=== PATIENT | male | born 1950 | race Caucasian/White ===

== ENCOUNTER 2017-06-07 06:00 | Inpatient (IN) ==
[2017-06-07] MEDS ORDERED: *HR* Phenylephrine 10 MG/ML VIAL ONE (07:28)
[2017-06-07] MEDS ORDERED: Vancomycin 1,000 MG in D5% in Water 250 ML IVPB ONE ×2 (07:30→18:30)
[2017-06-07] MEDS ORDERED: Albuterol 2.5 MG/3 ML NEBULIZER IH ONE (07:30)
[2017-06-07] MEDS ORDERED: Lidocaine -MPF 1% 2 ML VIAL ID ONE (07:30)
[2017-06-07] MEDS ORDERED: CeFAZolin Syr 2,000MG/20 ML 2,000 MG/20 ML SYRINGE IVPB ONE (07:30)
[2017-06-07] MEDS ORDERED: Ringers Solution, Lactated 1,000 ML IVC SCH (07:30)
--- NOTE | 2017-06-07 07:33 | History & Physical Report ---
Date of Encounter: 06/07/17 Time of Encounter: 07:30 24 Hour HP Update - Instructions Instructions: If the History and Physical is less than 30 days old and was completed prior to A.M. admission and or procedure and has NOT been updated on calendar day of procedure please complete this update prior to performing procedure. - Update Patient reports changes in Medical Condition: No Changes in examination, assessment, or condition: No Changes in Medication: No Preop tests/diagnostics Reviewed: Yes Surgery Remains Indicated: Yes Consent for Planned Operative Procedure(s) Verified: Yes - Pre-Operative Checklist Preoperative Checklist Indicated: Yes Prophylactic Antibiotic Ordered: Yes (vancomycin due to MRSA risk) Home Medications Include Beta Pernell: Yes Beta Pernell Taken Today (Day of Surgery): Yes Beta Pernell Taken Yesterday (Day Prior to Surgery): Yes Is VTE Prophylaxis Indicated?: Yes
[2017-06-07] MEDS ORDERED: Heparin 1,000 UNITS/500 mL 500 ML ONE (07:56)
--- NOTE | 2017-06-07 07:58 | Anesthesia Evaluation PreOp ---
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 Hernia, Gastric bypass), Past Anesthesia (Triple Bypass, Ing. Hernia, Gastri Bypass, R. Knee scope, Cardiac Ablation) Alcohol Use: occasionally Drug use: none Medications and Allergies OxyCODONE Immed Rel [Roxicodone 5 MG] 5 - 10 mg PO Q6HR PRN #40 tablet 04/24/15 [Rx] Aspirin Enteric Coated [Aspirin EC] 81 mg PO DAILY 11/24/15 [History] Cholecalciferol (D-3) [Vitamin D] 2,000 unit PO BID 11/24/15 [History] Cyanocobalamin (Vitamin B-12) [Vitamin B-12] 1,000 mcg SL HS 11/24/15 [History] Fluticasone Propionate Nasal [Flonase] 1 spr NS DAILY 11/24/15 [History] Furosemide [Lasix] 20 mg PO DAILY PRN 11/24/15 [History] Isosorbide MONOnitrate (24 HR) [Imdur] 30 mg PO DAILY 11/24/15 [History] Levothyroxine [Synthroid] 50 mcg PO DAILY 11/24/15 [History] Loratadine [Claritin] 10 mg PO DAILY 11/24/15 [History] Losartan [Cozaar] 25 mg PO DAILY 11/24/15 [History] Montelukast [Singulair] 10 mg PO HS 11/24/15 [History] Morphine Immed Rel [Morphine Sulfate] 15 mg PO Q8HR 11/24/15 [History] Omeprazole [PriLOSEC] 20 mg PO BID 11/24/15 [History] OxyCODONE Immed Rel [Roxicodone 5 MG] 5 - 10 mg PO BID PRN 11/24/15 [History] Ranolazine [Ranexa] 500 mg PO BID 07/13/16 [History] Rivaroxaban [Xarelto] 20 mg PO DAILY 11/24/15 [History] Sotalol HCl [Betapace] 120 mg PO BID 11/24/15 [History] Venlafaxine [Effexor] 37.5 mg PO BID 11/24/15 [History] Zolpidem [Ambien] 10 mg PO HS 11/24/15 [History] buPROPion HCl [Zyban] 150 mg PO Q12H 11/24/15 [History] clonazePAM [Klonopin] 1 mg PO HS 11/24/15 [History] 3 Allergy/AdvReac Type Severity Reaction Status Date / Time fentanyl AdvReac See Verified 06/07/17 07:41 Comments NSAIDS (Non-Steroidal AdvReac Nausea Verified 06/07/17 07:41 Anti-Inflamma - Meds/Allergy Pre-op Review Medications Reviewed: Yes Allergies Reviewed: Yes Beta Blockers on Current Med List: No If Beta Blockers taken, Date/Time (Last Dose taken): 05:30 06/07/2017 Anesthesia Results - Labs 04/16/17 stress test EF-67% No Ischemia Laboratory Tests 04/06/15 04/06/15 05/03/17 15:00 15:00 00:07 WBC 7.6 Hgb 16.1 Hct 49.7 Plt Count 214 INR 1.08 Sodium Potassium Chloride Carbon Dioxide BUN Creatinine Hemoglobin A1c 5.3 05/03/17 00:07 WBC Hgb Hct Plt Count INR Sodium 144 Potassium 4.6 Chloride 109 H Carbon Dioxide 27 BUN 14 Creatinine 0.98 Hemoglobin A1c - Imaging EKG: report reviewed (SR, RBBB) Anesthesia Exam O2 Sat Height 1.73 m Height 1.73 m Height 1.73 m Weight 70.307 kg Weight 70.307 kg Weight 70.307 kg O2 Sat by Pulse Oximetry 97 O2 Sat by Pulse Oximetry 97 O2 Sat by Pulse Oximetry 97 Vital Signs Temp Pulse Resp BP Pulse Ox 97.9 F 85 18 101/69 97 06/07/17 06:29 06/07/17 06:29 06/07/17 06:29 06/07/17 06:29 06/07/17 06:29 NPO (# of Hours): > 8 hrs Pain Scale: 0 Pain Scale Used: Numeric (1 - 10) - HEENT Pupil (Motor): Pupils equal, EOMI Mallampati: III Teeth: Edentulous Oral Opening: Greater than 3 - 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
[2017-06-07] MEDS ORDERED: Lidocaine -MPF 2% 2 ML VIAL ONE ×2 (08:20→08:42)
[2017-06-07] MEDS ORDERED: *HR* Rocuronium Bromide 50 MG/5 ML VIAL ONE ×2 (08:20→10:42)
[2017-06-07] MEDS ORDERED: *HR* Propofol 200 MG/20 ML VIAL IVP ONE (08:20)
[2017-06-07] MEDS ORDERED: Ketamine *HR* 500 MG/10 ML MDV ONE (08:21)
[2017-06-07] MEDS ORDERED: *HR* FentaNYL (PF) 100 MCG/2 ML VIAL ONE (08:47)
[2017-06-07] MEDS ORDERED: *HR* Midazolam HCl 2 MG/2 ML VIAL ONE (08:48)
[2017-06-07] MEDS ORDERED: Heparin 1,000 UNITS/500 mL 1,500 ML ONE (08:49)
[2017-06-07] MEDS ORDERED: Vancomycin 1,000 MG, Sodium Chloride IRRigation 1,000 ML IR ONE (09:00)
--- NOTE | 2017-06-07 09:07 | Electrocardiograph Report ---
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
[2017-06-07] MEDS ORDERED: *HR* Labetalol 20 MG/4 ML SYRINGE IVP PRN ×2 (10:03→15:33)
[2017-06-07] MEDS ORDERED: Ondansetron 4 MG/2 ML VIAL IVP PRN (10:03)
[2017-06-07] MEDS ORDERED: *HR* Heparin 5,000 UNIT/ML VIAL ONE ×2 (11:11→11:34)
[2017-06-07] MEDS ORDERED: *HR* Magnesium Sulfate 1 GM/2 ML VIAL ONE ×2 (11:31→11:40)
[2017-06-07] MEDS ORDERED: *HR* HYDROmorphone 2 MG/ML SYRINGE ONE (11:35)
[2017-06-07] MEDS ORDERED: Vancomycin 1,000 MG VIAL ONE (11:47)
[2017-06-07 12:14] LABS: ABG Base Excess -2 mEq/L (-2 to 3); ABG Chloride 107 mEq/L (98-107); ABG Glucose 178 mg/dL (60-95); ABG HCO3 23 mEq/L (21-27); ABG Ionized Calcium 1.17 mmol/L (1.15-1.35); ABG Oxygen Saturation 100 % (95-98); ABG PCO2 42 mmHg (35-45); ABG PH 7.35 pH Units (7.32-7.45); ABG PO2 197 mmHg (85-104); ABG TCO2 24 mEq/L (20-26)
[2017-06-07] MEDS ORDERED: Ondansetron 4 MG/2 ML VIAL ONE (12:28)
[2017-06-07] MEDS ORDERED: Dexamethasone 4 MG/ML VIAL ONE (12:28)
[2017-06-07] MEDS ORDERED: SUGAMMADEX SODIUM 500 MG/5 ML VIAL IV ONE (12:49)
--- NOTE | 2017-06-07 13:59 | Operative Note ---
Date of procedure: 06/07/17 Pre-op diagnosis: Peripheral vascular disease with ulceration Post-op diagnosis: same Procedure: 1. Aortobifemoral artery bypass with 14 x 7mm Hemashield graft. 2. Bilateral common and deep femoral artery endarterectomy. Complications: None Anesthesia: GETA Surgeon: Joni Lora Was there an assistant baseball coach present: Yes Computer Operations Supervisor: Stevie Condon Estimated blood loss (cc): 300 Specimen: thrombus and plaque Condition: stable Disposition: PACU Procedure in Detail: Indications: The patient is a 66 year old male with a history of coronary artery disease, hypertension, hyperlipidemia, COPD, coronary artery disease and tobacco abuse. He has also undergone an open gastric bypass. He presented to clinic with peripheral vascular disease with bilateral heel ulcerations. 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 Aortobifemoral artery bypass was recommended for wound healing, symptomatic relief and to reduce his risk of limb loss. Procedure: The patient was identified in the preoperative area. The risks, benefits, and alternatives of the procedure were discussed. All questions were answered. The patient was taken to the operating room and placed in supine position on the operating room table. After the induction of general endotracheal anesthesia, he was cleaned and draped in normal sterile fashion. A two surgeon approach was utilized for this procedure in order to minimize anesthetic time and the risks for complications due to the patients comorbid conditions. In addition, a two surgeon approach was used for intraoperative decision making. An oblique incision was made over the right groin scar sharply. Hemostasis was obtained with electrocautery. Through a process of blunt, sharp, and electrocautery dissection, the right femoral vessels were dissected circumferentially and surrounded with vessel loops. The right limb of his femoral to femoral artery bypass graft was also dissected. An oblique incision was then made over the left groin scar sharply. Hemostasis was obtained with electrocautery. Through a process of blunt, sharp, and electrocautery dissection, the left femoral vessels were dissected circumferentially and surrounded with vessel loops. A midline incision was made sharply. This included his dense midline incision. Hemaostasis was obtained via electrocautery. Through a process of blunt, sharp and electrocautery dissection, the subcutaneous tissue, fascia and peritoneum were traversed. He was noted to have a ventral hernia as a result of his prior surgery. Multiple omental adhesions were taken down from the abdominal wall sharply ad with electrocautery. A brief exploration of the peritoneum revealed no acute pathology. Additional lysis of adhesions was performed sharply. The aorta was palpated in the retroperitoneum. The retroperitoneum was opened with blunt, sharp and electrocautery dissection. The aorta was dissected along it's anterior, medial and lateral surfaces to below the renal arteries. The dissection was extended down to the aortic bifurcation. A clamp was used to tunnel through the retroperitoneum to each femoral vessel. The patient received 5000 units of intravenous heparin. Additional heparin was given during the case to maintain adequate anticoagulation. A 14 x 7mm dacron bifurcated graft was cut to appropriate length. The infrarenal aorta was clamped proximally and distally. A longitudinal incision was made into the aorta between the clamps. Significant plaque and thrombus was removed. The aorta was flushed by releasing the clamp and a large organized thrombus emerged. The aorta was clamped again and infused with heparinized saline. The graft was cut to fit the defect and sutured in place with a running 3-0 prolene. After completing the anastamosis, the graft limbs were clamped and the aorta was reopened. Thrombin and gelfoam were used to aid in hemostasis. The graft limbs were tunneled to the femoral vessels. The bilateral femoral vessels were occluded and longitudinal arteriotomies were made in the common femoral arteries. Severe atherosclerotic plaque and chronic thrombus was present in the bilateral common and deep femoral arteries. Using a dental freer, an endarterectomy was then performed along the bilateral common and deep femoral arteries. Retrograde deep femoral artery flow was then noted bilaterally. The bilateral graft limbs were then cut to fit the arteriotomies and sutured in place with a running 6-0 Prolene. Prior to completing the anastamoses, the femoral vessels were flushed through the graft anastamoses and heparin was infused into the lumen. The anastamoses were completed and flow was restored in the right lower extremity. After assuring appropriate hemodynamics flow was restored to the left lower extremity. Thrombin and gelfoam were used to aid in hemostasis. Polyphasic signals were noted distal to the anastamoses. The wounds were irrigated with antibiotic-containing saline. Platelet rich and platelet poor plasma were infused into the wounds. Meticulous hemostasis was obtained throughout the wounds with electrocautery. The femoral wounds were reapproximated with layers of 2-0 and 3-0 Vicryl. Skin was reapproximated with 3-0 Monocryl. The abomen and pelvis were irrigated with antibiotic containing saline. Meticulous hemostasis was obtained throughout the retroperitoneum with electrocautery. The retroperitoneum was reapproximated with 2-0 Vicryl. The abdominal contents were returned to their normal anatomic position The nasogastric tube was checked for position. The midline fascia was reapproximated with looped PDS suture. The subcutaneous tissue was reapproximated with 2-0 Vicryl. Platelet rich and platelet poor plasma were infused into the wound. Skin was reapproximated with 3-0 Monocryl. Sterile dressings were applied. The patient was extubated and taken to recovery room in stable condition.
[2017-06-07] MEDS: *HR* HYDROmorphone (PF) 1 MG/ML SYRINGE IVP PRN ×4 (14:03→14:26)
--- NOTE | 2017-06-07 14:08 | Operative Note ---
Date of procedure: 06/07/17 Pre-op diagnosis: PAD and heel ulcers Post-op diagnosis: same Procedure: Aortobifemoral bypass graft with 14 x 7 mm Dacron prosthesis Bilateral femoral and profunda femoris endarterectomy Complications: None none Anesthesia: THAO Surgeon: Joni Lora Co-Surgeon: Stevie Condon Was there an periodontal assistant present: No Estimated blood loss (cc): 300 Specimen: Aortic and femoral thrombus and plaque Disposition: PACU Procedure in Detail: History Mr. Ramirez is a 66-year-old white male with known lower cavity vascular occlusive disease. He's had progressive changes in his developed ulcerations of his heels. Workup has revealed significant aortoiliac occlusive disease. He now comes for elective revascularization of both lower extremities. Procedure After informed consent was obtained the patient was taken the operating room. General endotracheal anesthesia was established under arterial line pressure monitoring. The abdomen and groins and upper thighs were sterilely prepped and draped. A timeout protocol was observed. 2 team surgical approach was used for this procedure due to the patient's comorbid conditions. Also it was utilized in order to expedite complex intraoperative decision-making as well as to minimize, patient's associated with prolonged anesthesia blood loss. The femoral areas were then explored through transverse incisions simultaneously. Dissection was carried down to the common femoral artery and femoral artery bifurcation. Marked atherosclerotic and calcific disease was noted. The groins were then packed with an back containing gauzes. The abdomen was then opened through a vertical midline incision. The patient had had previous abdominal surgery with gastric bypass surgery. Dissection was made and the peritoneal cavity was opened. Adhesions were then taken down and the peroneal cavity was then free. Exploration of the abdominal cavity revealed no abnormalities except those associated with the patient's previous gastric bypass surgery. This row was then reflected into the right upper quadrant. The retroperitoneum was opened and identification was made of the aorta which was then dissected in its infrarenal location. An appropriate place for a cross- clamp was selected both proximally and distally. The tunneling was then completed from the groin into the aortic area. The patient that had a 14 x 7 graft selected. 5000 units heparin were administered intravenously. After 3 minute delay the aorta was clamped. The aorta was opened in a longitudinal fashion anteriorly. The large amount of chronic thrombus and atherosclerotic material was encountered. This was then greeted in the area was flushed with heparinized saline. The aorta itself was flushed as well. The proximal anastomosis was then fashioned in an end to side configuration with a 14 x 7 mm dacryon prosthesis. 3-0 Prolene was used for this anastomosis. After hemostasis was achieved at the proximal anastomosis the grafts were then tunneled through the previously made tunnels into the groin area. The common femoral arteries were then opened. Endarterectomies were performed bilaterally. There is significant calcific disease as well as chronic thrombus. The grafts were then anastomosed in an end-to-side fashion using 6-0 Prolene suture. After appropriate backbleeding and flushing the graft was opened. Patient had no hemodynamic distress. The wounds were then irrigated with antibiotic containing solution. Hemostasis was achieved. The groin wounds were closed first using absorbable suture. Attention was then directed to the abdomen. The retroperitoneal area was then closed over the graft. The viscera was placed back into its normal position. The fascia over the closed with a looped PDS suture and the skin edges closed with absorbable suture. Dry sterile dressings were applied. The patient was hemodynamically stable and x-rayed in the operating room. He was taken to the recovery room in stable condition.
[2017-06-07] MEDS ORDERED: *HR* Promethazine 25 MG/ML VIAL ONE (14:13)
[2017-06-07] MEDS: *HR* Promethazine 25 MG/ML VIAL IVP PRN ×2 (14:15→14:27)
[2017-06-07] MEDS ORDERED: Metoclopramide 10 MG/2 ML VIAL IVP PRN (14:47)
[2017-06-07] MEDS ORDERED: Acetaminophen IV 1,000 MG/100 ML INFUS..BTL IVPB ONE (14:48)
[2017-06-07] MEDS ORDERED: Scopolamine Patch 1.5 MG PATCH.TD72 TD ONE (14:48)
[2017-06-07] MEDS ORDERED: Acetaminophen IV 1,000 MG/100 ML INFUS..BTL ONE (14:57)
[2017-06-07] MEDS ORDERED: Metoclopramide 10 MG/2 ML VIAL ONE (14:57)
--- NOTE | 2017-06-07 15:10 | Anesthesia Evaluation Post Op ---
Date of Encounter: 06/07/17 Time of Encounter: 15:09 - Vital Signs Vital Signs: Vital Signs/O2 Sat, Most Current Temp Pulse Resp BP Pulse Ox 97.2 F L 74 14 158/90 100 06/07/17 14:43 06/07/17 15:03 06/07/17 15:03 06/07/17 15:03 06/07/17 15:03 - Lungs Lungs: Clear Ascult./Percussion - Airway Airway: Non-obstructed - Cardiovascular Regular Rate - Mental Status Mental Status: Alert & Oriented, Answers Appropriately - Pain Pain Scale: 0 Pain Scale used: Numeric (1 - 10) - Hydration Hydration: NPO, Hyman catheter - Discharge PostOp Status: Transfer Patient to floor
[2017-06-07] MEDS ORDERED: Naloxone 0.4 MG/ML INJ IVP PRN ×2 (15:33)
[2017-06-07] MEDS ORDERED: *HR* LORazepam 2 MG/ML VIAL ONE (16:07)
[2017-06-07] MEDS: *HR* LORazepam 2 MG/ML VIAL IVP PRN ×2 (16:32→23:05)
[2017-06-07] MEDS: 0.9 % Sodium Chloride 1,000 ML IVC SCH (16:35)
[2017-06-07] MEDS: CeFAZolin Premix DUPLEX 2,000 MG/50 ML BAG IVPB SCH ×2 (16:41→23:06)
[2017-06-07 16:58] LABS: Basophils # 0.1 K/mcL (0.0-0.2); Basophils % 0.5 %; Eosinophils # 0.1 K/mcL (0.0-0.6); Eosinophils % 0.3 %; Hemoglobin 14.8 g/dL (12.9-16.9); Immature Granulocytes % 0.5 % (0-4); Lymphocytes # 1.7 K/mcL (0.6-4.6); Lymphocytes % 11.5 %; Mean Corpuscular HGB Conc 32.2 g/dL (31.6-35.5); Mean Corpuscular Hemoglobin 31.5 pg (28.0-33.3); Mean Corpuscular Volume 97.9 fL (83.0-100.0); Mean Platelet Volume 11.2 fL (9.4-12.4); Monocytes # 0.7 K/mcL (0.0-1.3); Monocytes % 4.9 %; Neutrophils # 12.4 K/mcL (1.6-8.9); Platelet Count 155 K/mcL (140-400); Red Cell Distribution Width 13.8 % (11.5-14.5); Segmented Neutrophils % 82.3 %
[2017-06-07] MEDS: *HR* Morphine 30 MG/ 30 ML PCA IVC PRN ×2 (17:26→23:46)
[2017-06-07] MEDS: *HR* Metoprolol 5 MG/5 ML VIAL IVP SCH (18:14)
[2017-06-07] MEDS: Nicotine 21 MG PATCH.TD24 TD SCH (18:57)
[2017-06-08] MEDS: *HR* Metoprolol 5 MG/5 ML VIAL IVP SCH ×4 (00:33→20:10)
[2017-06-08 03:57] LABS: Basophils % 0.2 %; Hemoglobin 14.2 g/dL (12.9-16.9); Immature Granulocytes % 0.5 % (0-4); Red Cell Distribution Width 13.7 % (11.5-14.5); Segmented Neutrophils % 79.5 %
[2017-06-08 03:58] LABS: Basophils # 0.1 K/mcL (0.0-0.2); Hematocrit 43.9 % (37.5-50.1); Lymphocytes # 2.4 K/mcL (0.6-4.6); Lymphocytes % 8.6 %; Mean Corpuscular HGB Conc 32.3 g/dL (31.6-35.5); Mean Corpuscular Hemoglobin 31.3 pg (28.0-33.3); Mean Corpuscular Volume 96.9 fL (83.0-100.0); Mean Platelet Volume 11.4 fL (9.4-12.4); Monocytes # 3.1 K/mcL (0.0-1.3); Monocytes % 11.2 %; Platelet Count 153 K/mcL (140-400); Red Blood Count 4.53 M/mcL (4.19-5.50)
[2017-06-08 04:02] LABS: Neutrophils # 21.8 K/mcL (1.6-8.9)
[2017-06-08 04:17] LABS: BUN/Creatinine Ratio 18 (6-26); Blood Urea Nitrogen 23 mg/dL (8-23); Calcium 8.4 mg/dL (8.6-10.3); Carbon Dioxide 23 mEq/L (23-29); Chloride 106 mEq/L (98-107); Glucose 155 mg/dL (70-105); Osmolality,Calculated 289 (280-300); Potassium 4.8 mEq/L (3.5-5.1); Sodium 136 mEq/L (136-145); eGFR For African Americans > 60 (> 60); eGFR For Non-African Americans 58 (> 60)
[2017-06-08 04:35] LABS: Platelet Estimate Normal (Normal); Reactive Lymphocytes Present (Not Present); Toxic Granulation Present (Not Present)
[2017-06-08] MEDS: *HR* Morphine 30 MG/ 30 ML PCA IVC PRN (06:18)
[2017-06-08] MEDS: Levothyroxine Sodium 100 MCG VIAL IVP SCH (08:02)
[2017-06-08] MEDS: Aspirin Enteric Coated 81 MG Tablet PO SCH (08:02)
[2017-06-08] MEDS ORDERED: *HR* Metoprolol 5 MG/5 ML VIAL IVP ONE (08:05)
[2017-06-08] MEDS ORDERED: *HR* Etomidate 20 MG/10 ML AMPUL IVP ONE (08:14)
[2017-06-08] MEDS ORDERED: *HR* Rocuronium Bromide 50 MG/5 ML VIAL IVC ONE (08:14)
[2017-06-08] MEDS: Fluticasone Propionate Nasal 50 MCG/SPRAY BOTTLE NS SCH (10:22)
[2017-06-08] MEDS: Nicotine 21 MG PATCH.TD24 TD SCH (10:23)
[2017-06-08] MEDS ORDERED: Naloxone 0.4 MG/ML INJ ONE (15:00)
[2017-06-08] MEDS ORDERED: *HR* Morphine 30 MG/ 30 ML PCA IVC PRN (15:11)
[2017-06-08] MEDS ORDERED: 0.9 % Sodium Chloride 500 ML IVC ONE ×2 (15:22→21:35)
[2017-06-08] MEDS ORDERED: *HR* Dextrose 50 % in Water (Syg) 50 ML SYRINGE ONE ×3 (16:09→19:31)
--- NOTE | 2017-06-08 17:00 | Event Note ---
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 He is POD 1 Chart review reveals hx of Afib on xarelto, Hx of DVT with IVC placed, on xarelto at home. The patient complains of epigastric discomfort STAT CXR (pending interpretation by radiologist) shows small RML/RLL infiltrate EKG showed Afib with RVR, RBBB, TWI in lateral leads (unchanged when compared with prior EKGs) ABG shows resp acidosis with hypoxia and hypercapnea Patient was placed on BiPAP Plan is to transfer patient to the intensive care unit for management of acute hypoxic respiratory failure, possibly secondary to PE, Pneumonia Follow STAT labs Patient is very poor IV access, may need central line placement for IV access Dr. Jackson was met in ICU and patient discussed with him
[2017-06-08 17:03] LABS: ABG Base Excess -14 mEq/L (-2 to 3); ABG HCO3 12 mEq/L (21-27); ABG Oxygen Saturation 80 % (95-98); ABG PCO2 30 mmHg (35-45); ABG PH 7.22 pH Units (7.32-7.45); ABG PO2 52 mmHg (85-104); ABG TCO2 13 mEq/L (20-26)
[2017-06-08 17:23] LABS: Hematocrit 35.1 % (37.5-50.1); Mean Corpuscular HGB Conc 31.9 g/dL (31.6-35.5); Mean Corpuscular Hemoglobin 31.8 pg (28.0-33.3); Mean Corpuscular Volume 99.7 fL (83.0-100.0); Mean Platelet Volume 11.1 fL (9.4-12.4); Platelet Count 105 K/mcL (140-400); Red Blood Count 3.52 M/mcL (4.19-5.50); Red Cell Distribution Width 14.1 % (11.5-14.5)
[2017-06-08 17:25] LABS: ABG Base Excess -11 mEq/L (-2 to 3); ABG HCO3 16 mEq/L (21-27); ABG Oxygen Saturation 100 % (95-98); ABG PCO2 39 mmHg (35-45); ABG PH 7.23 pH Units (7.32-7.45); ABG PO2 201 mmHg (85-104); ABG TCO2 17 mEq/L (20-26)
[2017-06-08] MEDS ORDERED: Lacri-Lube 3.5 GM TUBE BOTH EYES PRN (17:30)
[2017-06-08 17:34] LABS: Hemoglobin 11.2 g/dL (12.9-16.9)
[2017-06-08] MEDS ORDERED: Naloxone 0.4 MG/ML INJ IVP PRN (17:34)
--- NOTE | 2017-06-08 17:42 | Vascular/[facility] Progress Note ---
Date of Encounter: 06/08/17 Time of Encounter: 07:40 - Assessment and plan (1) Atherosclerosis of both lower extremities with bilateral ulceration Current Visit: Yes Status: Chronic The patient is postoperative day #1 after an aortobifemoral artery bypass. He is hemodynamically stable at this time. He has nausea. He pulled his NG tube out and will now have a new NG tube placed. He will remain NPO. His WBC is elevated. His hemoglobin is normal. He remains afebrile. Continue with intravenous fluids. Start DVT prophylaxis this evening. Repeat labs in am. Qualifiers: Peripheral atherosclerosis artery type: bypass graft, nonbiological Lower extremity ulceration location: heel Qualified Code(s): I70.634 - Atherosclerosis of nonbiological bypass graft(s) of the right leg with ulceration of heel and midfoot; I70.644 - Atherosclerosis of nonbiological bypass graft(s) of the left leg with ulceration of heel and midfoot; I70.644 - Atherosclerosis of nonbiological bypass graft(s) of the left leg with ulceration of heel and midfoot; I70.644 - Atherosclerosis of nonbiological bypass graft(s) of the left leg with ulceration of heel and midfoot; I70.644 - Atherosclerosis of nonbiological bypass graft(s) of the left leg with ulceration of heel and midfoot; I70.644 - Atherosclerosis of nonbiological bypass graft(s) of the left leg with ulceration of heel and midfoot; I70.644 - Atherosclerosis of nonbiological bypass graft(s) of the left leg with ulceration of heel and midfoot (2) Hypertension Current Visit: Yes Status: Chronic Continue with beta anais. Qualifiers: Hypertension type: essential hypertension Qualified Code(s): I10 - Essential (primary) hypertension (3) Atrial fibrillation Current Visit: Yes Status: Chronic Qualifiers: Atrial fibrillation type: paroxysmal Qualified Code(s): I48.0 - Paroxysmal atrial fibrillation (4) CAD (coronary artery disease) Current Visit: Yes Status: Chronic Qualifiers: Coronary Disease-Associated Artery/Lesion type: [place] artery [place] vs. transplanted heart: [place] heart Associated angina: without angina Qualified Code(s): I25.10 - Atherosclerotic heart disease of [place] coronary artery without angina pectoris (5) Hyperlipidemia Current Visit: Yes Status: Chronic Qualifiers: Hyperlipidemia type: mixed hyperlipidemia Qualified Code(s): E78.2 - Mixed hyperlipidemia (6) Tobacco abuse Current Visit: Yes Status: Acute Nicotine patch - Subjective Interval history: The patient is alert. He reports adequate pain control. He complains of nausea. He has had no vomiting, no chest pain or shortness of breath. - Physical Examination HEENT: Present: Pupils equal Cardiac: Present: Normal S1 and S2, Other (tachyardic) Lungs: Present: Normal Breath Sounds, No Wheeze, Rales, Rhonchi Neuro: Present: Alert and responsive, Motor nerves grossly intact, Sensory nerves grossly intact Vascular: Present: Normal capillary refill, Surgical incisions (bandages dry, no heamtoma), Other (pedal signals present bilaterally, compartments soft) Abdomen: Present: Soft, Other (incisional tenderness, no bowel sounds) Skin: Present: No rashes noted on visualized skin - VTE Documentation of Mechanical Device: Intermittent pneumatic compression device Results 06/08/17 19:40 06/08/17 17:15 Consult Discharge Plan - Plan Referrals: Joni Lora MD [Partnered Physician] - 07/17/17 2:20 pm Arti Thacker MD [Primary Care Provider] - 06/15/17 11:00 am
[2017-06-08 17:58] LABS: Alanine Aminotransferase 38 Units/L (7-52); Albumin 2.6 g/dL (3.5-5.7); Albumin/Globulin Ratio 1.4 (1.1-2.2); Alkaline Phosphatase 53 Units/L (34-104); Aspartate Amino Transferase 119 Units/L (13-39); BUN/Creatinine Ratio 15 (6-26); Bilirubin,Total 0.5 mg/dL (0.3-1.0); Blood Urea Nitrogen 33 mg/dL (8-23); Calcium 7.8 mg/dL (8.6-10.3); Carbon Dioxide 20 mEq/L (23-29); Chloride 112 mEq/L (98-107); Globulin 1.9 g/dL (2.4-3.5); Glucose 31 mg/dL (70-105); Magnesium 2.2 mg/dL (1.6-2.6); Osmolality,Calculated 294 (280-300); Phosphorous 6.1 mg/dL (2.7-4.5); Potassium 4.4 mEq/L (3.5-5.1); Sodium 140 mEq/L (136-145); Total Protein 4.5 g/dL (6.4-8.9); eGFR For African Americans 36 (> 60); eGFR For Non-African Americans 30 (> 60)
--- NOTE | 2017-06-08 17:59 | Event Note ---
Date of Encounter: 06/08/17 Time of Encounter: 17:30 Called to see patient regarding progressive hypoxia. Rapid response called. Patient started on BIPAP and transferred to ICU. Ultimately he has been intubated. Exam reveals a soft abdomen. His incisions are clean, dry and intact. He has pedal signals. Patient discussed with Dr. Salas. Patient family contacted and clinical condition was discussed.
[2017-06-08] MEDS ORDERED: *HR* Heparin 5,000 UNIT/ML VIAL SQ SCH ×2 (18:00)
[2017-06-08] MEDS ORDERED: Vancomycin 1,000 MG in D5% in Water 250 ML IVPB SCH (18:00)
--- NOTE | 2017-06-08 18:40 | Procedure Note ---
<Alex Hinkle - Last Filed: 06/08/17 18:35> Date of procedure: 06/08/17 Pre-op diagnosis: septic shock Post-op diagnosis: same Procedure: Central Venous Catheter (CVC, Central Line) Placement Date: 06/08/2017 Time: 1800 Indication: Hemodynamic monitoring/Intravenous access Resident: Alex Hinkle DO Attending: Otto Salas MD This procedure was placed in an emergency setting. A time-out was completed verifying correct patient, procedure, site, positioning , and special equipment if applicable. The patient was placed in a dependent position appropriate for central line placement based on the vein to be cannulated. The patients right neck was prepped and draped in sterile fashion. 1 % Lidocaine was used to anesthetize the surrounding skin area. A triple lumen 7- [place] catheter was introduced into the the internal jugular using the Seldinger technique and under ultrasound guidance. The catheter was threaded smoothly over the guide wire and appropriate blood return was obtained. Each lumen of the catheter was evacuated of air and flushed with sterile saline. The catheter was then sutured in place to the skin and a sterile dressing applied. Perfusion to the extremity distal to the point of catheter insertion was checked and found to be adequate. Otto Salas MD was present for the entire procedure. Estimated Blood Loss: 0ml The patient tolerated the procedure well and there were no complications. Anesthesia: local Was there an operations assistant present: No Estimated blood loss (cc): 0 Specimen: none Pathology: none sent Condition: critical Disposition: ICU <Otto Salas W - Last Filed: 06/08/17 18:58> - Attending Attestation I examined this patient and my medical decision-making was reviewed with the Resident Physician. I agree with the documented findings except to the extent set forth below. I supervised Dr. Hinkle in this central venous catheter insertion and was available and participated in the trinh and critical portions
[2017-06-08] MEDS: Norepinephrine 4 MG in D5% in Water 250 ML IVC SCH ×2 (19:00→22:27)
--- NOTE | 2017-06-08 19:04 | Procedure Note ---
Date of procedure: 06/08/17 Pre-op diagnosis: Respiratory Failure Post-op diagnosis: same Procedure: Intubation Time out was deffered as the procedure was emergent.. The patient was placed in a flat position. Sedation was obtained using Rocironium and Etomidate (see RN sheet) The patient was easily ventilated using BIPAP then an Ambu bag. A COOK 3 BLADE was used and inserted into the oropharynx at which time there was a Grade 1 view of the vocal cords. A 7.5-fijian endotracheal tube was inserted and visualized going through the vocal cords. The stylette was removed. Colorimetric change was visualized on the CO2 meter. Breath sounds were heard in both lung moseley equally. The endotracheal tube was placed at 24 cm, measured at the lips A chest x-ray was ordered and verified endotrachealtube placement without evidence of Pneumothorax . Surgeon: Otto Salas Was there an admissions assistant present: No Estimated blood loss (cc): 0 Specimen: non e Condition: critical Disposition: no change
--- NOTE | 2017-06-08 19:06 | Pulmonology Consult Note ---
<Otto Salas W - Last Filed: 06/08/17 19:31> Date of Encounter: 06/08/17 Medications and Allergies Aspirin Enteric Coated [Aspirin EC] 81 mg PO DAILY 11/24/15 [History] Cholecalciferol (D-3) [Vitamin D] 2,000 unit PO BID 11/24/15 [History] Fluticasone Propionate Nasal [Flonase] 1 spr NS DAILY 11/24/15 [History] Isosorbide MONOnitrate (24 HR) [Imdur] 30 mg PO DAILY 11/24/15 [History] Loratadine [Claritin] 10 mg PO DAILY 11/24/15 [History] Losartan [Cozaar] 25 mg PO DAILY 11/24/15 [History] Montelukast [Singulair] 10 mg PO HS 11/24/15 [History] Rivaroxaban [Xarelto] 20 mg PO DAILY 11/24/15 [History] Sotalol HCl [Betapace] 120 mg PO BID 11/24/15 [History] Zolpidem [Ambien] 10 mg PO HS PRN 11/24/15 [History] clonazePAM [Klonopin] 1 mg PO BID 11/24/15 [History] Docusate [Colace] 100 mg PO BID 06/07/17 [History] Levothyroxine [Synthroid] 100 mcg PO 0630 06/07/17 [History] Morphine Immed Rel [Morphine Sulfate] 15 mg PO Q8H PRN 06/07/17 [History] Omeprazole [PriLOSEC] 40 mg PO BID 06/07/17 [History] Ondansetron [Zofran] 8 mg PO Q8H PRN 06/07/17 [History] OxyCODONE/APAP 7.5/325 [Percocet 7.5/325 MG] 1 each PO Q6H PRN 06/07/17 [History ] Simvastatin [Zocor] 20 mg PO HS 06/07/17 [History] Venlafaxine HCl [Venlafaxine HCl ER] 225 mg PO DAILY 06/07/17 [History] 3 Allergy/AdvReac Type Severity Reaction Status Date / Time fentanyl AdvReac See Verified 06/07/17 07:41 Comments NSAIDS (Non-Steroidal AdvReac Nausea Verified 06/07/17 07:41 Anti-Inflamma All Systems: A 10-system review of systems was performed and is negative for pertinent findings except as documented above in the HPI. Physical Examination Vital Signs: Vital Signs, Last 4 Hours Temp Pulse Resp BP Pulse Ox 06/08/17 17:31 20 100 06/08/17 16:33 97.1 F L 110 36 158/129 87 06/08/17 16:24 98/42 06/08/17 15:59 97.2 F L 110 22 Ventilator Settings Ventilator Settings: Ventilator Settings, Last 8 Hours Ventilator Mode A/C Ventilator Tidal Volume 500 Setting Ventilator Respiratory Rate 20 Setting Actual Respiratory Rate 20 Positive End Expiratory 8 Pressure Peak Inspiratory Airway 26 Pressure Results - Laboratory Findings CBC and BMP: 06/08/17 17:15 06/08/17 17:15 ABG ABG pH 7.23 pH Units (7.32-7.45) L 06/08/17 17:22 ABG pCO2 39 mmHg (35-45) 06/08/17 17:22 ABG pO2 201 mmHg (85-104) H D 06/08/17 17:22 ABG O2 Saturation 100 % (95-98) H 06/08/17 17:22 Abnormal lab findings: Abnormal lab results WBC 16.9 K/mcL (4.3-11.1) H 06/08/17 17:15 RBC 3.52 M/mcL (4.19-5.50) L 06/08/17 17:15 Hgb 11.2 g/dL (12.9-16.9) L D 06/08/17 17:15 Hct 35.1 % (37.5-50.1) L 06/08/17 17:15 Plt Count 105 K/mcL (140-400) L 06/08/17 17:15 Neutrophils # 21.8 K/mcL (1.6-8.9) H 06/08/17 03:26 Monocytes # 3.1 K/mcL (0.0-1.3) H 06/08/17 03:26 Reactive Lymphocytes Present (Not Present) A 06/08/17 03:26 Toxic Granulation Present (Not Present) A 06/08/17 03:26 ABG pH 7.23 pH Units (7.32-7.45) L 06/08/17 17:22 ABG pO2 201 mmHg (85-104) H D 06/08/17 17:22 ABG HCO3 16 mEq/L (21-27) L 06/08/17 17:22 ABG Total CO2 17 mEq/L (20-26) L 06/08/17 17:22 ABG O2 Saturation 100 % (95-98) H 06/08/17 17:22 ABG Base Excess -11 mEq/L (-2 to 3) L 06/08/17 17:22 ABG Hematocrit 37.0 % (37.5-50.1) L 06/07/17 12:07 Glucose 178 mg/dL (60-95) H 06/07/17 12:07 Chloride 112 mEq/L (98-107) H 06/08/17 17:15 Carbon Dioxide 20 mEq/L (23-29) L 06/08/17 17:15 BUN 33 mg/dL (8-23) H 06/08/17 17:15 Creatinine 2.25 mg/dL (0.70-1.30) H 06/08/17 17:15 Est GFR ( Amer) 36 (> 60) L 06/08/17 17:15 Est GFR (Non-Af Amer) 30 (> 60) L 06/08/17 17:15 Glucose 31 mg/dL (70-105) L* 06/08/17 17:15 POC Glucose 125 (58-89) H 06/08/17 10:16 Calcium 7.8 mg/dL (8.6-10.3) L 06/08/17 17:15 Phosphorus 6.1 mg/dL (2.7-4.5) H 06/08/17 17:15 AST 119 Units/L (13-39) H 06/08/17 17:15 Troponin I 0.04 ng/mL (< 0.04) H* 06/08/17 17:15 B-Natriuretic Peptide 346 pg/mL (Less than 100) H 06/08/17 17:15 Serum Total Protein 4.5 g/dL (6.4-8.9) L 06/08/17 17:15 Albumin 2.6 g/dL (3.5-5.7) L 06/08/17 17:15 Globulin 1.9 g/dL (2.4-3.5) L 06/08/17 17:15 - Clinical Findings Intake & Output: Intake & Output 06/08/17 06/08/17 06/08/17 07:59 15:59 23:59 Intake Total 0 / 0 0 / 0 Output Total 45 / 45 900 / 900 Balance -45 / -45 -900 / -900 Weight 71.6 kg Consult Discharge Plan - Plan Referrals: Joni Lora MD [Partnered Physician] - 07/17/17 2:20 pm Arti Thacker MD [Primary Care Provider] - 06/15/17 11:00 am - Attending Attestation I examined this patient and my medical decision-making was reviewed with the Resident Physician. I agree with the documented findings, disposition and treatment plan as described except to the extent set forth below. We independently had [id number] contact with the patient I spent 40min of Critical Care time with this patient. It involved decision making of high complexity to assess, manipulate, and support vital organ system failure and/or to prevent further life threatening deterioration of the patient' s condition. The time involved in the performance of separately reportable procedures was not counted toward critical care time. Patient seen and examined at bedside Labs, radiology, chart personally reviewed. 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 When I examined the patient prior to intubation he was able to follow commands and arousable and moved all extremities to command without evidence of focal neurological deficit. Pulm: Acute hypoxic respiratory failure secondary to likely pneumonia cannot exclude pulmonary embolus he is now intubated and on ventilator acceptable peak pressures continue low tidal volume ventilatory strategy for possibility of progression to ARDS. Repeat ABG pending and we will adjust Vent accordingly. Ideally could obtain CTA of the chest however he has acute kidney injury which makes the risk of contrast greater than benefit in this case we will start empiric heparin while closely monitoring his H&H because of the high pretest probability of pulmonary embolus including his past medical history Cards: Vasodilatory shock likely secondary to sepsis less likely pulmonary embolus ECG troponin and BMP pending. Consider echocardiogram based upon clinical course. Fluid resuscitation given trend lactate FEN-GI: Nothing by mouth for now GI prophylaxis given. Noted to have free air under diaphragm CT abdomen and pelvis also ordered to evaluate this Renal: Non Anuric RUBY cont urine output monitored as her electrolytes ID: Suspected pneumonia and postoperative period he is on antimicrobials to cover for hospital-acquired organisms blood sputum and urine cultures will be sent de-escalate antimicrobials based upon sensitivities Heme/Onc: Start high-intensity heparin infusion for presumed pulmonary embolus. He has a slight drop in his H&H from yesterday which is thought to be postoperative in nature. No clear evidence of hemorrhage Endo: Glucose Monitored is noted to be hypoglycemic we will follow this closely Integ/MSK: Skin Care per routine ICU Nursing Protocol to prevent ulcers. Lines: All lines examined without evidence of infection : Dispo: Remain in ICU for ongoing critical care needs CODE: Full his son and [id number] were updated at bedside <Alex Duff S - Last Filed: 06/08/17 21:37> Date of Encounter: 06/08/17 Time of Encounter: 19:06 Assessment and Plan (1) Respiratory failure Current Visit: Yes Status: Acute Patient began experiencing dyspnea earlier this afternoon and subsequently continued to grow's. The patient was subsequently intubated and placed on a ventilator. The patient does have a history of PE and is not currently on Zarontin. With his past history of PE we are concerned about possibility as well as combined with the patient's recent vascular aortobifemoral bypass. The patient will be started on heparin. His hemoglobin we continued to be monitored as the patient is in the ICU. In addition the patient was noted to have a left pleural effusion on chest x-ray. Given the patient's recent surgery and toward failure, we will treat this as infectious. The patient was started on vancomycin and Zosyn for hospital associated pneumonia. We will perform a CT of the patient's chest as we are unable to perform a CTA of the patient's chest at this time due to patient's renal function. We will continue to hydrate the patient and likely repeat imaging as renal function improves. Qualifiers: Chronicity: acute Respiratory failure complication: unspecified whether with hypoxia or hypercapnia Qualified Code(s): J96.00 - Acute respiratory failure, unspecified whether with hypoxia or hypercapnia (2) Shock Current Visit: Yes Status: Acute The patient was noted to be hypotensive and subsequently received a right IJ CVC. The patient was started on norepinephrine. Blood pressures have stabilized this time. The patient was administered 2 L IV fluid upon arrival to the ICU. He has received a third here in the ICU. The patient's blood pressure is continued to remain stable. This is likely associated with infectious etiology. We are unable to rule out completely any bleeding around surgical site but given the well appearance of surgical sites and lack of bruising or rigidity of the abdomen, this is likely associated with infectious cause. We will continue to monitor the patient's hemoglobin is we have started the patient on a heparin drip for possible pulmonary embolus. In addition the patient will receive a CT of the chest abdomen and pelvis to determine if there is any obvious leaking. We will have to perform this noncontrast at this time due to patient's acute kidney injury. We will continue hydrating the patient. (3) Pleural effusion, left Current Visit: Yes Status: Acute (4) S/P aorto-bifemoral bypass surgery Current Visit: Yes Status: Acute (5) RUBY (acute kidney injury) Current Visit: Yes Status: Acute We will continue patient on IV hydration with likely resolution of patient's acute kidney injury. (6) Hypoglycemia Current Visit: Yes Status: Acute Patient was administered amp of D50. He was also placed on a D10 drip at 50 mL per hour with reassessment after 2 hours and likely de-escalation. We will continue to monitor the patient's blood glucose every 2 hours once it normalizes. This is likely secondary to patient's acute decline likely associated with sepsis. (7) Atrial fibrillation Current Visit: Yes Status: Chronic Qualifiers: Atrial fibrillation type: paroxysmal Qualified Code(s): I48.0 - Paroxysmal atrial fibrillation (8) CAD (coronary artery disease) Current Visit: Yes Status: Chronic Qualifiers: Coronary Disease-Associated Artery/Lesion type: [place] artery [place] vs. transplanted heart: [place] heart Associated angina: without angina Qualified Code(s): I25.10 - Atherosclerotic heart disease of [place] coronary artery without angina pectoris (9) Hyperlipidemia Current Visit: Yes Status: Chronic Qualifiers: Hyperlipidemia type: mixed hyperlipidemia Qualified Code(s): E78.2 - Mixed hyperlipidemia (10) Hypertension Current Visit: Yes Status: Chronic Qualifiers: Hypertension type: essential hypertension Qualified Code(s): I10 - Essential (primary) hypertension (11) Diabetes mellitus Current Visit: No Status: Chronic Qualifiers: Diabetes mellitus type: type 2 Diabetes mellitus complication status: with unspecified complications Diabetes mellitus bed bug exterminator insulin use: unspecified bed bug exterminator insulin use status Qualified Code(s): E11.8 - Type 2 diabetes mellitus with unspecified complications History of Present Illness Consult date: 06/08/17 Requesting physician: Joni Lora Reason for consult: dyspnea Chief complaint: Dyspnea, respiratory failure, hypotension History of present illness: 66-year-old male with history of diabetes, CAD, atrial fibrillation, peripheral vascular disease who arrives to [facility] for an elective aortobifemoral bypass due to associated worsening of peripheral vascular disease by vascular surgery. The patient is now postop day 1. He has been doing well on the floor with the exception of an acute worsening of his condition today. The patient became very short of breath and became tachypneic. The patient was subsequently placed on BiPAP. The patient continued to deteriorate and become hypotensive. He was given 2 L of normal saline fluid boluses and transported to the ICU for further care and workup. He was subsequently intubated and a central line was placed at bedside due to hypotension. The patient was noted to have a small left pleural effusion. Given the patient's region intubation and now respiratory failure we are concerned about infectious etiology with possible pneumonia. The patient was started on vancomycin and Zosyn. Blood cultures were drawn as well. The patient was placed on a norepinephrine drip. The patient was also noted to be hypoglycemic and upon arrival to the ICU his glucose was most recently 32. The patient was given D50 and started on a D10 drip at this time. The patient is currently sedated with fentanyl. Patient's renal function has continued to worsen so the patient will be started on a heparin drip with concern for possible PE given the patient's past history of DVT and immediate change in respiratory status. The patient's hemoglobin will be continued to be trended. A noncontrast CT of the chest, abdomen, pelvis will be obtained with any possible ideology or bleeding. The patient has no bruising noted in his abdomen that is worsening and no changes in his incision cote. This was noted also by vascular surgeon who evaluated the patient. His abdomen is soft at this time. Past Med Surg Social Fam HX - Past Medical History Source: old records reviewed Medical history: arthritis, atrial fibrillation, cancer, diabetes, hypertension Psychiatric history: anxiety, depression - Past Surgical History Surgical History: coronary bypass (CABG) - Social History Smoking Status: Current every day smoker Packs per day: 2 Smokeless Tobacco Status: No Alcohol use: occasionally Drug use: none ROS unobtainable: due to endotracheal tube All Systems: A 10-system review of systems was performed and is negative for pertinent findings except as documented above in the HPI. Physical Examination Vital Signs: Vital Signs, Last 4 Hours Temp Pulse Resp BP Pulse Ox 06/08/17 17:31 20 100 06/08/17 16:33 97.1 F L 110 36 158/129 87 06/08/17 16:24 98/42 06/08/17 15:59 97.2 F L 110 22 General appearance: other (Patient is currently intubated and sedated) Eyes: nonicteric ENT: oropharynx moist Effort: other (Patient is currently ventilated.) Auscultation: bilateral: other (Course breath sounds bilaterally without any overt wheezing, rales, rhonchi) Cardiovascular: other (Tachycardic and regular) Gastrointestinal: non-distended Integumentary: normal Extremities: no cyanosis, pulses normal unable to assess due to mental status Ventilator Settings Ventilator Settings: Ventilator Settings, Last 8 Hours Ventilator Mode A/C Ventilator Tidal Volume 500 Setting Ventilator Respiratory Rate 20 Setting Actual Respiratory Rate 20 Positive End Expiratory 8 Pressure Peak Inspiratory Airway 26 Pressure Results - Laboratory Findings CBC and BMP: 06/08/17 19:40 06/08/17 17:15 ABG ABG pH 7.23 pH Units (7.32-7.45) L 06/08/17 17:22 ABG pCO2 39 mmHg (35-45) 06/08/17 17:22 ABG pO2 201 mmHg (85-104) H D 06/08/17 17:22 ABG O2 Saturation 100 % (95-98) H 06/08/17 17:22 Abnormal lab findings: Abnormal lab results WBC 16.9 K/mcL (4.3-11.1) H 06/08/17 17:15 RBC 3.52 M/mcL (4.19-5.50) L 06/08/17 17:15 Hgb 11.2 g/dL (12.9-16.9) L D 06/08/17 17:15 Hct 35.1 % (37.5-50.1) L 06/08/17 17:15 Plt Count 105 K/mcL (140-400) L 06/08/17 17:15 Neutrophils # 21.8 K/mcL (1.6-8.9) H 06/08/17 03:26 Monocytes # 3.1 K/mcL (0.0-1.3) H 06/08/17 03:26 Reactive Lymphocytes Present (Not Present) A 06/08/17 03:26 Toxic Granulation Present (Not Present) A 06/08/17 03:26 ABG pH 7.23 pH Units (7.32-7.45) L 06/08/17 17:22 ABG pO2 201 mmHg (85-104) H D 06/08/17 17:22 ABG HCO3 16 mEq/L (21-27) L 06/08/17 17:22 ABG Total CO2 17 mEq/L (20-26) L 06/08/17 17:22 ABG O2 Saturation 100 % (95-98) H 06/08/17 17:22 ABG Base Excess -11 mEq/L (-2 to 3) L 06/08/17 17:22 ABG Hematocrit 37.0 % (37.5-50.1) L 06/07/17 12:07 Glucose 178 mg/dL (60-95) H 06/07/17 12:07 Chloride 112 mEq/L (98-107) H 06/08/17 17:15 Carbon Dioxide 20 mEq/L (23-29) L 06/08/17 17:15 BUN 33 mg/dL (8-23) H 06/08/17 17:15 Creatinine 2.25 mg/dL (0.70-1.30) H 06/08/17 17:15 Est GFR ( Amer) 36 (> 60) L 06/08/17 17:15 Est GFR (Non-Af Amer) 30 (> 60) L 06/08/17 17:15 Glucose 31 mg/dL (70-105) L* 06/08/17 17:15 POC Glucose 125 (58-89) H 06/08/17 10:16 Calcium 7.8 mg/dL (8.6-10.3) L 06/08/17 17:15 Phosphorus 6.1 mg/dL (2.7-4.5) H 06/08/17 17:15 AST 119 Units/L (13-39) H 06/08/17 17:15 Troponin I 0.04 ng/mL (< 0.04) H* 06/08/17 17:15 B-Natriuretic Peptide 346 pg/mL (Less than 100) H 06/08/17 17:15 Serum Total Protein 4.5 g/dL (6.4-8.9) L 06/08/17 17:15 Albumin 2.6 g/dL (3.5-5.7) L 06/08/17 17:15 Globulin 1.9 g/dL (2.4-3.5) L 06/08/17 17:15 - Clinical Findings Intake & Output: Intake & Output 06/08/17 06/08/17 06/08/17 07:59 15:59 23:59 Intake Total 0 / 0 0 / 0 Output Total 45 / 45 900 / 900 Balance -45 / -45 -900 / -900 Weight 71.6 kg - Attending Attestation I examined this patient and my medical decision-making was reviewed with the Resident Physician. I agree with the documented findings, disposition and treatment plan as described except to the extent set forth below. Sepsis Reassessment Note - Evaluation Sepsis Screen: No Definite Risk Current Stage of Sepsis: septic shock Possible Source of Sepsis: pulmonary - Focused Exam Date of Encounter: 06/08/17 Time of Encounter: 21:36 Vital Signs: Vital Signs Temp Pulse Resp BP Pulse Ox 06/08/17 17:31 20 100 06/08/17 16:33 97.1 F L 110 36 158/129 87 06/08/17 16:24 98/42 06/08/17 15:59 97.2 F L 110 22 06/08/17 11:18 97.4 F L 120 24 110/60 90 06/08/17 10:12 90 06/08/17 08:41 90 Respiratory Exam: Present: crackles Cardiovascular Exam: Present: tachycardia Capillary Refill: < 2 seconds Peripheral Pulse Strength: 2+ slightly diminished Peripheral Pulse Location: Radial Skin Exam: pale
[2017-06-08 19:15] LABS: INR 1.1; Prothrombin Time 11.4 Seconds (9.4-12.1)
[2017-06-08 19:18] LABS: Activated Partial Thrombo Time 62.9 Seconds (26.0-36.0)
[2017-06-08] MEDS ORDERED: *HR* Heparin 5,000 UNIT/ML VIAL IVP PRN ×2 (19:18)
[2017-06-08] MEDS ORDERED: 0.9 % Sodium Chloride 1,000 ML IVC ONE (19:18)
[2017-06-08] MEDS ORDERED: *HR* Heparin 5,000 UNIT/ML VIAL IVP ONE (19:18)
[2017-06-08] MEDS ORDERED: Heparin 25,000 UNIT/500 ML D5W 25,000 UNIT/500 ML BAG IVC SCH (19:30)
[2017-06-08 19:44] LABS: Hematocrit 36.7 % (37.5-50.1); Hemoglobin 11.7 g/dL (12.9-16.9); Mean Corpuscular HGB Conc 31.9 g/dL (31.6-35.5); Mean Corpuscular Hemoglobin 31.5 pg (28.0-33.3); Mean Corpuscular Volume 98.7 fL (83.0-100.0); Mean Platelet Volume 11.4 fL (9.4-12.4); Platelet Count 106 K/mcL (140-400); Red Blood Count 3.72 M/mcL (4.19-5.50); Red Cell Distribution Width 14.1 % (11.5-14.5)
[2017-06-08 19:45] LABS: Nucleated Red Blood Cells 0.2 /100 WBC (0)
[2017-06-08] MEDS: FentaNYL (PF) 1,000 MCG in 0.9 % Sodium Chloride 80 ML IVC SCH (19:54)
[2017-06-08 19:55] LABS: Bilirubin,Direct 0.2 mg/dL (0.0-0.2); Bilirubin,Indirect 0.3 mg/dL (0.0-1.2)
[2017-06-08] MEDS: *HR* Dextrose 50 % in Water (Syg) 50 ML SYRINGE IVP PRN (19:55)
[2017-06-08] MEDS: 0.9 % Sodium Chloride 1,000 ML IVC SCH ×2 (19:56→21:34)
[2017-06-08] MEDS: Dexmedetomidine HCl 400 MCG/100 ML MLS IVC SCH (20:13)
[2017-06-08] MEDS: Dextrose 50 % in Water (Vial) 50 ML in D5% in 0.2% NACL 500 ML IVC SCH (20:16)
[2017-06-08 20:23] LABS: ABG Base Excess -9 mEq/L (-2 to 3); ABG HCO3 19 mEq/L (21-27); ABG Oxygen Saturation 90 % (95-98); ABG PCO2 53 mmHg (35-45); ABG PH 7.17 pH Units (7.32-7.45); ABG PO2 75 mmHg (85-104); ABG TCO2 21 mEq/L (20-26); Blood Gas Modality ASSIST CONTROL; Blood Gas Respiration Rate 20; Blood Gas VT 500 cc
[2017-06-08 20:25] LABS: Lymphocytes # 3.1 K/mcL (0.6-4.6); Monocytes # 1.4 K/mcL (0.0-1.3); Neutrophils # 12.7 K/mcL (1.6-8.9); Reactive Lymphocytes Present (Not Present); Smudge Cells Present (Not Present)
[2017-06-08 20:26] LABS: Toxic Granulation Present (Not Present)
[2017-06-08 20:27] LABS: Platelet Estimate Slight Decrease (Normal)
[2017-06-08] MEDS: Pantoprazole 40 MG VIAL IVP SCH (21:32)
[2017-06-08] MEDS: Chlorhexidine Rinse 15 ML MOUTHWASH MM SCH (21:33)
[2017-06-08] MEDS: Piperacillin/Tazobactam 3.375 GM/200 ML BAG IVPB SCH (21:33)
[2017-06-08] MEDS: Lacri-Lube 3.5 GM TUBE BOTH EYES SCH ×2 (21:33→22:44)
[2017-06-08] MEDS: Vancomycin 1,000 MG in D5% in Water 250 ML IVPB SCH (21:33)
[2017-06-08 21:53] LABS: ABG Base Excess -8 mEq/L (-2 to 3); ABG HCO3 20 mEq/L (21-27); ABG Oxygen Saturation 84 % (95-98); ABG PCO2 47 mmHg (35-45); ABG PH 7.22 pH Units (7.32-7.45); ABG PO2 58 mmHg (85-104); ABG TCO2 21 mEq/L (20-26); Blood Gas Modality ASSIST CONTROL; Blood Gas Respiration Rate 26; Blood Gas VT 500 cc
[2017-06-08] MEDS: Ipratropium/Albuterol Neb 3 ML IH SCH (21:58)
[2017-06-08] MEDS ORDERED: Vasopressin 40 UNIT in D5% in Water 100 ML IV SCH (22:15)
[2017-06-08 22:23] LABS: Thyroid Stimulating Hormone 16.394 mcIU/mL (0.340-5.600)
[2017-06-08] MEDS ORDERED: Phenylephrine 10 MG in D5% in Water 250 ML IVC SCH (23:45)
[2017-06-08] MEDS: *HR* Midazolam HCl 2 MG/2 ML VIAL IVP PRN (23:56)
[2017-06-09 01:32] LABS: Hemoglobin 11.2 g/dL (12.9-16.9)
[2017-06-09] MEDS: *HR* Metoprolol 5 MG/5 ML VIAL IVP SCH ×4 (01:42→18:33)
[2017-06-09] MEDS: Norepinephrine 4 MG in D5% in Water 250 ML IVC SCH (01:50)
[2017-06-09] MEDS: FentaNYL (PF) 1,000 MCG in 0.9 % Sodium Chloride 80 ML IVC SCH ×5 (02:25→23:21)
[2017-06-09] MEDS ORDERED: 0.9 % Sodium Chloride 1,000 ML IVC ONE (02:41)
[2017-06-09 02:46] LABS: Mean Corpuscular Volume 100.6 fL (83.0-100.0); Red Cell Distribution Width 14.1 % (11.5-14.5)
[2017-06-09 02:48] LABS: Hematocrit 35.4 % (37.5-50.1); Hemoglobin 11.1 g/dL (12.9-16.9); Immature Platelets 12.9 % (1.1-6.1); Mean Corpuscular HGB Conc 31.4 g/dL (31.6-35.5); Mean Corpuscular Hemoglobin 31.5 pg (28.0-33.3); Mean Platelet Volume 12.3 fL (9.4-12.4); Nucleated Red Blood Cells 0.5 /100 WBC (0); Red Blood Count 3.52 M/mcL (4.19-5.50)
[2017-06-09 02:52] LABS: Platelet Count 75 K/mcL (140-400)
[2017-06-09] MEDS: Lacri-Lube 3.5 GM TUBE BOTH EYES SCH ×5 (02:57→20:39)
[2017-06-09 03:11] LABS: Potassium 5.8 mEq/L (3.5-5.1)
[2017-06-09] MEDS: Ipratropium/Albuterol Neb 3 ML IH SCH ×4 (03:15→21:23)
[2017-06-09] MEDS ORDERED: Phenylephrine 20 MG in D5% in Water 500 ML IVC SCH (03:15)
[2017-06-09] MEDS: Dexmedetomidine HCl 400 MCG/100 ML MLS IVC SCH ×4 (03:27→23:00)
[2017-06-09] MEDS: Piperacillin/Tazobactam 3.375 GM/200 ML BAG IVPB SCH (03:27)
[2017-06-09] MEDS: Norepinephrine 8 MG in D5% in Water 500 ML IVC SCH ×4 (03:39→18:19)
[2017-06-09] MEDS ORDERED: 0.9 % Sodium Chloride 500 ML ONE ×4 (03:40→13:26)
[2017-06-09 03:41] LABS: Lymphocytes # 2.6 K/mcL (0.6-4.6); Monocytes # 0.5 K/mcL (0.0-1.3); Neutrophils # 5.2 K/mcL (1.6-8.9)
[2017-06-09 03:42] LABS: Large Platelets Present (Not Present); Platelet Estimate Decreased (Normal); Reactive Lymphocytes Present (Not Present); Toxic Granulation Present (Not Present)
[2017-06-09] MEDS ORDERED: Albuterol 2.5 MG/3 ML NEBULIZER IH ONE (04:03)
--- NOTE | 2017-06-09 04:09 | Procedure Note ---
Date of procedure: 06/09/17 Pre-op diagnosis: Hypotension Post-op diagnosis: same Procedure: An arterial line was placed due to inconsistencies with blood pressures and the patient is currently on 3 vasopressors. The patient was placed in the correct position. He was cleaned and draped in the normal fashion. The patient was identified for the correct procedure. The patient had the right radial artery visualized by ultrasound. The catheter was placed under ultrasound guidance. The blood was withdrawn and the guidewire was placed. The catheter was placed over the guidewire without difficulty. Immediate arterial blood return occurred. The catheter was visualize in the artery by ultrasound and confirmed by the arterial pulses noted on monitor. Patient tolerated procedure well with less than 5 mL of blood loss. Anesthesia: none Was there an sales service assistant present: No Estimated blood loss (cc): 5 Specimen: None Pathology: none sent Condition: critical Disposition: ICU
[2017-06-09 04:15] LABS: INR 1.5; Prothrombin Time 16.2 Seconds (9.4-12.1)
[2017-06-09 04:18] LABS: Activated Partial Thrombo Time 46.2 Seconds (26.0-36.0)
[2017-06-09 04:54] LABS: ABG Base Excess -10 mEq/L (-2 to 3); ABG HCO3 19 mEq/L (21-27); ABG Oxygen Saturation 75 % (95-98); ABG PCO2 54 mmHg (35-45); ABG PH 7.15 pH Units (7.32-7.45); ABG PO2 52 mmHg (85-104); ABG TCO2 20 mEq/L (20-26); Blood Gas Modality ASSIST CONTROL; Blood Gas PEEP 10 cm H2O; Blood Gas Respiration Rate 28; Blood Gas VT 480 cc
[2017-06-09] MEDS: Albumin 25% 25gram/100mL 25 GM/100 ML IV.SOLN IVC SCH ×4 (05:24→06:22)
[2017-06-09] MEDS: Hydrocortisone Sodium Succ 100 MG/2 ML VIAL IVP SCH ×3 (05:46→20:40)
[2017-06-09] MEDS: EPINEPHrine 1 MG in D5% in Water 250 ML IVC SCH ×3 (05:50→09:55)
[2017-06-09] MEDS: Atracurium 250 MG in 0.9 % Sodium Chloride 225 ML IVC SCH ×2 (05:57→16:52)
[2017-06-09] MEDS ORDERED: *HR* Heparin 5,000 UNIT/ML VIAL SQ SCH (06:00)
[2017-06-09] MEDS: Meropenem 1,000 MG in Water for inj. (sterile) 10 ML IVP SCH ×2 (06:01→18:53)
[2017-06-09 06:22] LABS: Potassium 4.7 mEq/L (3.5-5.1)
[2017-06-09 07:00] LABS: ABG Base Excess -11 mEq/L (-2 to 3); ABG HCO3 18 mEq/L (21-27); ABG Oxygen Saturation 100 % (95-98); ABG PCO2 51 mmHg (35-45); ABG PH 7.15 pH Units (7.32-7.45); ABG PO2 326 mmHg (85-104); ABG TCO2 19 mEq/L (20-26); Blood Gas Modality ASSIST CONTROL; Blood Gas PEEP 10 cm H2O; Blood Gas Respiration Rate 28; Blood Gas VT 480 cc
--- NOTE | 2017-06-09 07:01 | Pulmonology Progress Note ---
<Zach Terry - Last Filed: 06/09/17 07:01> Date of Encounter: 06/09/17 Time of Encounter: 07:01 Objective PUL Vital signs: Last Vital Signs Temp 98.2 F 06/09/17 02:50 Pulse 120 06/09/17 06:24 Resp 28 06/09/17 06:24 BP 82/63 06/09/17 06:24 Pulse Ox 100 06/09/17 06:24 Ventilator Settings Ventilator Settings: Ventilator Settings, Last 8 Hours Ventilator Mode A/C Ventilator Mode A/C Ventilator Mode A/C Ventilator Mode A/C Ventilator Mode A/C Ventilator Mode A/C Ventilator Mode A/C Ventilator Mode A/C Ventilator Mode A/C Ventilator Mode A/C Ventilator Mode A/C Ventilator Mode A/C Ventilator Tidal Volume 480 Setting Ventilator Tidal Volume 480 Setting Ventilator Tidal Volume 480 Setting Ventilator Tidal Volume 480 Setting Ventilator Tidal Volume 480 Setting Ventilator Tidal Volume 480 Setting Ventilator Tidal Volume 480 Setting Ventilator Tidal Volume 480 Setting Ventilator Tidal Volume 480 Setting Ventilator Tidal Volume 480 Setting Ventilator Tidal Volume 480 Setting Ventilator Tidal Volume 480 Setting Ventilator Respiratory Rate 28 Setting Ventilator Respiratory Rate 28 Setting Ventilator Respiratory Rate 28 Setting Ventilator Respiratory Rate 28 Setting Ventilator Respiratory Rate 28 Setting Ventilator Respiratory Rate 28 Setting Ventilator Respiratory Rate 28 Setting Ventilator Respiratory Rate 28 Setting Ventilator Respiratory Rate 28 Setting Ventilator Respiratory Rate 28 Setting Ventilator Respiratory Rate 28 Setting Ventilator Respiratory Rate 28 Setting Actual Respiratory Rate 28 Actual Respiratory Rate 28 Actual Respiratory Rate 28 Actual Respiratory Rate 28 Actual Respiratory Rate 28 Actual Respiratory Rate 28 Actual Respiratory Rate 30 Actual Respiratory Rate 30 Actual Respiratory Rate 28 Actual Respiratory Rate 28 Actual Respiratory Rate 28 Positive End Expiratory 10 Pressure Positive End Expiratory 10 Pressure Positive End Expiratory 10 Pressure Positive End Expiratory 10 Pressure Positive End Expiratory 10 Pressure Positive End Expiratory 10 Pressure Positive End Expiratory 10 Pressure Positive End Expiratory 10 Pressure Positive End Expiratory 10 Pressure Positive End Expiratory 10 Pressure Positive End Expiratory 10 Pressure Positive End Expiratory 10 Pressure Peak Inspiratory Airway 38 Pressure Peak Inspiratory Airway 38 Pressure Peak Inspiratory Airway 38 Pressure Peak Inspiratory Airway 32 Pressure Peak Inspiratory Airway 34 Pressure Peak Inspiratory Airway 32 Pressure Peak Inspiratory Airway 32 Pressure Peak Inspiratory Airway 32 Pressure Peak Inspiratory Airway 32 Pressure Peak Inspiratory Airway 32 Pressure Peak Inspiratory Airway 32 Pressure Results - Laboratory Findings CBC and BMP: 06/09/17 02:30 06/09/17 05:49 ABG ABG pH 7.15 pH Units (7.32-7.45) L* 06/09/17 06:55 ABG pCO2 51 mmHg (35-45) H 06/09/17 06:55 ABG pO2 326 mmHg (85-104) H D 06/09/17 06:55 ABG O2 Saturation 100 % (95-98) H 06/09/17 06:55 PT/INR, D-dimer PT 16.2 Seconds (9.4-12.1) H 06/09/17 04:00 Abnormal lab findings: Abnormal lab results RBC 3.52 M/mcL (4.19-5.50) L 06/09/17 02:30 Hgb 11.1 g/dL (12.9-16.9) L 06/09/17 02:30 Hct 35.4 % (37.5-50.1) L 06/09/17 02:30 MCV 100.6 fL (83.0-100.0) H 06/09/17 02:30 MCHC 31.4 g/dL (31.6-35.5) L 06/09/17 02:30 Plt Count 75 K/mcL (140-400) L 06/09/17 02:30 Band Neutrophils % 6.0 % (0-4) H 06/09/17 02:30 Metamyelocytes % 4.0 % (0) H 06/09/17 02:30 Nucleated RBCs/100 WBC 0.5 /100 WBC (0) H 06/09/17 02:30 Reactive Lymphocytes Present (Not Present) A 06/09/17 02:30 Smudge Cells Present (Not Present) A 06/08/17 19:40 Toxic Granulation Present (Not Present) A 06/09/17 02:30 Platelet Estimate Decreased (Normal) L 06/09/17 02:30 Large Platelets Present (Not Present) A 06/09/17 02:30 Immature Plt Fraction 12.9 % (1.1-6.1) H 06/09/17 02:30 PT 16.2 Seconds (9.4-12.1) H 06/09/17 04:00 APTT 46.2 Seconds (26.0-36.0) H 06/09/17 04:00 ABG pH 7.15 pH Units (7.32-7.45) L* 06/09/17 06:55 ABG pCO2 51 mmHg (35-45) H 06/09/17 06:55 ABG pO2 326 mmHg (85-104) H D 06/09/17 06:55 ABG HCO3 18 mEq/L (21-27) L 06/09/17 06:55 ABG Total CO2 19 mEq/L (20-26) L 06/09/17 06:55 ABG O2 Saturation 100 % (95-98) H 06/09/17 06:55 ABG Base Excess -11 mEq/L (-2 to 3) L 06/09/17 06:55 ABG Hematocrit 37.0 % (37.5-50.1) L 06/07/17 12:07 Glucose 178 mg/dL (60-95) H 06/07/17 12:07 Sodium 135 mEq/L (136-145) L 06/09/17 05:49 Chloride 108 mEq/L (98-107) H 06/09/17 05:49 Carbon Dioxide 18 mEq/L (23-29) L 06/09/17 05:49 BUN 38 mg/dL (8-23) H 06/09/17 05:49 Creatinine 2.59 mg/dL (0.70-1.30) H 06/09/17 05:49 Est GFR ( Amer) 30 (> 60) L 06/09/17 05:49 Est GFR (Non-Af Amer) 25 (> 60) L 06/09/17 05:49 Lactic Acid 3.3 mmol/L (0.5-2.2) H 06/09/17 05:49 Calcium 7.0 mg/dL (8.6-10.3) L 06/09/17 05:49 Phosphorus 6.1 mg/dL (2.7-4.5) H 06/08/17 17:15 AST 119 Units/L (13-39) H 06/08/17 17:15 Troponin I 0.19 ng/mL (< 0.04) H* 06/09/17 05:49 B-Natriuretic Peptide 346 pg/mL (Less than 100) H 06/08/17 17:15 Serum Total Protein 4.5 g/dL (6.4-8.9) L 06/08/17 17:15 Albumin 2.6 g/dL (3.5-5.7) L 06/08/17 17:15 Globulin 1.9 g/dL (2.4-3.5) L 06/08/17 17:15 TSH 16.394 mcIU/mL (0.340-5.600) H 06/08/17 17:15 - Clinical Findings Intake & Output: Intake & Output 06/08/17 06/08/17 06/09/17 15:59 23:59 07:59 Intake Total 0 / 0 2504 / 2504 964 / 964 Output Total 900 / 900 0 / 0 30 / 30 Balance -900 / -900 2504 / 2504 934 / 934 - VTE Documentation of Mechanical Device: Intermittent pneumatic compression device Consult Discharge Plan - Plan Referrals: Joni Lora MD [Partnered Physician] - 07/17/17 2:20 pm Arti Thacker MD [Primary Care Provider] - 06/15/17 11:00 am <Otto Salas - Last Filed: 06/09/17 12:18> Date of Encounter: 06/09/17 Objective PUL Vital signs: Last Vital Signs Temp 98.6 F 06/09/17 08:46 Pulse 104 06/09/17 09:19 Resp 32 06/09/17 11:14 BP 86/54 06/09/17 11:14 Pulse Ox 100 06/09/17 11:14 Ventilator Settings Ventilator Settings: Ventilator Settings, Last 8 Hours Ventilator Mode A/C Ventilator Mode A/C Ventilator Mode A/C Ventilator Mode A/C Ventilator Mode A/C Ventilator Mode A/C Ventilator Mode A/C Ventilator Mode A/C Ventilator Mode A/C Ventilator Mode A/C Ventilator Mode A/C Ventilator Mode A/C Ventilator Mode A/C Ventilator Mode A/C Ventilator Tidal Volume 450 Setting Ventilator Tidal Volume 450 Setting Ventilator Tidal Volume 480 Setting Ventilator Tidal Volume 480 Setting Ventilator Tidal Volume 480 Setting Ventilator Tidal Volume 480 Setting Ventilator Tidal Volume 450 Setting Ventilator Tidal Volume 450 Setting Ventilator Tidal Volume 480 Setting Ventilator Tidal Volume 480 Setting Ventilator Tidal Volume 480 Setting Ventilator Tidal Volume 480 Setting Ventilator Tidal Volume 480 Setting Ventilator Tidal Volume 480 Setting Ventilator Respiratory Rate 32 Setting Ventilator Respiratory Rate 32 Setting Ventilator Respiratory Rate 32 Setting Ventilator Respiratory Rate 32 Setting Ventilator Respiratory Rate 32 Setting Ventilator Respiratory Rate 32 Setting Ventilator Respiratory Rate 32 Setting Ventilator Respiratory Rate 32 Setting Ventilator Respiratory Rate 28 Setting Ventilator Respiratory Rate 28 Setting Ventilator Respiratory Rate 28 Setting Ventilator Respiratory Rate 28 Setting Ventilator Respiratory Rate 28 Setting Ventilator Respiratory Rate 28 Setting Actual Respiratory Rate 32 Actual Respiratory Rate 32 Actual Respiratory Rate 32 Actual Respiratory Rate 32 Actual Respiratory Rate 32 Actual Respiratory Rate 32 Actual Respiratory Rate 28 Actual Respiratory Rate 28 Actual Respiratory Rate 28 Actual Respiratory Rate 28 Positive End Expiratory 12 Pressure Positive End Expiratory 12 Pressure Positive End Expiratory 12 Pressure Positive End Expiratory 12 Pressure Positive End Expiratory 12 Pressure Positive End Expiratory 12 Pressure Positive End Expiratory 12 Pressure Positive End Expiratory 12 Pressure Positive End Expiratory 10 Pressure Positive End Expiratory 10 Pressure Positive End Expiratory 10 Pressure Positive End Expiratory 10 Pressure Positive End Expiratory 10 Pressure Positive End Expiratory 10 Pressure Peak Inspiratory Airway 40 Pressure Peak Inspiratory Airway 40 Pressure Peak Inspiratory Airway 40 Pressure Peak Inspiratory Airway 40 Pressure Peak Inspiratory Airway 40 Pressure Peak Inspiratory Airway 39 Pressure Peak Inspiratory Airway 38 Pressure Peak Inspiratory Airway 38 Pressure Peak Inspiratory Airway 38 Pressure Peak Inspiratory Airway 38 Pressure Results - Laboratory Findings CBC and BMP: 06/09/17 11:20 06/09/17 11:20 ABG ABG pH 7.12 pH Units (7.32-7.45) L* 06/09/17 10:26 ABG pCO2 50 mmHg (35-45) H 06/09/17 10:26 ABG pO2 92 mmHg (85-104) D 06/09/17 10:26 ABG O2 Saturation 94 % (95-98) L 06/09/17 10:26 PT/INR, D-dimer PT 16.2 Seconds (9.4-12.1) H 06/09/17 04:00 Abnormal lab findings: Abnormal lab results RBC 2.18 M/mcL (4.19-5.50) L 06/09/17 11:20 Hgb 7.0 g/dL (12.9-16.9) L D 06/09/17 11:20 Hct 22.1 % (37.5-50.1) L 06/09/17 11:20 MCV 101.4 fL (83.0-100.0) H 06/09/17 11:20 Plt Count 35 K/mcL (140-400) L D 06/09/17 11:20 MPV 13.4 fL (9.4-12.4) H 06/09/17 11:20 Band Neutrophils % 20.0 % (0-4) H 06/09/17 11:20 Metamyelocytes % 6.0 % (0) H 06/09/17 11:20 Myelocytes % 30.0 % (0) H 06/09/17 11:20 Nucleated RBCs/100 WBC 1.2 /100 WBC (0) H 06/09/17 11:20 Reactive Lymphocytes Present (Not Present) A 06/09/17 11:20 Smudge Cells Present (Not Present) A 06/08/17 19:40 Toxic Granulation Present (Not Present) A 06/09/17 11:20 Toxic Vacuolation Present (Not Present) A 06/09/17 11:20 Dohle Bodies Present (Not Present) A 06/09/17 11:20 Platelet Estimate Decreased (Normal) L 06/09/17 02:30 Large Platelets Present (Not Present) A 06/09/17 02:30 Immature Plt Fraction 19.7 % (1.1-6.1) H 06/09/17 11:20 Polychromasia 1+ (Not Present) A 06/09/17 11:20 Basophilic Stippling 1+ (Not Present) A 06/09/17 11:20 Rajni Cells 1+ (Not Present) A 06/09/17 11:20 PT 16.2 Seconds (9.4-12.1) H 06/09/17 04:00 APTT 46.2 Seconds (26.0-36.0) H 06/09/17 04:00 ABG pH 7.12 pH Units (7.32-7.45) L* 06/09/17 10:26 ABG pCO2 50 mmHg (35-45) H 06/09/17 10:26 ABG HCO3 16 mEq/L (21-27) L 06/09/17 10:26 ABG Total CO2 18 mEq/L (20-26) L 06/09/17 10:26 ABG O2 Saturation 94 % (95-98) L 06/09/17 10:26 ABG Base Excess -12 mEq/L (-2 to 3) L 06/09/17 10:26 ABG Hematocrit 37.0 % (37.5-50.1) L 06/07/17 12:07 Glucose 178 mg/dL (60-95) H 06/07/17 12:07 Sodium 130 mEq/L (136-145) L 06/09/17 11:20 Carbon Dioxide 18 mEq/L (23-29) L 06/09/17 11:20 BUN 39 mg/dL (8-23) H 06/09/17 11:20 Creatinine 2.73 mg/dL (0.70-1.30) H 06/09/17 11:20 Est GFR ( Amer) 29 (> 60) L 06/09/17 11:20 Est GFR (Non-Af Amer) 24 (> 60) L 06/09/17 11:20 Glucose 122 mg/dL (70-105) H 06/09/17 11:20 Lactic Acid 5.4 mmol/L (0.5-2.2) H* 06/09/17 11:20 Calcium 6.9 mg/dL (8.6-10.3) L 06/09/17 11:20 Venous Ioniz Calcium 1.01 mmol/L (1.15-1.35) L 06/09/17 11:49 Phosphorus 6.1 mg/dL (2.7-4.5) H 06/09/17 11:20 Direct Bilirubin 0.3 mg/dL (0.0-0.2) H 06/09/17 11:20 AST 672 Units/L (13-39) H 06/09/17 11:20 ALT 102 Units/L (7-52) H 06/09/17 11:20 Alkaline Phosphatase 26 Units/L (34-104) L 06/09/17 11:20 Creatine Kinase 1228 Units/L (30-223) H 06/09/17 05:49 Troponin I 0.19 ng/mL (< 0.04) H* 06/09/17 05:49 B-Natriuretic Peptide 346 pg/mL (Less than 100) H 06/08/17 17:15 Serum Total Protein 4.0 g/dL (6.4-8.9) L 06/09/17 11:20 Albumin 3.1 g/dL (3.5-5.7) L 06/09/17 11:20 Globulin 0.9 g/dL (2.4-3.5) L 06/09/17 11:20 Albumin/Globulin Ratio 3.4 (1.1-2.2) H 06/09/17 11:20 TSH 16.394 mcIU/mL (0.340-5.600) H 06/08/17 17:15 - Clinical Findings Intake & Output: Intake & Output 06/08/17 06/09/17 06/09/17 23:59 07:59 15:59 Intake Total 2504 / 2504 964 / 964 5480 / 5480 Output Total 0 / 0 Balance 2504 / 2504 934 / 934 5480 / 5480 - Attending Attestation This note was written erroneously see the other progress note from today
--- NOTE | 2017-06-09 07:03 | Procedure Note ---
<Alex Duff - Last Filed: 06/09/17 07:00> Date of procedure: 06/09/17 Pre-op diagnosis: Acute Renal Failure Post-op diagnosis: same Procedure: [place] had placement of [place] line for HD. The patient was positioned, cleaned, and draped in the normal fashion. The patient had his left internal jugular vein visualized on ultrasound. At that time the needle was passed and guidewire were placed and visualized within the left internal jugular vein on ultrasound. The skin was dilated and the catheter was passed. All 3 catheters were flushed and were able to draw blood. Catheter was sutured in place using normal fashion. Sterile dressing placed and dated by nursing staff. Chest x- ray was taken for placement. Patient tolerated procedure well. Was there an licensed nursing assistant present: Yes Hospice Case Manager: Otto Salas Estimated blood loss (cc): 2 Specimen: None Pathology: none sent Condition: critical Disposition: ICU <Otto Salas - Last Filed: 06/09/17 12:16> - Attending Attestation I agree with the procedure as outlined by the resident physician above. I supervised the resident physician in this procedure and was available for the trinh and critical parts of this procedure.
--- NOTE | 2017-06-09 07:22 | Pulmonology Progress Note ---
<Zach Terry - Last Filed: 06/09/17 11:43> Date of Encounter: 06/09/17 Time of Encounter: 09:22 Assessment and Plan (1) Acute respiratory failure Current Visit: Yes Status: Acute CTA chest and a straight small bilateral pleural effusions with patchy airspace disease in the lower lobes suggesting possible pneumonia Ventilator support at 32, 450, 80, 14 Sedation regimen: Precedex, fentanyl, and Versed. Paralyzed with Atracurium ABG this morning shows pH 7.22, PCO2 51, PO2 37 and HCO3 21 Repeat ABG demonstrates pH of 7.12, PCO2 50, PO2 92, HCO3 16 Continuing bicarbonate infusion at this time We will continue ventilator support at this time and monitor for possible progression to ARDS IV antibiotics with vancomycin and meropenem Patient remains high-risk and we will monitor closely throughout the day. Discussion with family present and will change his CODE STATUS to DNR CCA at this time. Aggressive intervention will continue per family wishes. Qualifiers: Respiratory failure complication: hypoxia Qualified Code(s): J96.01 - Acute respiratory failure with hypoxia (2) Shock Current Visit: Yes Status: Acute Vasodilatory shock likely secondary to sepsis Echocardiogram was performed this morning results pending We will continue pressure support: - Levophed - maxed - Vasopressin - maxed - Epinephrine - maxed - Taj - down to 140 Receiving 4 bags of albumin Lactic acid trending down to 3.3 today Discontinue D10 Continuing bicarbonate infusion for now and will consider Becka this afternoon Continue vancomycin and meropenem Solu Cortef 100 mg every 8 hours Blood cultures pending Patient is high risk continue to monitor closely throughout the day. (3) Anemia Current Visit: Yes Status: Acute Hgb dropped to 11.1 to 7 Possible dilutional vs acute hemorrhage Ordered 2 units of PRBCs and ordered complete Abd US Will continue to follow Qualifiers: Anemia type: unspecified type Qualified Code(s): D64.9 - Anemia, unspecified (4) S/P aorto-bifemoral bypass surgery Current Visit: Yes Status: Acute Vascular surgery following (5) RUBY (acute kidney injury) Current Visit: Yes Status: Acute RUBY worsening with 2.25-2.59 Minimal urine production over the last 24 hours Considering Becka therapy this afternoon Pending renal ultrasound (6) Hypertension Current Visit: Yes Status: Chronic Qualifiers: Hypertension type: essential hypertension Qualified Code(s): I10 - Essential (primary) hypertension (7) Atrial fibrillation Current Visit: Yes Status: Chronic History of paroxysmal atrial fibrillation that now in a flutter on 12 lead Starting Amio bolus with drip Qualifiers: Atrial fibrillation type: paroxysmal Qualified Code(s): I48.0 - Paroxysmal atrial fibrillation (8) CAD (coronary artery disease) Current Visit: Yes Status: Chronic Qualifiers: Coronary Disease-Associated Artery/Lesion type: [place] artery [place] vs. transplanted heart: [place] heart Associated angina: without angina Qualified Code(s): I25.10 - Atherosclerotic heart disease of [place] coronary artery without angina pectoris (9) Hyperlipidemia Current Visit: Yes Status: Chronic Qualifiers: Hyperlipidemia type: mixed hyperlipidemia Qualified Code(s): E78.2 - Mixed hyperlipidemia (10) Pleural effusion, left Current Visit: Yes Status: Acute (11) Diabetes mellitus Current Visit: No Status: Chronic No evidence of home medication. 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 Qualified Code(s): E11.8 - Type 2 diabetes mellitus with unspecified complications (12) DVT prophylaxis Current Visit: Yes Status: Acute Heparin subcutaneous 5000 units every 12 hours Subjective Interval history: Patient is admitted for acute respiratory failure secondary to pneumonia, metabolic encephalopathy and vasodilatory shock secondary to sepsis Patient appears comfortable lying in bed this morning Worsening blood pressure throughout the night He is currently on four pressors Arterial line in place with central line and temporary dialysis catheter Family came into the room this morning and decided to change his CODE STATUS to DNR CCA Objective PUL Vital signs: Last Vital Signs Temp 98.2 F 06/09/17 02:50 Pulse 124 06/09/17 07:00 Resp 28 06/09/17 07:00 BP 70/56 06/09/17 07:00 Pulse Ox 100 06/09/17 07:00 General appearance: no acute distress Eyes: nonicteric ENT: oropharynx moist Effort: normal Auscultation: bilateral: diminished breath sounds Cardiovascular: irregular rhythm (Sinus tach) Gastrointestinal: normoactive bowel sounds, non-distended Integumentary: normal Extremities: no cyanosis, no edema, no clubbing, pulses normal (Faint on Doppler bilaterally in dorsalis pedis) Musculoskeletal: no deformities unable to assess due to mental status Ventilator Settings Ventilator Settings: Ventilator Settings, Last 8 Hours Ventilator Mode A/C Ventilator Mode A/C Ventilator Mode A/C Ventilator Mode A/C Ventilator Mode A/C Ventilator Mode A/C Ventilator Mode A/C Ventilator Mode A/C Ventilator Mode A/C Ventilator Mode A/C Ventilator Mode A/C Ventilator Mode A/C Ventilator Mode A/C Ventilator Mode A/C Ventilator Tidal Volume 480 Setting Ventilator Tidal Volume 480 Setting Ventilator Tidal Volume 480 Setting Ventilator Tidal Volume 480 Setting Ventilator Tidal Volume 480 Setting Ventilator Tidal Volume 480 Setting Ventilator Tidal Volume 480 Setting Ventilator Tidal Volume 480 Setting Ventilator Tidal Volume 480 Setting Ventilator Tidal Volume 480 Setting Ventilator Tidal Volume 480 Setting Ventilator Tidal Volume 480 Setting Ventilator Tidal Volume 480 Setting Ventilator Tidal Volume 480 Setting Ventilator Respiratory Rate 28 Setting Ventilator Respiratory Rate 28 Setting Ventilator Respiratory Rate 28 Setting Ventilator Respiratory Rate 28 Setting Ventilator Respiratory Rate 28 Setting Ventilator Respiratory Rate 28 Setting Ventilator Respiratory Rate 28 Setting Ventilator Respiratory Rate 28 Setting Ventilator Respiratory Rate 28 Setting Ventilator Respiratory Rate 28 Setting Ventilator Respiratory Rate 28 Setting Ventilator Respiratory Rate 28 Setting Ventilator Respiratory Rate 28 Setting Ventilator Respiratory Rate 28 Setting Actual Respiratory Rate 28 Actual Respiratory Rate 28 Actual Respiratory Rate 28 Actual Respiratory Rate 28 Actual Respiratory Rate 28 Actual Respiratory Rate 28 Actual Respiratory Rate 28 Actual Respiratory Rate 30 Actual Respiratory Rate 30 Actual Respiratory Rate 28 Actual Respiratory Rate 28 Actual Respiratory Rate 28 Positive End Expiratory 10 Pressure Positive End Expiratory 10 Pressure Positive End Expiratory 10 Pressure Positive End Expiratory 10 Pressure Positive End Expiratory 10 Pressure Positive End Expiratory 10 Pressure Positive End Expiratory 10 Pressure Positive End Expiratory 10 Pressure Positive End Expiratory 10 Pressure Positive End Expiratory 10 Pressure Positive End Expiratory 10 Pressure Positive End Expiratory 10 Pressure Positive End Expiratory 10 Pressure Positive End Expiratory 10 Pressure Peak Inspiratory Airway 38 Pressure Peak Inspiratory Airway 38 Pressure Peak Inspiratory Airway 38 Pressure Peak Inspiratory Airway 38 Pressure Peak Inspiratory Airway 32 Pressure Peak Inspiratory Airway 34 Pressure Peak Inspiratory Airway 32 Pressure Peak Inspiratory Airway 32 Pressure Peak Inspiratory Airway 32 Pressure Peak Inspiratory Airway 32 Pressure Peak Inspiratory Airway 32 Pressure Peak Inspiratory Airway 32 Pressure Results - Laboratory Findings CBC and BMP: 06/09/17 02:30 06/09/17 05:49 ABG ABG pH 7.15 pH Units (7.32-7.45) L* 06/09/17 06:55 ABG pCO2 51 mmHg (35-45) H 06/09/17 06:55 ABG pO2 326 mmHg (85-104) H D 06/09/17 06:55 ABG O2 Saturation 100 % (95-98) H 06/09/17 06:55 PT/INR, D-dimer PT 16.2 Seconds (9.4-12.1) H 06/09/17 04:00 Abnormal lab findings: Abnormal lab results RBC 3.52 M/mcL (4.19-5.50) L 06/09/17 02:30 Hgb 11.1 g/dL (12.9-16.9) L 06/09/17 02:30 Hct 35.4 % (37.5-50.1) L 06/09/17 02:30 MCV 100.6 fL (83.0-100.0) H 06/09/17 02:30 MCHC 31.4 g/dL (31.6-35.5) L 06/09/17 02:30 Plt Count 75 K/mcL (140-400) L 06/09/17 02:30 Band Neutrophils % 6.0 % (0-4) H 06/09/17 02:30 Metamyelocytes % 4.0 % (0) H 06/09/17 02:30 Nucleated RBCs/100 WBC 0.5 /100 WBC (0) H 06/09/17 02:30 Reactive Lymphocytes Present (Not Present) A 06/09/17 02:30 Smudge Cells Present (Not Present) A 06/08/17 19:40 Toxic Granulation Present (Not Present) A 06/09/17 02:30 Platelet Estimate Decreased (Normal) L 06/09/17 02:30 Large Platelets Present (Not Present) A 06/09/17 02:30 Immature Plt Fraction 12.9 % (1.1-6.1) H 06/09/17 02:30 PT 16.2 Seconds (9.4-12.1) H 06/09/17 04:00 APTT 46.2 Seconds (26.0-36.0) H 06/09/17 04:00 ABG pH 7.15 pH Units (7.32-7.45) L* 06/09/17 06:55 ABG pCO2 51 mmHg (35-45) H 06/09/17 06:55 ABG pO2 326 mmHg (85-104) H D 06/09/17 06:55 ABG HCO3 18 mEq/L (21-27) L 06/09/17 06:55 ABG Total CO2 19 mEq/L (20-26) L 06/09/17 06:55 ABG O2 Saturation 100 % (95-98) H 06/09/17 06:55 ABG Base Excess -11 mEq/L (-2 to 3) L 06/09/17 06:55 ABG Hematocrit 37.0 % (37.5-50.1) L 06/07/17 12:07 Glucose 178 mg/dL (60-95) H 06/07/17 12:07 Sodium 135 mEq/L (136-145) L 06/09/17 05:49 Chloride 108 mEq/L (98-107) H 06/09/17 05:49 Carbon Dioxide 18 mEq/L (23-29) L 06/09/17 05:49 BUN 38 mg/dL (8-23) H 06/09/17 05:49 Creatinine 2.59 mg/dL (0.70-1.30) H 06/09/17 05:49 Est GFR ( Amer) 30 (> 60) L 06/09/17 05:49 Est GFR (Non-Af Amer) 25 (> 60) L 06/09/17 05:49 Lactic Acid 3.3 mmol/L (0.5-2.2) H 06/09/17 05:49 Calcium 7.0 mg/dL (8.6-10.3) L 06/09/17 05:49 Phosphorus 6.1 mg/dL (2.7-4.5) H 06/08/17 17:15 AST 119 Units/L (13-39) H 06/08/17 17:15 Troponin I 0.19 ng/mL (< 0.04) H* 06/09/17 05:49 B-Natriuretic Peptide 346 pg/mL (Less than 100) H 06/08/17 17:15 Serum Total Protein 4.5 g/dL (6.4-8.9) L 06/08/17 17:15 Albumin 2.6 g/dL (3.5-5.7) L 06/08/17 17:15 Globulin 1.9 g/dL (2.4-3.5) L 06/08/17 17:15 TSH 16.394 mcIU/mL (0.340-5.600) H 06/08/17 17:15 - Clinical Findings Intake & Output: Intake & Output 06/08/17 06/08/17 06/09/17 15:59 23:59 07:59 Intake Total 0 / 0 2504 / 2504 964 / 964 Output Total 900 / 900 0 / 0 30 / 30 Balance -900 / -900 2504 / 2504 934 / 934 - VTE Documentation of Mechanical Device: Intermittent pneumatic compression device Consult Discharge Plan - Plan Referrals: Joni Lora MD [Partnered Physician] - 07/17/17 2:20 pm Arti Thacker MD [Primary Care Provider] - 06/15/17 11:00 am <Otto Salas W - Last Filed: 06/09/17 11:45> Date of Encounter: 06/09/17 Objective PUL Vital signs: Last Vital Signs Temp 98.6 F 06/09/17 08:46 Pulse 104 06/09/17 09:19 Resp 32 06/09/17 09:19 BP 83/59 06/09/17 09:19 Pulse Ox 100 06/09/17 09:19 Ventilator Settings Ventilator Settings: Ventilator Settings, Last 8 Hours Ventilator Mode A/C Ventilator Mode A/C Ventilator Mode A/C Ventilator Mode A/C Ventilator Mode A/C Ventilator Mode A/C Ventilator Mode A/C Ventilator Mode A/C Ventilator Mode A/C Ventilator Mode A/C Ventilator Mode A/C Ventilator Mode A/C Ventilator Mode A/C Ventilator Mode A/C Ventilator Tidal Volume 480 Setting Ventilator Tidal Volume 480 Setting Ventilator Tidal Volume 480 Setting Ventilator Tidal Volume 450 Setting Ventilator Tidal Volume 480 Setting Ventilator Tidal Volume 480 Setting Ventilator Tidal Volume 480 Setting Ventilator Tidal Volume 480 Setting Ventilator Tidal Volume 480 Setting Ventilator Tidal Volume 480 Setting Ventilator Tidal Volume 480 Setting Ventilator Tidal Volume 480 Setting Ventilator Tidal Volume 480 Setting Ventilator Tidal Volume 480 Setting Ventilator Respiratory Rate 32 Setting Ventilator Respiratory Rate 32 Setting Ventilator Respiratory Rate 32 Setting Ventilator Respiratory Rate 32 Setting Ventilator Respiratory Rate 28 Setting Ventilator Respiratory Rate 28 Setting Ventilator Respiratory Rate 28 Setting Ventilator Respiratory Rate 28 Setting Ventilator Respiratory Rate 28 Setting Ventilator Respiratory Rate 28 Setting Ventilator Respiratory Rate 28 Setting Ventilator Respiratory Rate 28 Setting Ventilator Respiratory Rate 28 Setting Ventilator Respiratory Rate 28 Setting Actual Respiratory Rate 32 Actual Respiratory Rate 32 Actual Respiratory Rate 32 Actual Respiratory Rate 32 Actual Respiratory Rate 28 Actual Respiratory Rate 28 Actual Respiratory Rate 28 Actual Respiratory Rate 28 Actual Respiratory Rate 28 Actual Respiratory Rate 28 Actual Respiratory Rate 28 Actual Respiratory Rate 30 Positive End Expiratory 12 Pressure Positive End Expiratory 12 Pressure Positive End Expiratory 12 Pressure Positive End Expiratory 12 Pressure Positive End Expiratory 10 Pressure Positive End Expiratory 10 Pressure Positive End Expiratory 10 Pressure Positive End Expiratory 10 Pressure Positive End Expiratory 10 Pressure Positive End Expiratory 10 Pressure Positive End Expiratory 10 Pressure Positive End Expiratory 10 Pressure Positive End Expiratory 10 Pressure Positive End Expiratory 10 Pressure Peak Inspiratory Airway 40 Pressure Peak Inspiratory Airway 40 Pressure Peak Inspiratory Airway 40 Pressure Peak Inspiratory Airway 39 Pressure Peak Inspiratory Airway 38 Pressure Peak Inspiratory Airway 38 Pressure Peak Inspiratory Airway 38 Pressure Peak Inspiratory Airway 38 Pressure Peak Inspiratory Airway 32 Pressure Peak Inspiratory Airway 34 Pressure Peak Inspiratory Airway 32 Pressure Peak Inspiratory Airway 32 Pressure Results - Laboratory Findings CBC and BMP: 06/09/17 02:30 06/09/17 05:49 ABG ABG pH 7.22 pH Units (7.32-7.45) L 06/09/17 07:50 ABG pCO2 51 mmHg (35-45) H 06/09/17 07:50 ABG pO2 387 mmHg (85-104) H D 06/09/17 07:50 ABG O2 Saturation 100 % (95-98) H 06/09/17 07:50 PT/INR, D-dimer PT 16.2 Seconds (9.4-12.1) H 06/09/17 04:00 Abnormal lab findings: Abnormal lab results RBC 3.52 M/mcL (4.19-5.50) L 06/09/17 02:30 Hgb 11.1 g/dL (12.9-16.9) L 06/09/17 02:30 Hct 35.4 % (37.5-50.1) L 06/09/17 02:30 MCV 100.6 fL (83.0-100.0) H 06/09/17 02:30 MCHC 31.4 g/dL (31.6-35.5) L 06/09/17 02:30 Plt Count 75 K/mcL (140-400) L 06/09/17 02:30 Band Neutrophils % 6.0 % (0-4) H 06/09/17 02:30 Metamyelocytes % 4.0 % (0) H 06/09/17 02:30 Nucleated RBCs/100 WBC 0.5 /100 WBC (0) H 06/09/17 02:30 Reactive Lymphocytes Present (Not Present) A 06/09/17 02:30 Smudge Cells Present (Not Present) A 06/08/17 19:40 Toxic Granulation Present (Not Present) A 06/09/17 02:30 Platelet Estimate Decreased (Normal) L 06/09/17 02:30 Large Platelets Present (Not Present) A 06/09/17 02:30 Immature Plt Fraction 12.9 % (1.1-6.1) H 06/09/17 02:30 PT 16.2 Seconds (9.4-12.1) H 06/09/17 04:00 APTT 46.2 Seconds (26.0-36.0) H 06/09/17 04:00 ABG pH 7.22 pH Units (7.32-7.45) L 06/09/17 07:50 ABG pCO2 51 mmHg (35-45) H 06/09/17 07:50 ABG pO2 387 mmHg (85-104) H D 06/09/17 07:50 ABG O2 Saturation 100 % (95-98) H 06/09/17 07:50 ABG Base Excess -7 mEq/L (-2 to 3) L 06/09/17 07:50 ABG Hematocrit 37.0 % (37.5-50.1) L 06/07/17 12:07 Glucose 178 mg/dL (60-95) H 06/07/17 12:07 Sodium 135 mEq/L (136-145) L 06/09/17 05:49 Chloride 108 mEq/L (98-107) H 06/09/17 05:49 Carbon Dioxide 18 mEq/L (23-29) L 06/09/17 05:49 BUN 38 mg/dL (8-23) H 06/09/17 05:49 Creatinine 2.59 mg/dL (0.70-1.30) H 06/09/17 05:49 Est GFR ( Amer) 30 (> 60) L 06/09/17 05:49 Est GFR (Non-Af Amer) 25 (> 60) L 06/09/17 05:49 Lactic Acid 3.3 mmol/L (0.5-2.2) H 06/09/17 05:49 Calcium 7.0 mg/dL (8.6-10.3) L 06/09/17 05:49 Venous Ioniz Calcium 0.92 mmol/L (1.15-1.35) L 06/09/17 07:37 Phosphorus 7.2 mg/dL (2.7-4.5) H 06/09/17 05:49 Direct Bilirubin 0.3 mg/dL (0.0-0.2) H 06/09/17 05:49 AST 368 Units/L (13-39) H 06/09/17 05:49 ALT 70 Units/L (7-52) H 06/09/17 05:49 Creatine Kinase 1228 Units/L (30-223) H 06/09/17 05:49 Troponin I 0.19 ng/mL (< 0.04) H* 06/09/17 05:49 B-Natriuretic Peptide 346 pg/mL (Less than 100) H 06/08/17 17:15 Serum Total Protein 4.7 g/dL (6.4-8.9) L 06/09/17 05:49 Globulin 1.1 g/dL (2.4-3.5) L 06/09/17 05:49 Albumin/Globulin Ratio 3.3 (1.1-2.2) H 06/09/17 05:49 TSH 16.394 mcIU/mL (0.340-5.600) H 06/08/17 17:15 - Clinical Findings Intake & Output: Intake & Output 06/08/17 06/09/17 06/09/17 23:59 07:59 15:59 Intake Total 2504 / 2504 964 / 964 2409 / 2409 Output Total 0 / 0 30 / 30 Balance 2504 / 2504 934 / 934 2409 / 2409 - Attending Attestation I examined this patient and my medical decision-making was reviewed with the Resident Physician. I agree with the documented findings, disposition and treatment plan as described except to the extent set forth below. We independently had [id number] contact with the patient I spent 60min of Critical Care time with this patient. It involved decision making of high complexity to assess, manipulate, and support vital organ system failure and/or to prevent further life threatening deterioration of the patient' s condition. The time involved in the performance of separately reportable procedures was not counted toward critical care time. Patient seen and examined at bedside Labs, radiology, chart personally reviewed. Management was reviewed during multidisciplinary critical care rounds. 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 Plateau pressures less than 30. We have considered prone positioning for this patient however he is not a candidate because of refractory hypotension. It appears the etiology of this is postoperative pneumonia with progression to septic shock. I suspect patient has had aspiration event in the last 24 hours postoperatively Cards: Vasodilatory shock with evidence of multiorgan system failure. Patient is currently requiring 3 vasopressors at maximal doses to maintain map greater than 60. Troponin elevation which is likely demand ischemia he remains a flutter and will be loaded with amiodarone for rapid ventricular response. Echocardiogram pending official interpretation. Continue to trend lactate FEN-GI: Nothing by mouth for now GI prophylaxis given Renal: Anuric Acute kidney injury likely prerenal azotemia secondary to hypotension and sepsis with progression to ATN mild rhabdomyolysis persistent hyperkalemia which is been medically treated discuss case with nephrology and is planned for CRRT a temporary dialysis catheter has been inserted. He has severe metabolic acidemia which is a product of lactic acidosis and kidney injury on bicarbonate infusion. Continue to monitor his electrolytes. Bladder pressures have been measured and are within normal limits making abdominal compartment syndrome less likely ID: Septic shock secondary to pneumonia he is being covered with antimicrobials with planned to de-escalate broad-spectrum cultures have been obtained. Heme/Onc: DVT prophylaxis given H&H is stable. Platelets are down trending no overt evidence of hemorrhage. Patient has a right pelvic hematoma of unclear significance this was discussed with the vascular surgeon overnight per resident report Endo: Glucose Monitored has been persistently hypoglycemic which has been corrected with dextrose infusion. Stress dose steroids of been given for refractory septic shock Integ/MSK: Skin Care per routine ICU Nursing Protocol to prevent ulcers. Lines: All lines examined without evidence of infection : Dispo: Remain ICU for critical illness CODE DNAR I had a lengthy conversation with the patient's son (and next of kin) and immdiate family members nearly 10 adults, and explained that overall prognosis is very poor given degree of refractory shock and severity of metabolic acidemia. I explained that he is at high risk for cardiac arrest but performing chest compressions in this situation would be considered futile given the amount of vasopressor the patient is already on and would likely only provide suffering without clear benefit. After discussion with the family the patient's CODE STATUS was changed to reflect this conversation to DNAR with plan for full aggressive measures until that point The patient is unable or incompetent to participate in giving a history and/or making treatment decisions. The discussion was necessary for determining treatment decision. This discussion took place in the [ICU]. The total meeting time was [15min]
[2017-06-09] MEDS ORDERED: Vasopressin 40 UNIT in D5% in Water 100 ML IV SCH (07:30)
[2017-06-09 07:33] LABS: Albumin 3.6 g/dL (3.5-5.7); Bilirubin,Direct 0.3 mg/dL (0.0-0.2); Bilirubin,Indirect 0.3 mg/dL (0.0-1.2); Bilirubin,Total 0.6 mg/dL (0.3-1.0); Magnesium 1.9 mg/dL (1.6-2.6)
[2017-06-09 07:39] LABS: Albumin/Globulin Ratio 3.3 (1.1-2.2); Globulin 1.1 g/dL (2.4-3.5); Phosphorous 7.2 mg/dL (2.7-4.5); Total Protein 4.7 g/dL (6.4-8.9)
[2017-06-09 07:40] LABS: VBG Ionized Calcium 0.92 mmol/L (1.15-1.35)
[2017-06-09 07:55] LABS: ABG Base Excess -7 mEq/L (-2 to 3); ABG HCO3 21 mEq/L (21-27); ABG Oxygen Saturation 100 % (95-98); ABG PCO2 51 mmHg (35-45); ABG PH 7.22 pH Units (7.32-7.45); ABG PO2 387 mmHg (85-104); ABG TCO2 22 mEq/L (20-26); Blood Gas Modality ASSIST CONTROL; Blood Gas PEEP 12 cm H2O; Blood Gas Respiration Rate 32; Blood Gas VT 450 cc
[2017-06-09] MEDS: Phenylephrine 10 MG in D5% in Water 250 ML IVC SCH (08:30)
[2017-06-09] MEDS: Nicotine 21 MG PATCH.TD24 TD SCH (08:34)
[2017-06-09] MEDS: Levothyroxine Sodium 100 MCG VIAL IVP SCH (08:34)
[2017-06-09] MEDS: Chlorhexidine Rinse 15 ML MOUTHWASH MM SCH ×2 (08:34→20:39)
[2017-06-09] MEDS: Fluticasone Propionate Nasal 50 MCG/SPRAY BOTTLE NS SCH (08:34)
[2017-06-09] MEDS: Aspirin Enteric Coated 81 MG Tablet PO SCH (08:34)
[2017-06-09] MEDS: Pantoprazole 40 MG VIAL IVP SCH (08:36)
[2017-06-09] MEDS: Phenylephrine 20 MG in D5% in Water 500 ML IVC SCH ×3 (09:40→16:53)
[2017-06-09] MEDS: Sodium Bicarbonate 150 MEQ in D5% in Water 1,000 ML IVC SCH ×4 (09:41→23:14)
[2017-06-09 10:29] LABS: ABG Base Excess -12 mEq/L (-2 to 3); ABG HCO3 16 mEq/L (21-27); ABG Oxygen Saturation 94 % (95-98); ABG PCO2 50 mmHg (35-45); ABG PH 7.12 pH Units (7.32-7.45); ABG PO2 92 mmHg (85-104); ABG TCO2 18 mEq/L (20-26); Blood Gas Modality ASSIST CONTROL; Blood Gas PEEP 12 cm H2O; Blood Gas Respiration Rate 32; Blood Gas VT 450 cc
[2017-06-09] MEDS ORDERED: Amiodarone Premix 360 MG/200 ML BAG IVC ONE (11:03)
[2017-06-09] MEDS ORDERED: Amiodarone Premix 150 MG/100 ML BAG IVPB ONE (11:03)
--- NOTE | 2017-06-09 11:10 | Nephrology Consult Note ---
Date of Encounter: 06/09/17 Time of Encounter: 10:05 Assessment and Plan (1) RUBY (acute kidney injury) Current Visit: Yes Status: Acute RUBY/hyperkalemia in setting of respiratory failure, shock. Will start CVVH. Continue bicarb drip. Recommend stopping Vanco for less nephrotoxic coverage. Will obtain renal us to r/o obstructive uropathy. Continue to monitor. History of Present Illness - Reason for Consult Acute Kidney Injury - History of Present Illness Mr. Ramirez is a 66 year old male who is S/P aortobifemoral artery bypass on . Other PMH-HTN, Afib, CAD, HLD, tobacco abuse. On Jun 08 Mr Ramirez became hypoxic requiring BiPap and ultimately intubated and transferred to ICU. FIO2 .60, peep 12. On 4 pressors to maintain TCP11-87. Per nursing had 30 cc urine at 1999 last night and anuric since. Mr. Ramirez's renal fct prior to hospital stay was normal, Creat has gone from 1.25 yesterday to 2.59 today. Potassium of 5.8 medically treated, currently 4.7. Bicarb 18, on Bicarb drip. 1 + pitting edema. Noted Vanco coverage. Past Med Surg Social Fam HX - Past Medical History Medical history: arthritis, atrial fibrillation, cancer, diabetes, hypertension Psychiatric history: anxiety, depression - Past Surgical History Surgical History: coronary bypass (CABG) - Social History Smoking Status: Current every day smoker Packs per day: 2 Smokeless Tobacco Status: No Alcohol use: occasionally Drug use: none Medications and Allergies Aspirin Enteric Coated [Aspirin EC] 81 mg PO DAILY 11/24/15 [History] Cholecalciferol (D-3) [Vitamin D] 2,000 unit PO BID 11/24/15 [History] Fluticasone Propionate Nasal [Flonase] 1 spr NS DAILY 11/24/15 [History] Isosorbide MONOnitrate (24 HR) [Imdur] 30 mg PO DAILY 11/24/15 [History] Loratadine [Claritin] 10 mg PO DAILY 11/24/15 [History] Losartan [Cozaar] 25 mg PO DAILY 11/24/15 [History] Montelukast [Singulair] 10 mg PO HS 11/24/15 [History] Rivaroxaban [Xarelto] 20 mg PO DAILY 11/24/15 [History] Sotalol HCl [Betapace] 120 mg PO BID 11/24/15 [History] Zolpidem [Ambien] 10 mg PO HS PRN 11/24/15 [History] clonazePAM [Klonopin] 1 mg PO BID 11/24/15 [History] Docusate [Colace] 100 mg PO BID 06/07/17 [History] Levothyroxine [Synthroid] 100 mcg PO 0630 06/07/17 [History] Morphine Immed Rel [Morphine Sulfate] 15 mg PO Q8H PRN 06/07/17 [History] Omeprazole [PriLOSEC] 40 mg PO BID 06/07/17 [History] Ondansetron [Zofran] 8 mg PO Q8H PRN 06/07/17 [History] OxyCODONE/APAP 7.5/325 [Percocet 7.5/325 MG] 1 each PO Q6H PRN 06/07/17 [History ] Simvastatin [Zocor] 20 mg PO HS 06/07/17 [History] Venlafaxine HCl [Venlafaxine HCl ER] 225 mg PO DAILY 06/07/17 [History] 3 Allergy/AdvReac Type Severity Reaction Status Date / Time fentanyl AdvReac See Verified 06/07/17 07:41 Comments NSAIDS (Non-Steroidal AdvReac Nausea Verified 06/07/17 07:41 Anti-Inflamma Review of Systems ROS unobtainable: due to endotracheal tube Exam - Vital Signs Vital signs: Initial Vital Signs Temp Pulse Resp BP Pulse Ox 97.9 F 85 18 101/69 97 06/07/17 06:29 06/07/17 06:29 06/07/17 06:29 06/07/17 06:29 06/07/17 06:29 Vital Signs - Last 8 Hours Temp Pulse Resp BP Pulse Ox 06/09/17 09:49 32 86/59 100 06/09/17 09:19 104 32 83/59 100 06/09/17 08:46 98.6 F 110 32 89/58 99 06/09/17 08:18 32 112/87 100 06/09/17 07:41 121 32 96/66 100 06/09/17 07:00 124 28 70/56 100 06/09/17 06:24 120 28 82/63 100 06/09/17 06:00 112 28 83/60 89 06/09/17 05:00 112 28 75/51 06/09/17 04:59 28 77 06/09/17 04:00 117 28 91/65 06/09/17 03:16 28 81 06/09/17 03:00 111 28 87/77 Intake and Output 06/08/17 06/09/17 06/09/17 23:59 07:59 15:59 Intake Total 2504 / 2504 964 / 964 5229 / 5229 Output Total 0 / 0 30 / 30 Balance 2504 / 2504 934 / 934 5229 / 5229 Intake: IV Fluids 2504 / 2504 964 / 964 5229 / 5229 Vasostrict 40 UNIT In 0.9 % 102 / 102 Sodium Chloride 100 ML @ 0.03 UNIT/MIN 4.59 mls/hr IV . [id number] [facility] Rx#:[id number] 0.9 % Sodium Chloride 1,000 ML 1000 / 1000 2000 / 2000 @ 3750 mls/hr IVC .Q16M ONE Rx# :[id number] 0.9 % Sodium Chloride 500 ML @ 1000 / 1000 1875 mls/hr IVC .Q16M ONE Rx#: [id number] Flexbumin 25 gm In 100 ml @ 60 300 / 300 100 / 100 mls/hr IVC .Q1H40M [facility] Rx#: [id number] PRECEDEX Premix 400 mcg In 100 100 / 100 100 / 100 ml @ 0.2 MCG/KG/HR 3.58 mls/hr IVC .Q24H [facility] Rx#:[id number] Dextrose 50% (Vial) 50 ML In D5 550 / 550 % And 0.2% Nacl 500 Ml Bag 500 ML @ 50 mls/hr IVC .Q11H [facility] Rx #:[id number] EPINEPHrine 1 MG In Dextrose 5% 251 / 251 250 ML @ 2 MCG/MIN 30.12 mls/ hr [facility]C [facility] Rx#:[id number] FentaNYL (PF) 1,000 MCG In 0.9 100 / 100 100 / 100 % Sodium Chloride 80 ML @ 50 MCG/HR 5 mls/hr IVC [facility] Rx #:[id number] Levophed 4 MG In Dextrose 5% 254 / 254 254 / 254 254 / 254 250 ML @ 5 MCG/MIN 19.05 mls/hr IVC [facility] Rx#:[id number] Levophed 8 MG In Dextrose 5% 508 / 508 500 ML @ 5 MCG/MIN 19.05 mls/hr IVC CONT [facility] Rx#:[id number] Phenylephrine 10 MG In Dextrose 502 / 502 5% 250 ML @ 50 MCG/MIN 75.3 mls/hr IVC CONT [facility] Rx#: [id number] Phenylephrine 20 MG In Dextrose 502 / 502 5% 500 ML @ 50 MCG/MIN 75.3 mls/hr IVC [facility] Rx#: [id number] Merrem 1,000 MG In Water for inj. (sterile) 10 ML @ 200 mls/ hr IVP Q12HR [facility] Rx#:[id number] Calcium Gluconate 1,000 MG In 0 60 / 60 .9 % Sodium Chloride 50 ML @ 120 mls/hr IVPB ONCE ONE Rx#: [id number] Zosyn Premix 3.375 GM/200 ML 3. 200 / 200 200 / 200 375 gm In 200 ml @ 50 mls/hr IVPB Q8H [facility] Rx#:[id number] Vancocin 1,000 MG In Dextrose 5 250 / 250 % 250 ML @ 167 mls/hr IVPB Q24H [facility] Rx#:[id number] Oral 0 / 0 0 / 0 Output: Catheter 0 / 0 30 / 30 Gastric Drainage 0 / 0 0 / 0 Other: Blood Glucose* 65 80 - General Appearance General appearance: well-developed, well-nourished, appears started age EENT: mucous membranes moist Neck: no JVD Respiratory: rhonchi Cardiology: edema, irregular rhythm Additional Comments: 1+ pitting Gastrointestinal: hypoactive bowel sounds Integumentary: warm and dry Results - Lab Results 06/09/17 02:30 06/09/17 05:49 Most recent lab results ABG pH 7.12 pH Units (7.32-7.45) L* 06/09/17 10:26 ABG pCO2 50 mmHg (35-45) H 06/09/17 10:26 ABG pO2 92 mmHg (85-104) D 06/09/17 10:26 ABG HCO3 16 mEq/L (21-27) L 06/09/17 10:26 ABG O2 Saturation 94 % (95-98) L 06/09/17 10:26 Calcium 7.0 mg/dL (8.6-10.3) L 06/09/17 05:49 Phosphorus 7.2 mg/dL (2.7-4.5) H 06/09/17 05:49 Magnesium 1.9 mg/dL (1.6-2.6) 06/09/17 05:49 Consult Discharge Plan - Plan Referrals: Joni Lora MD [Partnered Physician] - 07/17/17 2:20 pm Arti Thacker MD [Primary Care Provider] - 06/15/17 11:00 am
[2017-06-09 11:31] LABS: Mean Corpuscular Volume 101.4 fL (83.0-100.0)
[2017-06-09 11:33] LABS: Hematocrit 22.1 % (37.5-50.1); Immature Platelets 19.7 % (1.1-6.1); Mean Corpuscular HGB Conc 31.7 g/dL (31.6-35.5); Mean Corpuscular Hemoglobin 32.1 pg (28.0-33.3); Mean Platelet Volume 13.4 fL (9.4-12.4); Nucleated Red Blood Cells 1.2 /100 WBC (0); Red Blood Count 2.18 M/mcL (4.19-5.50)
[2017-06-09 11:34] LABS: Platelet Count 35 K/mcL (140-400)
[2017-06-09 11:52] LABS: VBG Ionized Calcium 1.01 mmol/L (1.15-1.35)
[2017-06-09 11:55] LABS: Dohle Bodies Present (Not Present); Lymphocytes # 1.2 K/mcL (0.6-4.6); Neutrophils # 2.7 K/mcL (1.6-8.9); Toxic Granulation Present (Not Present); Toxic Vacuolation Present (Not Present)
[2017-06-09 11:56] LABS: Basophilic Stippling 1+ (Not Present); Burr Cells 1+ (Not Present); Polychromasia 1+ (Not Present); Reactive Lymphocytes Present (Not Present)
[2017-06-09 12:00] LABS: Albumin 3.1 g/dL (3.5-5.7); Albumin/Globulin Ratio 3.4 (1.1-2.2); Bilirubin,Direct 0.3 mg/dL (0.0-0.2); Bilirubin,Indirect 0.3 mg/dL (0.0-1.2); Bilirubin,Total 0.6 mg/dL (0.3-1.0); Calcium 6.9 mg/dL (8.6-10.3); Globulin 0.9 g/dL (2.4-3.5); Phosphorous 6.1 mg/dL (2.7-4.5); Potassium 3.8 mEq/L (3.5-5.1)
[2017-06-09] MEDS: Dextrose 50 % in Water (Vial) 50 ML in D5% in 0.2% NACL 500 ML IVC SCH ×2 (12:21→18:33)
[2017-06-09] MEDS: 0.9 % Sodium Chloride 1,000 ML IVC SCH (12:22)
[2017-06-09] MEDS: WATER IVC SCH ×2 (12:41→15:57)
[2017-06-09] MEDS: D5 IVC SCH ×2 (12:41→15:57)
[2017-06-09] MEDS: EPINEPHRINE IVC SCH ×2 (12:41→15:57)
[2017-06-09 13:01] LABS: Prothrombin Time 21.6 Seconds (9.4-12.1)
[2017-06-09] MEDS: PrismaSATE BGK 4/2.5 5,000 ML CRRT SCH ×3 (13:19→21:35)
[2017-06-09] MEDS: 0.9 % Sodium Chloride 1,000 ML PRIME SCH ×2 (14:15→20:42)
[2017-06-09 14:32] LABS: ABG Base Excess -13 mEq/L (-2 to 3); ABG HCO3 16 mEq/L (21-27); ABG Oxygen Saturation 93 % (95-98); ABG PCO2 51 mmHg (35-45); ABG PO2 92 mmHg (85-104); ABG TCO2 18 mEq/L (20-26); Blood Gas Modality ASSIST CONTROL; Blood Gas PEEP 12 cm H2O; Blood Gas Respiration Rate 32; Blood Gas VT 450 cc
--- NOTE | 2017-06-09 14:45 | Vascular/[facility] Progress Note ---
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 He is now sedated and intubated in the ICU secondary to aspiration pneumonitis/ pneumonia. He is currently on antibiotics. He is requiring pressors. He also has acute kidney injury and nephrology has been consulted. The patient has also developed acute expected blood loss anemia. His CT was reviewed and he fluid in the right retropertoneum along his graft limb. He did receive heparin for DVT prophylaxis yesterday. Will need to hold heparin at this time due to risk of bleeding. His abdomen is distended but soft due to his ileus. He will receive PRBCs today. Continue to monitor hemoglobin. He is currently critically ill and would not tolerate surgery at this time. The patient was discussed with Dr. Salas and the patients family. Qualifiers: Peripheral atherosclerosis artery type: bypass graft, nonbiological Lower extremity ulceration location: heel Qualified Code(s): I70.634 - Atherosclerosis of nonbiological bypass graft(s) of the right leg with ulceration of heel and midfoot; I70.644 - Atherosclerosis of nonbiological bypass graft(s) of the left leg with ulceration of heel and midfoot; I70.644 - Atherosclerosis of nonbiological bypass graft(s) of the left leg with ulceration of heel and midfoot; I70.644 - Atherosclerosis of nonbiological bypass graft(s) of the left leg with ulceration of heel and midfoot; I70.644 - Atherosclerosis of nonbiological bypass graft(s) of the left leg with ulceration of heel and midfoot; I70.644 - Atherosclerosis of nonbiological bypass graft(s) of the left leg with ulceration of heel and midfoot; I70.644 - Atherosclerosis of nonbiological bypass graft(s) of the left leg with ulceration of heel and midfoot (2) Hypertension Current Visit: Yes Status: Chronic Continue with beta anais. Qualifiers: Hypertension type: essential hypertension Qualified Code(s): I10 - Essential (primary) hypertension (3) Atrial fibrillation Current Visit: Yes Status: Chronic Qualifiers: Atrial fibrillation type: paroxysmal Qualified Code(s): I48.0 - Paroxysmal atrial fibrillation (4) CAD (coronary artery disease) Current Visit: Yes Status: Chronic Qualifiers: Coronary Disease-Associated Artery/Lesion type: [place] artery [place] vs. transplanted heart: [place] heart Associated angina: without angina Qualified Code(s): I25.10 - Atherosclerotic heart disease of [place] coronary artery without angina pectoris (5) Hyperlipidemia Current Visit: Yes Status: Chronic Qualifiers: Hyperlipidemia type: mixed hyperlipidemia Qualified Code(s): E78.2 - Mixed hyperlipidemia (6) Tobacco abuse Current Visit: Yes Status: Acute Nicotine patch - Subjective Interval history: Acute events overnight reviewed with Dr. Salas. The patient is now sedated and intubated. He remains on pressors. He has developed acute kidney injury. Vital Signs, Last 4 Hours Temp Pulse Resp BP Pulse Ox 06/09/17 14:23 97.6 F 84 32 85/55 94 06/09/17 14:21 97.6 F 84 32 85/55 94 06/09/17 14:16 32 80/53 94 06/09/17 14:08 97.7 F 87 32 78/52 92 06/09/17 13:12 96 32 82/54 94 06/09/17 12:53 98.4 F 98 32 83/53 93 06/09/17 11:15 32 06/09/17 11:14 32 86/54 100 - Physical Examination General: Present: Other (sedated and intubated) HEENT: Present: Pupils equal Neck: Absent: JVD Cardiac: Present: Reg Rate and Rhythm Lungs: Present: Decreased breath sounds Vascular: Present: Normal capillary refill, Pulse, normal (pedal signals polyphasic) Abdomen: Present: Soft, Other (no bowel sounds, distended) Skin: Present: Other (ecchymosis on right upper back) - VTE Documentation of Mechanical Device: Intermittent pneumatic compression device Results 06/09/17 11:20 06/09/17 11:20 Lab Results, Last 24 hours 06/08/17 06/08/17 06/08/17 17:15 17:15 17:15 WBC 16.9 H Hgb 11.2 L D Hct 35.1 L Plt Count 105 L INR APTT Sodium 140 Potassium 4.4 Chloride 112 H Carbon Dioxide 20 L BUN 33 H Creatinine 2.25 H Glucose 31 L* Calcium 7.8 L Magnesium 2.2 Total Bilirubin 0.5 AST 119 H ALT 38 Alkaline Phosphatase 53 Troponin I 0.04 H* B-Natriuretic Peptide TSH 16.394 H 06/08/17 06/08/17 06/08/17 17:15 17:15 19:40 WBC 17.1 H Hgb 11.7 L Hct 36.7 L Plt Count 106 L INR 1.1 APTT 62.9 H Sodium Potassium Chloride Carbon Dioxide BUN Creatinine Glucose Calcium Magnesium Total Bilirubin AST ALT Alkaline Phosphatase Troponin I B-Natriuretic Peptide 346 H [facility] 06/08/17 06/09/17 06/09/17 22:00 01:00 02:30 WBC 8.6 Hgb 11.2 L 11.1 L Hct 36.0 L 35.4 L Plt Count 75 L INR APTT Sodium Potassium Chloride Carbon Dioxide BUN Creatinine Glucose Calcium Magnesium Total Bilirubin AST ALT Alkaline Phosphatase Troponin I 0.09 H* B-Natriuretic Peptide [facility] 06/09/17 06/09/17 06/09/17 02:30 04:00 05:49 WBC Hgb Hct Plt Count INR 1.5 APTT 46.2 H Sodium 135 L Potassium 5.8 H D Chloride 110 H Carbon Dioxide 19 L BUN 39 H Creatinine 2.56 H Glucose 87 Calcium 7.0 L Magnesium Total Bilirubin AST ALT Alkaline Phosphatase Troponin I 0.19 H* B-Natriuretic Peptide [facility] 06/09/17 06/09/17 06/09/17 05:49 11:20 11:20 WBC 6.1 Hgb 7.0 L D Hct 22.1 L Plt Count 35 L D INR APTT Sodium 135 L 130 L Potassium 4.7 3.8 Chloride 108 H 103 Carbon Dioxide 18 L 18 L BUN 38 H 39 H Creatinine 2.59 H 2.73 H Glucose 96 122 H Calcium 7.0 L 6.9 L Magnesium 1.9 Total Bilirubin 0.6 0.6 AST 368 H 672 H ALT 70 H 102 H Alkaline Phosphatase 40 26 L Troponin I B-Natriuretic Peptide [facility] 06/09/17 12:35 WBC Hgb Hct Plt Count INR 2.0 APTT Sodium Potassium Chloride Carbon Dioxide BUN Creatinine Glucose Calcium Magnesium Total Bilirubin AST ALT Alkaline Phosphatase Troponin I B-Natriuretic Peptide TSH - Imaging / Other Tests CT/CTA: report reviewed, image reviewed Consult Discharge Plan - Plan Referrals: Joni Lora MD [Partnered Physician] - 07/17/17 2:20 pm Arti Thacker MD [Primary Care Provider] - 06/15/17 11:00 am
[2017-06-09 15:49] LABS: Hematocrit 20.8 % (37.5-50.1); Hemoglobin 6.4 g/dL (12.9-16.9)
[2017-06-09 18:13] LABS: Hematocrit 28.1 % (37.5-50.1)
[2017-06-09 18:15] LABS: Hemoglobin 8.8 g/dL (12.9-16.9)
[2017-06-09] MEDS ORDERED: Potassium Chloride 40 MEQ/200 ML BAG IVPB PRN (19:24)
[2017-06-09] MEDS ORDERED: Potassium Phosphate 44 MEQ in 0.9 % Sodium Chloride 250 ML IVPB PRN (19:24)
[2017-06-09 19:34] LABS: ABG Base Excess -9 mEq/L (-2 to 3); ABG HCO3 19 mEq/L (21-27); ABG Oxygen Saturation 85 % (95-98); ABG PCO2 52 mmHg (35-45); ABG PH 7.17 pH Units (7.32-7.45); ABG PO2 63 mmHg (85-104); ABG TCO2 21 mEq/L (20-26); Blood Gas Modality ASSIST CONTROL; Blood Gas PEEP 12 cm H2O; Blood Gas Respiration Rate 32; Blood Gas VT 450 cc
[2017-06-09 19:50] LABS: Hemoglobin 9.5 g/dL (12.9-16.9); Mean Corpuscular Volume 96.2 fL (83.0-100.0); Red Cell Distribution Width 15.3 % (11.5-14.5)
[2017-06-09 19:52] LABS: Basophils % 0.3 %; Hematocrit 30.2 % (37.5-50.1); Immature Granulocytes % 0.8 % (0-4); Immature Platelets 14.1 % (1.1-6.1); Lymphocytes # 0.7 K/mcL (0.6-4.6); Lymphocytes % 10.7 %; Mean Corpuscular HGB Conc 31.5 g/dL (31.6-35.5); Mean Corpuscular Hemoglobin 30.3 pg (28.0-33.3); Mean Platelet Volume 10.6 fL (9.4-12.4); Monocytes # 0.2 K/mcL (0.0-1.3); Monocytes % 3.6 %; Neutrophils # 5.6 K/mcL (1.6-8.9); Nucleated Red Blood Cells 2.1 /100 WBC (0); Red Blood Count 3.14 M/mcL (4.19-5.50); Segmented Neutrophils % 84.6 %
[2017-06-09 20:00] LABS: Platelet Count 28 K/mcL (140-400)
[2017-06-09 20:16] LABS: Potassium 3.7 mEq/L (3.5-5.1)
[2017-06-09 20:33] LABS: Reactive Lymphocytes Present (Not Present); Smudge Cells Present (Not Present); Toxic Granulation Present (Not Present)
[2017-06-09 20:34] LABS: Platelet Estimate Decreased (Normal); Polychromasia 1+ (Not Present); Toxic Vacuolation Present (Not Present)
[2017-06-09] MEDS: Vancomycin 1,000 MG in D5% in Water 250 ML IVPB SCH (20:40)
[2017-06-09 21:18] LABS: Hematocrit 30.9 % (37.5-50.1); Hemoglobin 9.8 g/dL (12.9-16.9)
[2017-06-09 21:36] LABS: Magnesium 1.6 mg/dL (1.6-2.6); Phosphorous 4.7 mg/dL (2.7-4.5)
[2017-06-09 21:44] LABS: VBG HCO3 20 mEq/L (21-27); VBG PCO2 50 mmHg (41-51); VBG PO2 273 mmHg (25-50)
[2017-06-09 21:49] LABS: VBG HCO3 19 mEq/L (21-27); VBG Ionized Calcium 0.87 mmol/L (1.15-1.35); VBG PCO2 45 mmHg (41-51); VBG PH 7.24 pH Units (7.32-7.42); VBG PO2 254 mmHg (25-50)
[2017-06-10 00:07] LABS: ABG Base Excess -3 mEq/L (-2 to 3); ABG HCO3 24 mEq/L (21-27); ABG Oxygen Saturation 90 % (95-98); ABG PCO2 54 mmHg (35-45); ABG PH 7.26 pH Units (7.32-7.45); ABG PO2 67 mmHg (85-104); ABG TCO2 26 mEq/L (20-26); Blood Gas Modality ASSIST CONTROL; Blood Gas PEEP 12 cm H2O; Blood Gas Respiration Rate 32; Blood Gas VT 450 cc
[2017-06-10] MEDS: *HR* Metoprolol 5 MG/5 ML VIAL IVP SCH ×5 (00:12→23:00)
[2017-06-10] MEDS: 0.9 % Sodium Chloride 1,000 ML IVC SCH (00:13)
[2017-06-10] MEDS: Dextrose 50 % in Water (Vial) 50 ML in D5% in 0.2% NACL 500 ML IVC SCH ×2 (00:14→17:10)
[2017-06-10] MEDS: Norepinephrine 8 MG in D5% in Water 500 ML IVC SCH ×5 (00:15→20:09)
[2017-06-10] MEDS: Lacri-Lube 3.5 GM TUBE BOTH EYES SCH ×7 (00:17→23:00)
[2017-06-10] MEDS: PrismaSATE BGK 4/2.5 5,000 ML CRRT SCH ×10 (00:28→22:48)
[2017-06-10] MEDS: 0.9 % Sodium Chloride 1,000 ML PRIME SCH ×2 (02:13→17:13)
[2017-06-10] MEDS: Sodium Bicarbonate 150 MEQ in D5% in Water 1,000 ML IVC SCH ×5 (02:13→17:39)
[2017-06-10] MEDS: Ipratropium/Albuterol Neb 3 ML IH SCH ×4 (04:00→21:26)
[2017-06-10 04:02] LABS: VBG Ionized Calcium 0.89 mmol/L (1.15-1.35); VBG PH 7.27 pH Units (7.32-7.42)
[2017-06-10] MEDS: Atracurium 250 MG in 0.9 % Sodium Chloride 225 ML IVC SCH (04:09)
[2017-06-10] MEDS: FentaNYL (PF) 1,000 MCG in 0.9 % Sodium Chloride 80 ML IVC SCH ×4 (04:12→20:07)
[2017-06-10 04:21] LABS: Hemoglobin 9.9 g/dL (12.9-16.9)
[2017-06-10 04:23] LABS: Basophils % 0.9 %; Hematocrit 30.1 % (37.5-50.1); Immature Granulocytes % 0.6 % (0-4); Immature Platelets 6.5 % (1.1-6.1); Lymphocytes # 0.5 K/mcL (0.6-4.6); Lymphocytes % 11.1 %; Mean Corpuscular HGB Conc 32.9 g/dL (31.6-35.5); Mean Corpuscular Hemoglobin 30.6 pg (28.0-33.3); Mean Corpuscular Volume 92.9 fL (83.0-100.0); Mean Platelet Volume 10.8 fL (9.4-12.4); Monocytes # 0.2 K/mcL (0.0-1.3); Monocytes % 4.3 %; Neutrophils # 3.9 K/mcL (1.6-8.9); Nucleated Red Blood Cells 4.7 /100 WBC (0); Red Blood Count 3.24 M/mcL (4.19-5.50); Red Cell Distribution Width 15.8 % (11.5-14.5); Segmented Neutrophils % 83.1 %
[2017-06-10 04:57] LABS: ABG Base Excess -2 mEq/L (-2 to 3); ABG HCO3 26 mEq/L (21-27); ABG Oxygen Saturation 87 % (95-98); ABG PCO2 61 mmHg (35-45); ABG PH 7.24 pH Units (7.32-7.45); ABG PO2 63 mmHg (85-104); ABG TCO2 28 mEq/L (20-26); Blood Gas Modality ASSIST CONTROL; Blood Gas PEEP 12 cm H2O; Blood Gas Respiration Rate 32; Blood Gas VT 450 cc
[2017-06-10] MEDS: Meropenem 1,000 MG in Water for inj. (sterile) 10 ML IVP SCH ×2 (05:00→18:20)
[2017-06-10] MEDS: Hydrocortisone Sodium Succ 100 MG/2 ML VIAL IVP SCH ×3 (05:00→20:43)
[2017-06-10] MEDS: Phenylephrine 20 MG in D5% in Water 500 ML IVC SCH (05:10)
[2017-06-10] MEDS: Phenylephrine 10 MG in D5% in Water 250 ML IVC SCH (05:16)
[2017-06-10 05:23] LABS: Platelet Count 49 K/mcL (140-400)
[2017-06-10 05:26] LABS: Platelet Estimate Decreased (Normal)
[2017-06-10] MEDS: Albumin 25% 25gram/100mL 25 GM/100 ML IV.SOLN IVPB SCH ×4 (06:04→23:00)
[2017-06-10 06:05] LABS: Magnesium 1.6 mg/dL (1.6-2.6); Phosphorous 4.2 mg/dL (2.7-4.5)
[2017-06-10] MEDS: Dexmedetomidine HCl 400 MCG/100 ML MLS IVC SCH ×4 (07:00→22:59)
--- NOTE | 2017-06-10 07:01 | Pulmonology Progress Note ---
<Zach Terry - Last Filed: 06/10/17 11:33> Date of Encounter: 06/10/17 Time of Encounter: 07:00 Assessment and Plan (1) Acute respiratory failure Current Visit: Yes Status: Acute CTA chest and a straight small bilateral pleural effusions with patchy airspace disease in the lower lobes suggesting possible pneumonia Ventilator support at 26, 500, 60, 10 (Decreased RR and TV) Sedation regimen: D/c Atracurium and still on precedex and fentanyl ABG this morning shows pH 7.33, PCO2 45, PO2 69 and HCO3 24 - repeat ABG in one hour and 6 hours Continuing bicarbonate infusion at this time - attempting to wean to improve ventilation +14L I/O yesterday - will slowly work some fluid off We will continue with ventilator support and IV antibiotics with vancomycin and meropenem, Labs every 6 hours Patient remains high-risk and we will monitor closely throughout the day. Discussion with family present and will change his CODE STATUS to DNR CCA at this time. Aggressive intervention will continue per family wishes. Qualifiers: Respiratory failure complication: hypoxia Qualified Code(s): J96.01 - Acute respiratory failure with hypoxia (2) Shock Current Visit: Yes Status: Acute Vasodilatory shock likely secondary to sepsis Echocardiogram was performed yesterday and no official report yet We will continue pressure support: - Levophed - Dopamine Responding well to albumin Lactic acid trending down to 3.5 today DOMENIC pulled off 1400 yesterday Attempting to wean off bicarb to improve to wean ventilation Continue vancomycin and meropenem Solu Cortef 100 mg every 8 hours Blood cultures showing NGTD Patient is high risk continue to monitor closely throughout the day. (3) Anemia Current Visit: Yes Status: Acute Hgb back up to 11.1-7.0-6.4-9.8 Received 2 units of PRBCs and platelets Will continue to monitor Qualifiers: Anemia type: unspecified type Qualified Code(s): D64.9 - Anemia, unspecified (4) S/P aorto-bifemoral bypass surgery Current Visit: Yes Status: Acute Vascular surgery following (5) RUBY (acute kidney injury) Current Visit: Yes Status: Acute RUBY improving to 1.77 today Minimal urine production over the last 24 hours 1436 off from DOMENIC yesterday and 140 gan (6) Hypertension Current Visit: Yes Status: Chronic Qualifiers: Hypertension type: essential hypertension Qualified Code(s): I10 - Essential (primary) hypertension (7) Atrial fibrillation Current Visit: Yes Status: Chronic History of paroxysmal atrial fibrillation that was seen to have flutter yesterday Starting Amio bolus with drip Qualifiers: Atrial fibrillation type: paroxysmal Qualified Code(s): I48.0 - Paroxysmal atrial fibrillation (8) CAD (coronary artery disease) Current Visit: Yes Status: Chronic Qualifiers: Coronary Disease-Associated Artery/Lesion type: [place] artery [place] vs. transplanted heart: havas[place]ai heart Associated angina: without angina Qualified Code(s): I25.10 - Atherosclerotic heart disease of havas[place]ai coronary artery without angina pectoris (9) Hyperlipidemia Current Visit: Yes Status: Chronic Qualifiers: Hyperlipidemia type: mixed hyperlipidemia Qualified Code(s): E78.2 - Mixed hyperlipidemia (10) Pleural effusion, left Current Visit: Yes Status: Acute (11) Diabetes mellitus Current Visit: No Status: Chronic No evidence of home medication. Patient presented with hypoglycemia we will continue to monitor and add sliding scale coverage as needed Qualifiers: Diabetes mellitus type: type 2 Diabetes mellitus complication status: with unspecified complications Diabetes mellitus intermodal customer service insulin use: unspecified intermodal customer service insulin use status Qualified Code(s): E11.8 - Type 2 diabetes mellitus with unspecified complications (12) DVT prophylaxis Current Visit: Yes Status: Acute Holding with acute drop in Hgb Subjective Interval history: Patient is admitted for acute respiratory failure secondary to pneumonia, metabolic encephalopathy and vasodilatory shock secondary to sepsis Patient appears comfortable lying in bed this morning Worsening blood pressure this morning He is currently on two pressors Undergoing DOMENIC Arterial line in place with central line and temporary dialysis catheter CODE STATUS to DNR CCA Objective PUL Vital signs: Last Vital Signs Temp 94.1 F L 06/10/17 03:00 Pulse 84 06/10/17 06:00 Resp 32 06/10/17 06:00 BP 87/57 06/10/17 06:00 Pulse Ox 89 06/10/17 06:00 General appearance: no acute distress (intubated) Eyes: nonicteric, other (PERRLA) ENT: other (ET tube in place) Neck: supple Effort: normal Auscultation: bilateral: diminished breath sounds Cardiovascular: regular rate and rhythm Gastrointestinal: normoactive bowel sounds Integumentary: normal Extremities: no cyanosis, no edema, no clubbing Musculoskeletal: no deformities unable to assess due to mental status Ventilator Settings Ventilator Settings: Ventilator Settings, Last 8 Hours Ventilator Mode VC+ Ventilator Mode VC+ Ventilator Mode VC+ Ventilator Mode VC+ Ventilator Mode VC+ Ventilator Mode A/C Ventilator Mode A/C Ventilator Mode A/C Ventilator Mode A/C Ventilator Mode A/C Ventilator Mode A/C Ventilator Tidal Volume 450 Setting Ventilator Tidal Volume 450 Setting Ventilator Tidal Volume 450 Setting Ventilator Tidal Volume 450 Setting Ventilator Tidal Volume 450 Setting Ventilator Tidal Volume 450 Setting Ventilator Tidal Volume 450 Setting Ventilator Tidal Volume 450 Setting Ventilator Tidal Volume 450 Setting Ventilator Tidal Volume 450 Setting Ventilator Tidal Volume 450 Setting Ventilator Respiratory Rate 32 Setting Ventilator Respiratory Rate 32 Setting Ventilator Respiratory Rate 32 Setting Ventilator Respiratory Rate 32 Setting Ventilator Respiratory Rate 32 Setting Ventilator Respiratory Rate 32 Setting Ventilator Respiratory Rate 32 Setting Ventilator Respiratory Rate 32 Setting Ventilator Respiratory Rate 32 Setting Ventilator Respiratory Rate 32 Setting Ventilator Respiratory Rate 32 Setting Actual Respiratory Rate 32 Actual Respiratory Rate 32 Actual Respiratory Rate 32 Actual Respiratory Rate 32 Actual Respiratory Rate 32 Actual Respiratory Rate 32 Actual Respiratory Rate 32 Actual Respiratory Rate 32 Actual Respiratory Rate 32 Actual Respiratory Rate 32 Positive End Expiratory 12 Pressure Positive End Expiratory 12 Pressure Positive End Expiratory 12 Pressure Positive End Expiratory 12 Pressure Positive End Expiratory 12 Pressure Positive End Expiratory 12 Pressure Positive End Expiratory 12 Pressure Positive End Expiratory 12 Pressure Positive End Expiratory 12 Pressure Positive End Expiratory 12 Pressure Positive End Expiratory 12 Pressure Peak Inspiratory Airway 34 Pressure Peak Inspiratory Airway 34 Pressure Peak Inspiratory Airway 34 Pressure Peak Inspiratory Airway 34 Pressure Peak Inspiratory Airway 33 Pressure Peak Inspiratory Airway 33 Pressure Peak Inspiratory Airway 33 Pressure Peak Inspiratory Airway 34 Pressure Peak Inspiratory Airway 34 Pressure Results - Laboratory Findings CBC and BMP: 06/10/17 11:20 06/10/17 03:30 ABG ABG pH 7.24 pH Units (7.32-7.45) L 06/10/17 04:54 ABG pCO2 61 mmHg (35-45) H 06/10/17 04:54 ABG pO2 63 mmHg (85-104) L 06/10/17 04:54 ABG O2 Saturation 87 % (95-98) L 06/10/17 04:54 PT/INR, D-dimer PT 21.6 Seconds (9.4-12.1) H 06/09/17 12:35 Abnormal lab findings: Abnormal lab results RBC 3.24 M/mcL (4.19-5.50) L 06/10/17 03:30 Hgb 9.9 g/dL (12.9-16.9) L 06/10/17 03:30 Hct 30.1 % (37.5-50.1) L 06/10/17 03:30 RDW 15.8 % (11.5-14.5) H 06/10/17 03:30 Plt Count 49 K/mcL (140-400) L D 06/10/17 03:30 Band Neutrophils % 20.0 % (0-4) H 06/09/17 11:20 Metamyelocytes % 6.0 % (0) H 06/09/17 11:20 Myelocytes % 30.0 % (0) H 06/09/17 11:20 Lymphocytes # 0.5 K/mcL (0.6-4.6) L 06/10/17 03:30 Nucleated RBCs/100 WBC 4.7 /100 WBC (0) H 06/10/17 03:30 Reactive Lymphocytes Present (Not Present) A 06/09/17 19:30 Smudge Cells Present (Not Present) A 06/09/17 19:30 Toxic Granulation Present (Not Present) A 06/09/17 19:30 Toxic Vacuolation Present (Not Present) A 06/09/17 19:30 Dohle Bodies Present (Not Present) A 06/09/17 11:20 Platelet Estimate Decreased (Normal) L 06/10/17 03:30 Large Platelets Present (Not Present) A 06/09/17 02:30 Immature Plt Fraction 6.5 % (1.1-6.1) H 06/10/17 03:30 Polychromasia 1+ (Not Present) A 06/09/17 19:30 Basophilic Stippling 1+ (Not Present) A 06/09/17 11:20 Rajni Cells 1+ (Not Present) A 06/09/17 11:20 PT 21.6 Seconds (9.4-12.1) H 06/09/17 12:35 APTT 46.2 Seconds (26.0-36.0) H 06/09/17 04:00 ABG pH 7.24 pH Units (7.32-7.45) L 06/10/17 04:54 ABG pCO2 61 mmHg (35-45) H 06/10/17 04:54 ABG pO2 63 mmHg (85-104) L 06/10/17 04:54 ABG Total CO2 28 mEq/L (20-26) H 06/10/17 04:54 ABG O2 Saturation 87 % (95-98) L 06/10/17 04:54 ABG Hematocrit 37.0 % (37.5-50.1) L 06/07/17 12:07 VBG pH 7.27 pH Units (7.32-7.42) L 06/10/17 03:48 VBG pO2 254 mmHg (25-50) H 06/09/17 21:47 VBG HCO3 19 mEq/L (21-27) L 06/09/17 21:47 Glucose 178 mg/dL (60-95) H 06/07/17 12:07 Sodium 127 mEq/L (136-145) L 06/10/17 03:30 Chloride 97 mEq/L (98-107) L 06/10/17 03:30 BUN 25 mg/dL (8-23) H 06/10/17 03:30 Creatinine 1.77 mg/dL (0.70-1.30) H 06/10/17 03:30 Est GFR ( Amer) 47 (> 60) L 06/10/17 03:30 Est GFR (Non-Af Amer) 39 (> 60) L 06/10/17 03:30 Glucose 118 mg/dL (70-105) H 06/10/17 03:30 POC Glucose 195 (58-89) H 06/09/17 17:15 Calculated Osmolality 269 (280-300) L 06/10/17 03:30 Lactic Acid 3.5 mmol/L (0.5-2.2) H 06/10/17 03:30 Calcium 6.0 mg/dL (8.6-10.3) L* 06/10/17 03:30 Venous Ioniz Calcium 0.89 mmol/L (1.15-1.35) L 06/10/17 03:48 Direct Bilirubin 0.3 mg/dL (0.0-0.2) H 06/09/17 11:20 AST 672 Units/L (13-39) H 06/09/17 11:20 ALT 102 Units/L (7-52) H 06/09/17 11:20 Alkaline Phosphatase 26 Units/L (34-104) L 06/09/17 11:20 Creatine Kinase 1228 Units/L (30-223) H 06/09/17 05:49 Troponin I 0.19 ng/mL (< 0.04) H* 06/09/17 05:49 B-Natriuretic Peptide 346 pg/mL (Less than 100) H 06/08/17 17:15 Serum Total Protein 4.0 g/dL (6.4-8.9) L 06/09/17 11:20 Albumin 3.1 g/dL (3.5-5.7) L 06/09/17 11:20 Globulin 0.9 g/dL (2.4-3.5) L 06/09/17 11:20 Albumin/Globulin Ratio 3.4 (1.1-2.2) H 06/09/17 11:20 TSH 16.394 mcIU/mL (0.340-5.600) H 06/08/17 17:15 - Microbiology Findings Microbiology Findings: Microbiology, Last 48 Hours 06/08/17 19:10 Blood Culture - Preliminary Peripheral Venipuncture No growth. 06/08/17 18:54 Blood Culture - Preliminary Peripheral Venipuncture No growth. 06/08/17 18:45 Urine Culture - Final Urine,[place] No growth. - Clinical Findings Intake & Output: Intake & Output 06/09/17 06/09/17 06/10/17 15:59 23:59 07:59 Intake Total 8639.0 / 8639.0 6939.1 / 6939.1 3675.9 / 3675.9 Output Total 101 / 101 1474 / 1474 493 / 493 Balance 8538.0 / 8538.0 5465.1 / 5465.1 3182.9 / 3182.9 Weight 91 kg - VTE Documentation of Mechanical Device: Intermittent pneumatic compression device Consult Discharge Plan - Plan Referrals: Joni Lora MD [Partnered Physician] - 07/17/17 2:20 pm Arti Thakcer MD [Primary Care Provider] - 06/15/17 11:00 am <Otto Salas W - Last Filed: 06/10/17 13:26> Date of Encounter: 06/10/17 Objective PUL Vital signs: Last Vital Signs Temp 96.5 F L 06/10/17 12:26 Pulse 86 06/10/17 12:26 Resp 26 06/10/17 12:26 BP 87/45 06/10/17 12:26 Pulse Ox 94 06/10/17 12:26 Ventilator Settings Ventilator Settings: Ventilator Settings, Last 8 Hours Ventilator Mode A/C Ventilator Mode A/C Ventilator Mode A/C Ventilator Mode A/C Ventilator Mode A/C Ventilator Mode A/C Ventilator Mode A/C Ventilator Mode A/C Ventilator Mode A/C Ventilator Mode A/C Ventilator Mode VC+ Ventilator Mode VC+ Ventilator Tidal Volume 500 Setting Ventilator Tidal Volume 500 Setting Ventilator Tidal Volume 500 Setting Ventilator Tidal Volume 530 Setting Ventilator Tidal Volume 530 Setting Ventilator Tidal Volume 530 Setting Ventilator Tidal Volume 530 Setting Ventilator Tidal Volume 530 Setting Ventilator Tidal Volume 530 Setting Ventilator Tidal Volume 530 Setting Ventilator Tidal Volume 530 Setting Ventilator Tidal Volume 450 Setting Ventilator Respiratory Rate 26 Setting Ventilator Respiratory Rate 26 Setting Ventilator Respiratory Rate 26 Setting Ventilator Respiratory Rate 30 Setting Ventilator Respiratory Rate 30 Setting Ventilator Respiratory Rate 30 Setting Ventilator Respiratory Rate 30 Setting Ventilator Respiratory Rate 30 Setting Ventilator Respiratory Rate 30 Setting Ventilator Respiratory Rate 30 Setting Ventilator Respiratory Rate 30 Setting Ventilator Respiratory Rate 32 Setting Actual Respiratory Rate 26 Actual Respiratory Rate 26 Actual Respiratory Rate 26 Actual Respiratory Rate 30 Actual Respiratory Rate 30 Actual Respiratory Rate 30 Actual Respiratory Rate 30 Actual Respiratory Rate 30 Actual Respiratory Rate 30 Actual Respiratory Rate 32 Positive End Expiratory 10 Pressure Positive End Expiratory 10 Pressure Positive End Expiratory 10 Pressure Positive End Expiratory 10 Pressure Positive End Expiratory 10 Pressure Positive End Expiratory 10 Pressure Positive End Expiratory 10 Pressure Positive End Expiratory 10 Pressure Positive End Expiratory 10 Pressure Positive End Expiratory 10 Pressure Positive End Expiratory 10 Pressure Positive End Expiratory 12 Pressure Peak Inspiratory Airway 34 Pressure Peak Inspiratory Airway 32 Pressure Peak Inspiratory Airway 33 Pressure Peak Inspiratory Airway 31 Pressure Peak Inspiratory Airway 32 Pressure Peak Inspiratory Airway 31 Pressure Peak Inspiratory Airway 31 Pressure Peak Inspiratory Airway 32 Pressure Peak Inspiratory Airway 34 Pressure Peak Inspiratory Airway 34 Pressure Results - Laboratory Findings CBC and BMP: 06/10/17 11:20 06/10/17 11:20 ABG ABG pH 7.27 pH Units (7.32-7.45) L 06/10/17 11:37 ABG pCO2 52 mmHg (35-45) H 06/10/17 11:37 ABG pO2 76 mmHg (85-104) L 06/10/17 11:37 ABG O2 Saturation 93 % (95-98) L 06/10/17 11:37 PT/INR, D-dimer PT 17.8 Seconds (9.4-12.1) H 06/10/17 07:20 Abnormal lab findings: Abnormal lab results RBC 3.00 M/mcL (4.19-5.50) L 06/10/17 11:20 Hgb 9.1 g/dL (12.9-16.9) L 06/10/17 11:20 Hct 27.6 % (37.5-50.1) L 06/10/17 11:20 RDW 15.9 % (11.5-14.5) H 06/10/17 11:20 Plt Count 15 K/mcL (140-400) L* D 06/10/17 11:20 Band Neutrophils % 18.0 % (0-4) H 06/10/17 11:20 Metamyelocytes % 6.0 % (0) H 06/09/17 11:20 Myelocytes % 2.0 % (0) H 06/10/17 11:20 Nucleated RBCs/100 WBC 4.2 /100 WBC (0) H 06/10/17 11:20 Reactive Lymphocytes Present (Not Present) A 06/09/17 19:30 Smudge Cells Present (Not Present) A 06/09/17 19:30 Toxic Granulation Present (Not Present) A 06/09/17 19:30 Toxic Vacuolation Present (Not Present) A 06/09/17 19:30 Dohle Bodies Present (Not Present) A 06/09/17 11:20 Platelet Estimate Marked Decrease (Normal) L 06/10/17 11:20 Large Platelets Present (Not Present) A 06/09/17 02:30 Immature Plt Fraction 6.5 % (1.1-6.1) H 06/10/17 03:30 Polychromasia 1+ (Not Present) A 06/09/17 19:30 Basophilic Stippling 1+ (Not Present) A 06/09/17 11:20 Anisocytosis 1+ (Not Present) A 06/10/17 11:20 Rajni Cells 1+ (Not Present) A 06/09/17 11:20 PT 17.8 Seconds (9.4-12.1) H 06/10/17 07:20 APTT 46.2 Seconds (26.0-36.0) H 06/09/17 04:00 ABG pH 7.27 pH Units (7.32-7.45) L 06/10/17 11:37 ABG pCO2 52 mmHg (35-45) H 06/10/17 11:37 ABG pO2 76 mmHg (85-104) L 06/10/17 11:37 ABG O2 Saturation 93 % (95-98) L 06/10/17 11:37 ABG Base Excess -3 mEq/L (-2 to 3) L 06/10/17 11:37 ABG Hematocrit 37.0 % (37.5-50.1) L 06/07/17 12:07 VBG pH 7.27 pH Units (7.32-7.42) L 06/10/17 03:48 VBG pO2 254 mmHg (25-50) H 06/09/17 21:47 VBG HCO3 19 mEq/L (21-27) L 06/09/17 21:47 Glucose 178 mg/dL (60-95) H 06/07/17 12:07 Sodium 128 mEq/L (136-145) L 06/10/17 11:20 Chloride 96 mEq/L (98-107) L 06/10/17 11:20 Creatinine 1.54 mg/dL (0.70-1.30) H 06/10/17 11:20 Est GFR ( Amer) 55 (> 60) L 06/10/17 11:20 Est GFR (Non-Af Amer) 46 (> 60) L 06/10/17 11:20 Glucose 54 mg/dL (70-105) L 06/10/17 11:20 POC Glucose 195 (58-89) H 06/09/17 17:15 Calculated Osmolality 267 (280-300) L 06/10/17 11:20 Lactic Acid 4.3 mmol/L (0.5-2.2) H* 06/10/17 11:20 Calcium 6.3 mg/dL (8.6-10.3) L 06/10/17 11:20 Venous Ioniz Calcium 0.89 mmol/L (1.15-1.35) L 06/10/17 03:48 Direct Bilirubin 0.3 mg/dL (0.0-0.2) H 06/09/17 11:20 AST 672 Units/L (13-39) H 06/09/17 11:20 ALT 102 Units/L (7-52) H 06/09/17 11:20 Alkaline Phosphatase 26 Units/L (34-104) L 06/09/17 11:20 Creatine Kinase 1228 Units/L (30-223) H 06/09/17 05:49 Troponin I 0.19 ng/mL (< 0.04) H* 06/09/17 05:49 B-Natriuretic Peptide 346 pg/mL (Less than 100) H 06/08/17 17:15 Serum Total Protein 4.0 g/dL (6.4-8.9) L 06/09/17 11:20 Albumin 3.1 g/dL (3.5-5.7) L 06/09/17 11:20 Globulin 0.9 g/dL (2.4-3.5) L 06/09/17 11:20 Albumin/Globulin Ratio 3.4 (1.1-2.2) H 06/09/17 11:20 TSH 16.394 mcIU/mL (0.340-5.600) H 06/08/17 17:15 Arterial Blood Ionized Calcium 0.90 mmol/L (1.15-1.35) L 06/10/17 11:35 - Microbiology Findings Microbiology Findings: Microbiology, Last 48 Hours 06/08/17 19:10 Blood Culture - Preliminary Peripheral Venipuncture No growth. 06/08/17 18:54 Blood Culture - Preliminary Peripheral Venipuncture No growth. 06/08/17 18:45 Urine Culture - Final Urine,[place] No growth. - Clinical Findings Intake & Output: Intake & Output 06/09/17 06/10/17 06/10/17 23:59 07:59 15:59 Intake Total 6939.1 / 6939.1 4240.8 / 4240.8 1980.6 / 1979.6 Output Total 1474 / 1474 498 / 498 143 / 143 Balance 5465.1 / 5465.1 3742.8 / 3742.8 1837.6 / 1837.6 Weight 91 kg - Attending Attestation I examined this patient and my medical decision-making was reviewed with the Resident Physician. I agree with the documented findings, disposition and treatment plan as described except to the extent set forth below. We independently had [id number] contact with the patient I spent 50min of Critical Care time with this patient. It involved decision making of high complexity to assess, manipulate, and support vital organ system failure and/or to prevent further life threatening deterioration of the patient' s condition. The time involved in the performance of separately reportable procedures was not counted toward critical care time. Patient seen and examined at bedside Labs, radiology, chart personally reviewed. Management was reviewed during multidisciplinary critical care rounds. LUMITE INJECTOR: Sedated and on neuromuscular blockade pupils are symmetric but reactive unclear medication of factor possibly acute CVA his to unstable to move to CT scan at this time however we will continue to monitor. Pulm: Acute hypoxic hypercarbic respiratory failure secondary to aspiration pneumonia complicated by refractory hypoxemia and ARDS. Remains on NMB for now with plan to stop as there has been significant improvement in alveolar recruitment. PEEP now at 10 with FiO2 around 50% with acceptable gas exchange. Plateau pressures remain less than 30 with acceptable driving pressures. Cards: Vasodilatory shock with MOSF he remains on multiple vasopressors but encouraged him to have been able to be weaned over the last 12 hours. Lactate remains elevated but trending down curiously the patient continues to respond to Colyte challenge and we have scheduled albumin for this purpose every 6 hours.. Goal map greater than 60 he does have evidence of end organ hypoperfusion especially in the extremities this is a combination of his underlying peripheral vascular disease along with use of vasopressors distal pulses are still able to be dopplered. Vascular surgery following for post surgical care. FEN-GI: Nothing by mouth for now GI prophylaxis given Renal: Acute kidney injury requiring CRRT. Multiple electrolyte derangements which are being followed regularly and repleted per protocol. He remains Anuric ID: Septic shock which is secondary to aspiration pneumonia he is on antimicrobials with planned to de-escalate cultures as far have been unremarkable Heme/Onc: Acute anemia which is multifactorial but I suspect yesterday that he did have some evidence of hemorrhage may be related to subcutaneous heparin for DVT prophylaxis which has been stopped he is status post PRBC transfusion yesterday with improvement overall in hemoglobin. Remains thrombocytopenic which is multifactorial including medication critical illness and continuous renal replacement therapy goal platelet count around 20 and we are transfusing for this reason today. Fibrinogen is normal without evidence of DIC Endo: Glucose Monitored. Continue stress dose hydrocortisone with plan to taper in next 24 hours Integ/MSK: Skin Care per routine ICU Nursing Protocol to prevent ulcers. Lines: All lines examined without evidence of infection : Dispo: Remain in ICU for ongoing critical care needs CODE: I had a lengthy conversation with the patient's family at bedside in the ICU today and explained to them that from a purely number standpoint patient appears to be improving it is unclear overall how he will do but I suspect that prognosis is very poor given degree of shock and multiorgan system failure is also very possible patient has endured a cerebrovascular ischemia/anoxia related to hypotension or more catastrophic he may have had a cerebral hemorrhage but this cannot be assessed at present. All questions answered at bedside and family expressed understanding of overall clinical situation he remains DNAR
[2017-06-10 07:34] LABS: ABG Base Excess -2 mEq/L (-2 to 3); ABG HCO3 25 mEq/L (21-27); ABG Oxygen Saturation 92 % (95-98); ABG PCO2 55 mmHg (35-45); ABG PH 7.27 pH Units (7.32-7.45); ABG PO2 74 mmHg (85-104); ABG TCO2 26 mEq/L (20-26); Blood Gas Modality ASSIST CONTROL; Blood Gas PEEP 10 cm H2O; Blood Gas Respiration Rate 32; Blood Gas VT 530 cc
[2017-06-10 07:38] LABS: INR 1.6; Prothrombin Time 17.8 Seconds (9.4-12.1)
[2017-06-10] MEDS ORDERED: Albumin Human 5% 25.0 GM/500 ML VIAL ONE (07:42)
[2017-06-10] MEDS: Chlorhexidine Rinse 15 ML MOUTHWASH MM SCH ×2 (07:51→20:43)
[2017-06-10] MEDS: Pantoprazole 40 MG VIAL IVP SCH (07:51)
[2017-06-10] MEDS: Levothyroxine Sodium 100 MCG VIAL IVP SCH (07:51)
[2017-06-10] MEDS: Nicotine 21 MG PATCH.TD24 TD SCH (07:52)
[2017-06-10] MEDS: Aspirin Enteric Coated 81 MG Tablet PO SCH (07:52)
[2017-06-10] MEDS: Fluticasone Propionate Nasal 50 MCG/SPRAY BOTTLE NS SCH (07:52)
--- NOTE | 2017-06-10 09:22 | Nephrology Progress Note ---
Date of Encounter: 06/10/17 Time of Encounter: 09:00 - Assessment and Plan (1) RUBY (acute kidney injury) Current Visit: Yes Status: Acute RUBY/hyperkalemia in setting of respiratory failure, shock. Continue CVVH. Recommend stopping Vanco for less nephrotoxic coverage. Will obtain renal us to r/o obstructive uropathy, currently held due to patient instability.. Continue to monitor. Subjective Interval history: Intubated, sedated, paralytic. FIO2 .60, peep 10. Oliguric. CVVH. Objective - Vital Signs Vital signs: Vital Signs Temp Pulse Resp BP Pulse Ox 06/10/17 08:12 97.4 F L 93 30 104/55 93 06/10/17 08:08 30 68/37 93 06/10/17 07:00 98 32 82/55 94 06/10/17 06:00 84 32 87/57 89 06/10/17 05:00 87 32 88/54 92 06/10/17 04:03 32 91 06/10/17 04:00 87 32 83/51 91 06/10/17 03:00 94.1 F L 81 32 83/52 91 06/10/17 02:22 32 91 06/10/17 01:58 82 32 90/52 91 06/10/17 01:00 92 32 86/51 90 06/10/17 00:00 94.4 F L 91 32 106/60 94 06/09/17 23:14 32 94 06/09/17 23:00 94.2 F L 80 32 96/51 94 06/09/17 22:59 80 06/09/17 22:40 92.1 F L 86 32 94/52 94 06/09/17 22:25 92.1 F L 90 32 111/58 94 06/09/17 22:00 92.1 F L 90 32 111/58 94 06/09/17 21:25 32 94 06/09/17 21:15 92.1 F L 87 32 123/59 94 06/09/17 21:00 92.1 F L 87 32 123/59 94 06/09/17 20:08 32 94 06/09/17 20:00 81 32 104/60 94 06/09/17 19:13 92.9 F L 81 32 104/60 94 06/09/17 19:04 86 32 100/62 97 01/27/18 19:00 82 06/09/17 18:58 92.9 F L 82 32 103/66 96 06/09/17 18:47 92.9 F L 82 32 103/66 96 06/09/17 18:03 80 32 110/64 96 06/09/17 17:18 32 92/58 92 06/09/17 17:11 74 32 90/58 94 06/09/17 16:28 96.1 F L 80 32 84/55 91 06/09/17 16:20 80 32 82/57 91 06/09/17 15:28 32 77/52 91 06/09/17 15:08 79 32 77/52 91 06/09/17 14:23 97.6 F 84 32 85/55 94 06/09/17 14:21 97.6 F 84 32 85/55 94 06/09/17 14:16 32 80/53 94 06/09/17 14:08 97.7 F 87 32 78/52 92 06/09/17 13:12 96 32 82/54 94 06/09/17 12:53 98.4 F 98 32 83/53 93 06/09/17 11:15 32 06/09/17 11:14 32 86/54 100 06/09/17 10:30 32 99 06/09/17 09:49 32 86/59 100 Intake and Output 06/09/17 06/10/17 06/10/17 23:59 07:59 15:59 Intake Total 6939.1 / 6939.1 4240.8 / 4240.8 745.6 / 745.6 Output Total 1474 / 1474 498 / 498 6 / 6 Balance 5465.1 / 5465.1 3742.8 / 3742.8 739.6 / 739.6 Intake: IV Fluids 5889.1 / 5889.1 3790.8 / 3790.8 744.6 / 744.6 0.9 % Sodium Chloride 500 ML As 0 / 0 .ROUTE .STK-MED ONE Rx#: [id number] PrismaSATE BGK 4/2.5 5,000 ML @ 0 / 0 0 / 0 2000 mls/hr CRRT CONT [facility] Rx#: [id number] Vasostrict 40 UNIT In 0.9 % 0 / 0 Sodium Chloride 100 ML @ 0.03 UNIT/MIN 4.59 mls/hr IV . [id number] [facility] Rx#:[id number] Amiodarone Drip Premix 360mg/ 200.0 / 200.0 200mL 360 mg In 200 ml @ 1 MG/ MIN 33.333 mls/hr IVC ONCE ONE Rx#:[id number] Atracurium 250 MG In 0.9 % 227.7 / 227.7 183.7 / 183.7 29.4 / 29.4 Sodium Chloride 225 ML @ 5 MCG/ KG/MIN 21.48 mls/hr IVC CONT [facility] Rx#:[id number] DOPamine Premix 400mg/250mL 400 28.7 / 28.7 74.6 / 74.6 mg In 250 ml @ 5 MCG/KG/MIN 17 .063 mls/hr IVC .[id number] [facility] Rx #:[id number] PRECEDEX Premix 400 mcg In 100 200.0 / 200.0 100.0 / 100.0 19.8 / 19.8 ml @ 0.2 MCG/KG/HR 3.58 mls/hr IVC .Q24H [facility] Rx#:[id number] EPINEPHrine 1 MG In Dextrose 5% 251 / 251 250 ML @ 2 MCG/MIN 30.12 mls/ hr IVC CONT [facility] Rx#:[id number] EPINEPHrine 2 MG In Dextrose 5% 502 / 502 500 ML @ 2 MCG/MIN 30.12 mls/ hr IVC CONT [facility] Rx#:[id number] FentaNYL (PF) 1,000 MCG In 0.9 200.0 / 200.0 159.8 / 159.8 24.8 / 24.8 % Sodium Chloride 80 ML @ 50 MCG/HR 5 mls/hr IVC CONT [facility] Rx #:[id number] Levophed 8 MG In Dextrose 5% 904.6 / 904.6 956.4 / 956.4 171 / 171 500 ML @ 5 MCG/MIN 19.05 mls/hr IVC CONT [facility] Rx#:[id number] Phenylephrine 20 MG In Dextrose 450.8 / 450.8 695.2 / 695.2 270 / 270 5% 500 ML @ 100 MCG/MIN 150.6 mls/hr IVC CONT [facility] Rx#: [id number] Sodium Bicarbonate 150 MEQ In 1573 / 1573 1447 / 1447 155 / 155 Dextrose 5% 1,000 ML @ 200 mls/ hr IVC .[id number] [facility] Rx#: [id number] Merrem 1,000 MG In Water for 10 10 inj. (sterile) 10 ML @ 200 mls/ hr IVP Q12HR [facility] Rx#:[id number] Flexbumin 25 gm In 100 ml @ 60 100 / 100 mls/hr IVPB Q6HR [facility] Rx#: [id number] Calcium Chloride 1,000 MG In 0. 60 / 60 9 % Sodium Chloride 50 ML @ 50 mls/hr IVPB ONCE ONE Rx#: [id number] Calcium Gluconate 1,000 MG In 0 60 / 60 60 / 60 .9 % Sodium Chloride 50 ML @ 111 mls/hr IVPB Q6HR PRN Rx#: [id number] Magnesium Sulfate Premix 2gm/ 50 / 50 50mL 2 gm In 50 ml @ 50 mls/hr IVPB Q6H PRN Rx#:[id number] Vancocin 1,000 MG In Dextrose 5 250 / 250 % 250 ML @ 167 mls/hr IVPB Q24H [facility] Rx#:[id number] 0.9 % Sodium Chloride 1,000 ML 1000 / 1000 @ 100 mls/hr PRIME .Q10H [facility] Rx #:[id number] Oral 0 / 0 0 / 0 Blood Product 1050 / 1050 450 / 450 Platelet Pheresis Lp Irr 2nd 0 / 0 450 / 450 Unit [id number] Platelet Pheresis Lp Irr 2nd 450 / 450 Unit [id number] Rbcs Leuko Poor As-1 Unit 300 / 300 [id number] Rbcs Leuko Poor As-1 Unit 300 / 300 [id number] Other Output: Urine 39 / 39 10 / 10 6 / 6 Becka 1435 / 1435 418 / 418 Catheter 20 / 20 Gastric Drainage 50 / 50 Other: Weight 91 kg - General Appearance General appearance: Present: well-developed, well-nourished, appears started age EENT: Present: mucous membranes moist Neck: Present: no JVD Additional Comments: harsh Cardiology: Present: edema, regular rate, regular rhythm Additional Comments: mild generalized, dusky toes Gastrointestinal: Present: absent bowel sounds Integumentary: Present: warm and dry - Lab 06/10/17 03:30 06/10/17 03:30 Most recent lab results ABG pH 7.27 pH Units (7.32-7.45) L 06/10/17 07:31 ABG pCO2 55 mmHg (35-45) H 06/10/17 07:31 ABG pO2 74 mmHg (85-104) L 06/10/17 07:31 ABG HCO3 25 mEq/L (21-27) 06/10/17 07:31 ABG O2 Saturation 92 % (95-98) L 06/10/17 07:31 Calcium 6.0 mg/dL (8.6-10.3) L* 06/10/17 03:30 Phosphorus 4.2 mg/dL (2.7-4.5) 06/10/17 03:30 Magnesium 1.6 mg/dL (1.6-2.6) 06/10/17 03:30 - VTE Documentation of Mechanical Device: Intermittent pneumatic compression device Consult Discharge Plan - Plan Referrals: Joni Lora MD [Partnered Physician] - 07/17/17 2:20 pm Arti Thacker MD [Primary Care Provider] - 06/15/17 11:00 am
[2017-06-10] MEDS ORDERED: Aminoglycoside Consult 1 EACH MC ONE (09:24)
[2017-06-10 10:36] LABS: ABG Base Excess -2 mEq/L (-2 to 3); ABG HCO3 24 mEq/L (21-27); ABG Oxygen Saturation 92 % (95-98); ABG PCO2 45 mmHg (35-45); ABG PH 7.34 pH Units (7.32-7.45); ABG PO2 69 mmHg (85-104); ABG TCO2 25 mEq/L (20-26); Blood Gas Modality ASSIST CONTROL; Blood Gas PEEP 10 cm H2O; Blood Gas Respiration Rate 30; Blood Gas VT 530 cc
[2017-06-10 11:24] LABS: Hematocrit 27.6 % (37.5-50.1); Hemoglobin 9.1 g/dL (12.9-16.9); Mean Corpuscular Hemoglobin 30.3 pg (28.0-33.3); Mean Platelet Volume 9.4 fL (9.4-12.4); Nucleated Red Blood Cells 4.2 /100 WBC (0); Red Cell Distribution Width 15.9 % (11.5-14.5)
[2017-06-10 11:26] LABS: Platelet Count 15 K/mcL (140-400)
[2017-06-10 11:40] LABS: Calcium 6.3 mg/dL (8.6-10.3); Magnesium 1.6 mg/dL (1.6-2.6); Potassium 4.2 mEq/L (3.5-5.1)
[2017-06-10 11:41] LABS: ABG Base Excess -3 mEq/L (-2 to 3); ABG HCO3 24 mEq/L (21-27); ABG Oxygen Saturation 93 % (95-98); ABG PCO2 52 mmHg (35-45); ABG PH 7.27 pH Units (7.32-7.45); ABG PO2 76 mmHg (85-104); ABG TCO2 26 mEq/L (20-26); Blood Gas Modality ASSIST CONTROL; Blood Gas PEEP 10 cm H2O; Blood Gas Respiration Rate 26; Blood Gas VT 500 cc
[2017-06-10 11:45] LABS: Monocytes # 0.7 K/mcL (0.0-1.3); Neutrophils # 5.1 K/mcL (1.6-8.9)
[2017-06-10 11:46] LABS: Platelet Estimate Marked Decrease (Normal)
[2017-06-10 11:48] LABS: Anisocytosis 1+ (Not Present)
[2017-06-10] MEDS: *HR* Dextrose 50 % in Water (Syg) 50 ML SYRINGE IVP PRN (12:28)
--- NOTE | 2017-06-10 12:48 | Vascular/Endovas Progress Note ---
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 He remains sedated and intubated in the ICU secondary to aspiration pneumonitis/ pneumonia. He remains on antibiotics. He is requiring pressors. His hemoglobin is stable. He has no evidence of ongoing blood loss. His WBC has decreased. He remains on pressors and requires ventilatory support. He has had minimal urine output. Will continue with supportive care. Condition discussed with the family. Qualifiers: Peripheral atherosclerosis artery type: bypass graft, nonbiological Lower extremity ulceration location: heel Qualified Code(s): I70.634 - Atherosclerosis of nonbiological bypass graft(s) of the right leg with ulceration of heel and midfoot; I70.644 - Atherosclerosis of nonbiological bypass graft(s) of the left leg with ulceration of heel and midfoot; I70.644 - Atherosclerosis of nonbiological bypass graft(s) of the left leg with ulceration of heel and midfoot; I70.644 - Atherosclerosis of nonbiological bypass graft(s) of the left leg with ulceration of heel and midfoot; I70.644 - Atherosclerosis of nonbiological bypass graft(s) of the left leg with ulceration of heel and midfoot; I70.644 - Atherosclerosis of nonbiological bypass graft(s) of the left leg with ulceration of heel and midfoot; I70.644 - Atherosclerosis of nonbiological bypass graft(s) of the left leg with ulceration of heel and midfoot (2) Hypertension Current Visit: Yes Status: Chronic Continue with beta anais. Qualifiers: Hypertension type: essential hypertension Qualified Code(s): I10 - Essential (primary) hypertension (3) Atrial fibrillation Current Visit: Yes Status: Chronic Qualifiers: Atrial fibrillation type: paroxysmal Qualified Code(s): I48.0 - Paroxysmal atrial fibrillation (4) CAD (coronary artery disease) Current Visit: Yes Status: Chronic Qualifiers: Coronary Disease-Associated Artery/Lesion type: [place] artery [place] vs. transplanted heart: [place] heart Associated angina: without angina Qualified Code(s): I25.10 - Atherosclerotic heart disease of [place] coronary artery without angina pectoris (5) Hyperlipidemia Current Visit: Yes Status: Chronic Qualifiers: Hyperlipidemia type: mixed hyperlipidemia Qualified Code(s): E78.2 - Mixed hyperlipidemia (6) Tobacco abuse Current Visit: Yes Status: Acute Nicotine patch - Subjective Interval history: The patient remains sedated and intubated. He has spontaneous eye opening today. Vital Signs, Last 4 Hours Temp Pulse Resp BP Pulse Ox 06/10/17 12:26 96.5 F L 86 26 87/45 94 06/10/17 12:04 96.5 F L 86 26 87/45 94 06/10/17 11:16 26 95 06/10/17 11:00 96 26 89/46 95 06/10/17 10:02 30 101/53 94 06/10/17 10:01 89 30 105/53 94 06/10/17 09:00 94 30 113/57 94 - Physical Examination Neck: Absent: JVD Cardiac: Present: Reg Rate and Rhythm Lungs: Present: Decreased breath sounds Vascular: Present: Normal capillary refill, Pulse, normal (pedal signals polyphasic) Abdomen: Present: Other (incisions clean, dry and intact, no erythema or drainage, abdomen is soft, no bowel sounds). Absent: Masses Skin: Present: No rashes noted on visualized skin - VTE Documentation of Mechanical Device: Intermittent pneumatic compression device Results 06/11/17 03:30 06/11/17 03:30 Lab Results, Last 24 hours 06/09/17 06/09/17 06/09/17 12:35 14:25 18:03 WBC Hgb 6.4 L 8.8 L D Hct 20.8 L 28.1 L Plt Count INR 2.0 Sodium Potassium Chloride Carbon Dioxide BUN Creatinine Glucose Calcium Magnesium 06/09/17 06/09/17 06/09/17 19:30 19:30 21:11 WBC 6.6 Hgb 9.5 L 9.8 L Hct 30.2 L 30.9 L Plt Count 28 L* INR Sodium 127 L Potassium 3.7 Chloride 98 Carbon Dioxide 19 L BUN 31 H Creatinine 2.11 H Glucose 109 H Calcium 6.0 L* Magnesium 06/09/17 06/10/17 06/10/17 21:11 03:30 03:30 WBC 4.7 Hgb 9.9 L Hct 30.1 L Plt Count 49 L D INR Sodium 127 L Potassium 4.0 Chloride 97 L Carbon Dioxide 23 BUN 25 H Creatinine 1.77 H Glucose 118 H Calcium 6.0 L* Magnesium 1.6 06/10/17 06/10/17 06/10/17 03:30 07:20 11:20 WBC 6.9 Hgb 9.1 L Hct 27.6 L Plt Count 15 L* D INR 1.6 Sodium Potassium Chloride Carbon Dioxide BUN Creatinine Glucose Calcium Magnesium 1.6 06/10/17 11:20 WBC Hgb Hct Plt Count INR Sodium 128 L Potassium 4.2 Chloride 96 L Carbon Dioxide 23 BUN 21 Creatinine 1.54 H Glucose 54 L Calcium 6.3 L Magnesium 1.6 Consult Discharge Plan - Plan Referrals: Joni Lora MD [Partnered Physician] - 07/17/17 2:20 pm Arti Thacker MD [Primary Care Provider] - 06/15/17 11:00 am
[2017-06-10 14:25] LABS: ABG Base Excess -3 mEq/L (-2 to 3); ABG HCO3 24 mEq/L (21-27); ABG Oxygen Saturation 89 % (95-98); ABG PCO2 53 mmHg (35-45); ABG PH 7.27 pH Units (7.32-7.45); ABG PO2 65 mmHg (85-104); ABG TCO2 26 mEq/L (20-26); Blood Gas Modality ASSIST CONTROL; Blood Gas PEEP 10 cm H2O; Blood Gas Respiration Rate 26; Blood Gas VT 500 cc
[2017-06-10] MEDS ORDERED: *HR* Dextrose 50 % in Water (Syg) 50 ML SYRINGE ONE (15:31)
[2017-06-10] MEDS ORDERED: *HR* Dextrose 50 % in Water (Syg) 50 ML SYRINGE IVP ONE (15:33)
[2017-06-10] MEDS ORDERED: 0.9 % Sodium Chloride 250 ML ONE (16:51)
[2017-06-10 17:38] LABS: Basophils % 0.6 %; Eosinophils % 0.1 %; Hemoglobin 8.9 g/dL (12.9-16.9)
[2017-06-10 17:40] LABS: Basophils # 0.1 K/mcL (0.0-0.2); Hematocrit 27.2 % (37.5-50.1); Immature Granulocytes % 1.1 % (0-4); Immature Platelets 8.4 % (1.1-6.1); Lymphocytes # 0.3 K/mcL (0.6-4.6); Mean Corpuscular HGB Conc 32.7 g/dL (31.6-35.5); Mean Corpuscular Hemoglobin 30.2 pg (28.0-33.3); Mean Corpuscular Volume 92.2 fL (83.0-100.0); Mean Platelet Volume 9.4 fL (9.4-12.4); Monocytes # 0.4 K/mcL (0.0-1.3); Neutrophils # 7.6 K/mcL (1.6-8.9); Nucleated Red Blood Cells 3.4 /100 WBC (0); Red Blood Count 2.95 M/mcL (4.19-5.50); Red Cell Distribution Width 15.9 % (11.5-14.5); Segmented Neutrophils % 90.2 %
[2017-06-10 17:43] LABS: ABG Ionized Calcium 0.91 mmol/L (1.15-1.35)
[2017-06-10 17:44] LABS: Platelet Count 14 K/mcL (140-400)
[2017-06-10 17:55] LABS: Calcium 6.7 mg/dL (8.6-10.3); Magnesium 1.7 mg/dL (1.6-2.6); Potassium 4.4 mEq/L (3.5-5.1)
[2017-06-10 17:59] LABS: ABG Base Excess -2 mEq/L (-2 to 3); ABG HCO3 24 mEq/L (21-27); ABG Oxygen Saturation 92 % (95-98); ABG PCO2 50 mmHg (35-45); ABG PO2 72 mmHg (85-104); ABG TCO2 26 mEq/L (20-26); Blood Gas Modality ASSIST CONTROL; Blood Gas PEEP 10 cm H2O; Blood Gas Respiration Rate 26; Blood Gas VT 500 cc
[2017-06-10 18:04] LABS: Platelet Estimate Marked Decrease (Normal); Polychromasia 1+ (Not Present)
[2017-06-10] MEDS: Vancomycin 1,000 MG in D5% in Water 250 ML IVPB SCH (20:43)
[2017-06-10] MEDS ORDERED: *HR* Heparin 5,000 UNIT/ML VIAL ONE (22:40)
[2017-06-10 22:52] LABS: VBG Ionized Calcium 0.89 mmol/L (1.15-1.35); VBG PH 7.36 pH Units (7.32-7.42)
[2017-06-11 00:09] LABS: Hemoglobin 8.2 g/dL (12.9-16.9); Lymphocytes % 3.2 %; Red Cell Distribution Width 16.2 % (11.5-14.5)
[2017-06-11 00:11] LABS: Basophils # 0.1 K/mcL (0.0-0.2); Basophils % 0.5 %; Eosinophils % 0.3 %; Hematocrit 24.9 % (37.5-50.1); Immature Granulocytes % 1.3 % (0-4); Immature Platelets 5.5 % (1.1-6.1); Lymphocytes # 0.3 K/mcL (0.6-4.6); Mean Corpuscular HGB Conc 32.9 g/dL (31.6-35.5); Mean Corpuscular Hemoglobin 30.6 pg (28.0-33.3); Mean Corpuscular Volume 92.9 fL (83.0-100.0); Mean Platelet Volume 10.8 fL (9.4-12.4); Monocytes # 0.4 K/mcL (0.0-1.3); Monocytes % 3.8 %; Neutrophils # 9.6 K/mcL (1.6-8.9); Red Blood Count 2.68 M/mcL (4.19-5.50); Segmented Neutrophils % 90.9 %
[2017-06-11] MEDS ORDERED: FentaNYL (PF) 3,000 MCG in 0.9 % Sodium Chloride 240 ML IVC SCH (00:15)
[2017-06-11 00:38] LABS: Platelet Count 62 K/mcL (140-400)
[2017-06-11 00:50] LABS: Platelet Estimate Decreased (Normal)
[2017-06-11 01:56] LABS: BUN/Creatinine Ratio 13 (6-26); Blood Urea Nitrogen 18 mg/dL (8-23); Calcium 6.9 mg/dL (8.6-10.3); Carbon Dioxide 23 mEq/L (23-29); Chloride 96 mEq/L (98-107); Glucose 79 mg/dL (70-105); Magnesium 1.9 mg/dL (1.6-2.6); Osmolality,Calculated 263 (280-300); Phosphorous 3.1 mg/dL (2.7-4.5); Potassium 4.6 mEq/L (3.5-5.1); Sodium 126 mEq/L (136-145); eGFR For African Americans > 60 (> 60); eGFR For Non-African Americans 51 (> 60)
[2017-06-11] MEDS: Sodium Bicarbonate 150 MEQ in D5% in Water 1,000 ML IVC SCH ×2 (02:17→04:58)
[2017-06-11] MEDS: 0.9 % Sodium Chloride 1,000 ML PRIME SCH ×3 (02:18→20:05)
[2017-06-11 02:33] LABS: Calcium 6.8 mg/dL (8.6-10.3); Magnesium 1.8 mg/dL (1.6-2.6); Phosphorous 3.2 mg/dL (2.7-4.5); Potassium 4.7 mEq/L (3.5-5.1)
[2017-06-11] MEDS: Norepinephrine 8 MG in D5% in Water 500 ML IVC SCH ×2 (02:55→11:49)
[2017-06-11] MEDS: Lacri-Lube 3.5 GM TUBE BOTH EYES SCH ×6 (03:11→23:08)
[2017-06-11] MEDS: Ipratropium/Albuterol Neb 3 ML IH SCH ×4 (03:18→22:52)
[2017-06-11] MEDS: *HR* Metoprolol 5 MG/5 ML VIAL IVP SCH ×4 (03:47→23:08)
[2017-06-11] MEDS: Dextrose 50 % in Water (Vial) 50 ML in D5% in 0.2% NACL 500 ML IVC SCH ×3 (03:52→23:09)
[2017-06-11 03:58] LABS: Eosinophils % 0.1 %; Hemoglobin 8.2 g/dL (12.9-16.9); Lymphocytes % 1.8 %; Mean Corpuscular Hemoglobin 30.4 pg (28.0-33.3); Mean Platelet Volume 9.6 fL (9.4-12.4); Nucleated Red Blood Cells 3.1 /100 WBC (0)
[2017-06-11 03:59] LABS: Basophils % 0.4 %; Hematocrit 24.8 % (37.5-50.1); Immature Granulocytes % 0.4 % (0-4); Immature Platelets 5.9 % (1.1-6.1); Lymphocytes # 0.2 K/mcL (0.6-4.6); Mean Corpuscular HGB Conc 33.1 g/dL (31.6-35.5); Mean Corpuscular Volume 91.9 fL (83.0-100.0); Monocytes % 4.9 %; Neutrophils # 10.3 K/mcL (1.6-8.9); Red Cell Distribution Width 16.2 % (11.5-14.5); Segmented Neutrophils % 92.4 %
[2017-06-11 04:05] LABS: Monocytes # 0.5 K/mcL (0.0-1.3)
[2017-06-11 04:07] LABS: Platelet Count 27 K/mcL (140-400)
[2017-06-11 04:23] LABS: BUN/Creatinine Ratio 13 (6-26); Blood Urea Nitrogen 18 mg/dL (8-23); Carbon Dioxide 24 mEq/L (23-29); Chloride 96 mEq/L (98-107); Glucose 75 mg/dL (70-105); Osmolality,Calculated 265 (280-300); Potassium 4.6 mEq/L (3.5-5.1); Sodium 127 mEq/L (136-145); eGFR For African Americans > 60 (> 60); eGFR For Non-African Americans 51 (> 60)
[2017-06-11 04:23] LABS: VBG PH 7.38 pH Units (7.32-7.42)
[2017-06-11] MEDS: Hydrocortisone Sodium Succ 100 MG/2 ML VIAL IVP SCH (04:57)
[2017-06-11] MEDS: Dexmedetomidine HCl 400 MCG/100 ML MLS IVC SCH ×5 (04:57→21:42)
[2017-06-11] MEDS: Meropenem 1,000 MG in Water for inj. (sterile) 10 ML IVP SCH (04:57)
[2017-06-11] MEDS: Albumin 25% 25gram/100mL 25 GM/100 ML IV.SOLN IVPB SCH (04:58)
[2017-06-11] MEDS: Phenylephrine 10 MG in D5% in Water 250 ML IVC SCH (05:36)
[2017-06-11 05:46] LABS: Anisocytosis 1+ (Not Present); Platelet Estimate Marked Decrease (Normal)
[2017-06-11] MEDS: PrismaSATE BGK 4/2.5 5,000 ML CRRT SCH ×8 (05:47→23:54)
[2017-06-11 06:01] LABS: ABG Base Excess 1 mEq/L (-2 to 3); ABG HCO3 26 mEq/L (21-27); ABG Oxygen Saturation 95 % (95-98); ABG PCO2 44 mmHg (35-45); ABG PH 7.39 pH Units (7.32-7.45); ABG PO2 75 mmHg (85-104); ABG TCO2 28 mEq/L (20-26); Blood Gas Modality ASSIST CONTROL; Blood Gas PEEP 10 cm H2O; Blood Gas Respiration Rate 26; Blood Gas VT 500 cc
[2017-06-11] MEDS: Pantoprazole 40 MG VIAL IVP SCH (07:45)
[2017-06-11] MEDS: Aspirin Enteric Coated 81 MG Tablet PO SCH (07:45)
[2017-06-11] MEDS: Levothyroxine Sodium 100 MCG VIAL IVP SCH (07:45)
[2017-06-11] MEDS: Chlorhexidine Rinse 15 ML MOUTHWASH MM SCH ×2 (07:45→20:05)
[2017-06-11] MEDS: Nicotine 21 MG PATCH.TD24 TD SCH (07:45)
[2017-06-11 08:03] LABS: Albumin 3.7 g/dL (3.5-5.7); Bilirubin,Direct 0.9 mg/dL (0.0-0.2); Bilirubin,Total 1.9 mg/dL (0.3-1.0)
[2017-06-11 08:09] LABS: Albumin/Globulin Ratio 3.4 (1.1-2.2); Globulin 1.1 g/dL (2.4-3.5); Total Protein 4.8 g/dL (6.4-8.9)
--- NOTE | 2017-06-11 08:33 | Pulmonology Progress Note ---
<Alex Duff - Last Filed: 06/11/17 11:14> Date of Encounter: 06/11/17 Time of Encounter: 08:30 Assessment and Plan (1) Respiratory failure Current Visit: Yes Status: Acute We will continue with patient's intubation as he is currently sedated. We do not Feel that the patient is a candidate for SBT today. Qualifiers: Chronicity: acute Respiratory failure complication: unspecified whether with hypoxia or hypercapnia Qualified Code(s): J96.00 - Acute respiratory failure, unspecified whether with hypoxia or hypercapnia (2) Shock Current Visit: Yes Status: Acute Patient remains on vasopressors. Dopamine is discontinued at this time. We will continue the patient on norepinephrine. We will place the patient on Zosyn for coverage. We will stop the patient's vancomycin and meropenem due to negative cultures at this time. We will also cover the patient for associated possible aspirate of pneumonia. (3) Pleural effusion, left Current Visit: Yes Status: Acute The patient is continued on antibiotics. Pleural effusion is present. This is again likely aspirated given the episode of patient pulling out the OG tube. We will discuss discontinuation of vancomycin versus changing to less nephrotoxic medications. (4) S/P aorto-bifemoral bypass surgery Current Visit: Yes Status: Acute (5) RUBY (acute kidney injury) Current Visit: Yes Status: Acute Patient continued on CVVH. Nephrology consulted and participating in care. (6) Thrombocytopenia Current Visit: Yes Status: Acute Patient received platelets this morning. We will continue to monitor as the patient's platelets are critically low. The patient is having no active bleeding at this time. The patient is currently on CVVH. (7) Hypoglycemia Current Visit: Yes Status: Acute Continue to monitor. (8) Atrial fibrillation Current Visit: Yes Status: Chronic Qualifiers: Atrial fibrillation type: paroxysmal Qualified Code(s): I48.0 - Paroxysmal atrial fibrillation (9) CAD (coronary artery disease) Current Visit: Yes Status: Chronic Qualifiers: Coronary Disease-Associated Artery/Lesion type: [place] artery [place] vs. transplanted heart: [place] heart Associated angina: without angina Qualified Code(s): I25.10 - Atherosclerotic heart disease of [place] coronary artery without angina pectoris (10) Hyperlipidemia Current Visit: Yes Status: Chronic Qualifiers: Hyperlipidemia type: mixed hyperlipidemia Qualified Code(s): E78.2 - Mixed hyperlipidemia (11) Hypertension Current Visit: Yes Status: Chronic Qualifiers: Hypertension type: essential hypertension Qualified Code(s): I10 - Essential (primary) hypertension (12) Diabetes mellitus Current Visit: No Status: Chronic Qualifiers: Diabetes mellitus type: type 2 Diabetes mellitus complication status: with unspecified complications 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 He was started on dopamine as well as continued on Levophed. His pressures have remained stable overnight on these vasopressors. He patient's lactic acid remains elevated but continues to trend downward. The patient is continued on CVVH. Nephrology remains consulted and recommended discontinuation of vancomycin. The patient lab work is consistent with septic shock. His transaminases have improved from previous days. The patient's mental status remains the same. Objective PUL Vital signs: Last Vital Signs Temp 98.4 F 06/11/17 08:00 Pulse 86 06/11/17 08:00 Resp 26 06/11/17 08:00 BP 84/54 06/11/17 08:00 Pulse Ox 96 06/11/17 08:00 General appearance: other (Patient is currently intubated and sedated.) Eyes: nonicteric ENT: oropharynx moist Auscultation: bilateral: diminished breath sounds Gastrointestinal: hypoactive bowel sounds, soft Integumentary: normal, other (Mild chronic discoloration of bilateral upper extremities, worse on the right.) Extremities: cyanosis (Mild noted on right fingertips. Capillary refill still present. Good pulses noted bilateral radial pulses.) other (Patient currently deeply sedated and intubated.) Ventilator Settings Ventilator Settings: Ventilator Settings, Last 8 Hours Ventilator Mode A/C Ventilator Mode A/C Ventilator Mode A/C Ventilator Mode A/C Ventilator Mode A/C Ventilator Mode A/C Ventilator Mode A/C Ventilator Mode A/C Ventilator Mode A/C Ventilator Mode A/C Ventilator Mode A/C Ventilator Mode A/C Ventilator Tidal Volume 500 Setting Ventilator Tidal Volume 500 Setting Ventilator Tidal Volume 500 Setting Ventilator Tidal Volume 500 Setting Ventilator Tidal Volume 500 Setting Ventilator Tidal Volume 500 Setting Ventilator Tidal Volume 500 Setting Ventilator Tidal Volume 500 Setting Ventilator Tidal Volume 500 Setting Ventilator Tidal Volume 500 Setting Ventilator Tidal Volume 500 Setting Ventilator Tidal Volume 500 Setting Ventilator Respiratory Rate 26 Setting Ventilator Respiratory Rate 26 Setting Ventilator Respiratory Rate 26 Setting Ventilator Respiratory Rate 26 Setting Ventilator Respiratory Rate 26 Setting Ventilator Respiratory Rate 26 Setting Ventilator Respiratory Rate 26 Setting Ventilator Respiratory Rate 26 Setting Ventilator Respiratory Rate 26 Setting Ventilator Respiratory Rate 26 Setting Ventilator Respiratory Rate 26 Setting Ventilator Respiratory Rate 26 Setting Actual Respiratory Rate 26 Actual Respiratory Rate 28 Actual Respiratory Rate 32 Actual Respiratory Rate 26 Actual Respiratory Rate 28 Actual Respiratory Rate 28 Actual Respiratory Rate 28 Actual Respiratory Rate 28 Actual Respiratory Rate 28 Actual Respiratory Rate 28 Actual Respiratory Rate 26 Positive End Expiratory 10 Pressure Positive End Expiratory 10 Pressure Positive End Expiratory 10 Pressure Positive End Expiratory 10 Pressure Positive End Expiratory 10 Pressure Positive End Expiratory 10 Pressure Positive End Expiratory 10 Pressure Positive End Expiratory 10 Pressure Positive End Expiratory 10 Pressure Positive End Expiratory 10 Pressure Positive End Expiratory 10 Pressure Positive End Expiratory 10 Pressure Peak Inspiratory Airway 32 Pressure Peak Inspiratory Airway 31 Pressure Peak Inspiratory Airway 32 Pressure Peak Inspiratory Airway 32 Pressure Peak Inspiratory Airway 32 Pressure Peak Inspiratory Airway 32 Pressure Peak Inspiratory Airway 32 Pressure Peak Inspiratory Airway 30 Pressure Peak Inspiratory Airway 35 Pressure Peak Inspiratory Airway 35 Pressure Peak Inspiratory Airway 36 Pressure Results - Laboratory Findings CBC and BMP: 06/11/17 03:30 06/11/17 03:30 ABG ABG pH 7.39 pH Units (7.32-7.45) 06/11/17 05:58 ABG pCO2 44 mmHg (35-45) 06/11/17 05:58 ABG pO2 75 mmHg (85-104) L 06/11/17 05:58 ABG O2 Saturation 95 % (95-98) 06/11/17 05:58 PT/INR, D-dimer PT 17.8 Seconds (9.4-12.1) H 06/10/17 07:20 Abnormal lab findings: Abnormal lab results RBC 2.70 M/mcL (4.19-5.50) L 06/11/17 03:30 Hgb 8.2 g/dL (12.9-16.9) L 06/11/17 03:30 Hct 24.8 % (37.5-50.1) L 06/11/17 03:30 RDW 16.2 % (11.5-14.5) H 06/11/17 03:30 Plt Count 27 K/mcL (140-400) L* D 06/11/17 03:30 Band Neutrophils % 18.0 % (0-4) H 06/10/17 11:20 Metamyelocytes % 6.0 % (0) H 06/09/17 11:20 Myelocytes % 2.0 % (0) H 06/10/17 11:20 Neutrophils # 10.3 K/mcL (1.6-8.9) H 06/11/17 03:30 Lymphocytes # 0.2 K/mcL (0.6-4.6) L 06/11/17 03:30 Nucleated RBCs/100 WBC 3.1 /100 WBC (0) H 06/11/17 03:30 Reactive Lymphocytes Present (Not Present) A 06/09/17 19:30 Smudge Cells Present (Not Present) A 06/09/17 19:30 Toxic Granulation Present (Not Present) A 06/09/17 19:30 Toxic Vacuolation Present (Not Present) A 06/09/17 19:30 Dohle Bodies Present (Not Present) A 06/09/17 11:20 Platelet Estimate Marked Decrease (Normal) L 06/11/17 03:30 Large Platelets Present (Not Present) A 06/09/17 02:30 Polychromasia 1+ (Not Present) A 06/10/17 17:27 Basophilic Stippling 1+ (Not Present) A 06/09/17 11:20 Anisocytosis 1+ (Not Present) A 06/11/17 03:30 Vincent Cells 1+ (Not Present) A 06/09/17 11:20 PT 17.8 Seconds (9.4-12.1) H 06/10/17 07:20 APTT 46.2 Seconds (26.0-36.0) H 06/09/17 04:00 ABG pO2 75 mmHg (85-104) L 06/11/17 05:58 ABG Total CO2 28 mEq/L (20-26) H 06/11/17 05:58 ABG Hematocrit 37.0 % (37.5-50.1) L 06/07/17 12:07 VBG pO2 254 mmHg (25-50) H 06/09/17 21:47 VBG HCO3 19 mEq/L (21-27) L 06/09/17 21:47 Glucose 178 mg/dL (60-95) H 06/07/17 12:07 Sodium 127 mEq/L (136-145) L 06/11/17 03:30 Chloride 96 mEq/L (98-107) L 06/11/17 03:30 Creatinine 1.41 mg/dL (0.70-1.30) H 06/11/17 03:30 Est GFR (Non-Af Amer) 51 (> 60) L 06/11/17 03:30 POC Glucose 121 (58-89) H 06/10/17 21:42 Calculated Osmolality 265 (280-300) L 06/11/17 03:30 Lactic Acid 3.8 mmol/L (0.5-2.2) H 06/11/17 07:40 Calcium 7.0 mg/dL (8.6-10.3) L 06/11/17 03:30 Venous Ioniz Calcium 0.90 mmol/L (1.15-1.35) L 06/11/17 04:20 Total Bilirubin 1.9 mg/dL (0.3-1.0) H 06/11/17 07:40 Direct Bilirubin 0.9 mg/dL (0.0-0.2) H 06/11/17 07:40 AST 221 Units/L (13-39) H 06/11/17 07:40 Creatine Kinase 1228 Units/L (30-223) H 06/09/17 05:49 Troponin I 0.19 ng/mL (< 0.04) H* 06/09/17 05:49 B-Natriuretic Peptide 346 pg/mL (Less than 100) H 06/08/17 17:15 Serum Total Protein 4.8 g/dL (6.4-8.9) L 06/11/17 07:40 Globulin 1.1 g/dL (2.4-3.5) L 06/11/17 07:40 Albumin/Globulin Ratio 3.4 (1.1-2.2) H 06/11/17 07:40 TSH 16.394 mcIU/mL (0.340-5.600) H 06/08/17 17:15 Arterial Blood Ionized Calcium 0.91 mmol/L (1.15-1.35) L 06/10/17 17:40 - Microbiology Findings Microbiology Findings: Microbiology, Last 48 Hours 06/08/17 19:10 Blood Culture - Preliminary Peripheral Venipuncture No growth. 06/08/17 18:54 Blood Culture - Preliminary Peripheral Venipuncture No growth. 06/08/17 18:45 Urine Culture - Final Urine,[place] No growth. - Clinical Findings Intake & Output: Intake & Output 06/10/17 06/11/17 06/11/17 23:59 07:59 15:59 Intake Total 2602.2 / 2602.2 1772.8 / 1772.8 17.3 / 17.3 Output Total 1338 / 1338 1898 / 1898 270 / 270 Balance 1264.2 / 1264.2 -125.2 / -125.2 -252.7 / -252.7 Weight 100.3 kg - VTE Documentation of Mechanical Device: Intermittent pneumatic compression device Consult Discharge Plan - Plan Referrals: Joni Lora MD [Partnered Physician] - 07/17/17 2:20 pm Arti Thacker MD [Primary Care Provider] - 06/15/17 11:00 am - Attending Attestation I examined this patient and my medical decision-making was reviewed with the Resident Physician. I agree with the documented findings, disposition and treatment plan as described except to the extent set forth below. I examined this patient and my medical decision-making was reviewed with the Resident Physician. I agree with the documented findings, disposition and treatment plan as described except to the extent set forth below. <Dinorah Shah - Last Filed: 06/12/17 08:50> Date of Encounter: 06/12/17 Objective PUL Vital signs: Last Vital Signs Temp 98.1 F 06/11/17 15:00 Pulse 84 06/11/17 18:00 Resp 26 06/11/17 18:00 BP 146/69 06/11/17 18:00 Pulse Ox 92 06/11/17 18:00 Ventilator Settings Ventilator Settings: Ventilator Settings, Last 8 Hours Ventilator Mode VC+ Ventilator Mode VC+ Ventilator Mode VC+ Ventilator Mode VC+ Ventilator Mode VC+ Ventilator Mode VC+ Ventilator Mode VC+ Ventilator Mode A/C Ventilator Mode A/C Ventilator Mode A/C Ventilator Mode A/C Ventilator Tidal Volume 500 Setting Ventilator Tidal Volume 500 Setting Ventilator Tidal Volume 500 Setting Ventilator Tidal Volume 500 Setting Ventilator Tidal Volume 500 Setting Ventilator Tidal Volume 500 Setting Ventilator Tidal Volume 500 Setting Ventilator Tidal Volume 500 Setting Ventilator Tidal Volume 500 Setting Ventilator Tidal Volume 500 Setting Ventilator Tidal Volume 500 Setting Ventilator Respiratory Rate 26 Setting Ventilator Respiratory Rate 26 Setting Ventilator Respiratory Rate 26 Setting Ventilator Respiratory Rate 26 Setting Ventilator Respiratory Rate 26 Setting Ventilator Respiratory Rate 26 Setting Ventilator Respiratory Rate 26 Setting Ventilator Respiratory Rate 26 Setting Ventilator Respiratory Rate 26 Setting Ventilator Respiratory Rate 26 Setting Ventilator Respiratory Rate 26 Setting Actual Respiratory Rate 26 Actual Respiratory Rate 28 Actual Respiratory Rate 28 Actual Respiratory Rate 29 Actual Respiratory Rate 34 Actual Respiratory Rate 26 Actual Respiratory Rate 28 Actual Respiratory Rate 28 Actual Respiratory Rate 32 Actual Respiratory Rate 31 Actual Respiratory Rate 30 Positive End Expiratory 10 Pressure Positive End Expiratory 10 Pressure Positive End Expiratory 10 Pressure Positive End Expiratory 10 Pressure Positive End Expiratory 10 Pressure Positive End Expiratory 10 Pressure Positive End Expiratory 10 Pressure Positive End Expiratory 10 Pressure Positive End Expiratory 10 Pressure Positive End Expiratory 10 Pressure Positive End Expiratory 10 Pressure Peak Inspiratory Airway 33 Pressure Peak Inspiratory Airway 34 Pressure Peak Inspiratory Airway 33 Pressure Peak Inspiratory Airway 38 Pressure Peak Inspiratory Airway 34 Pressure Peak Inspiratory Airway 31 Pressure Peak Inspiratory Airway 32 Pressure Peak Inspiratory Airway 34 Pressure Peak Inspiratory Airway 37 Pressure Peak Inspiratory Airway 31 Pressure Peak Inspiratory Airway 30 Pressure Results - Laboratory Findings CBC and BMP: 06/12/17 02:23 06/12/17 02:23 ABG ABG pH 7.39 pH Units (7.32-7.45) 06/11/17 05:58 ABG pCO2 44 mmHg (35-45) 06/11/17 05:58 ABG pO2 75 mmHg (85-104) L 06/11/17 05:58 ABG O2 Saturation 95 % (95-98) 06/11/17 05:58 PT/INR, D-dimer PT 17.8 Seconds (9.4-12.1) H 06/10/17 07:20 Abnormal lab findings: Abnormal lab results RBC 2.70 M/mcL (4.19-5.50) L 06/11/17 03:30 Hgb 8.2 g/dL (12.9-16.9) L 06/11/17 03:30 Hct 24.8 % (37.5-50.1) L 06/11/17 03:30 RDW 16.2 % (11.5-14.5) H 06/11/17 03:30 Plt Count 15 K/mcL (140-400) L* 06/11/17 13:13 Band Neutrophils % 18.0 % (0-4) H 06/10/17 11:20 Metamyelocytes % 6.0 % (0) H 06/09/17 11:20 Myelocytes % 2.0 % (0) H 06/10/17 11:20 Neutrophils # 10.3 K/mcL (1.6-8.9) H 06/11/17 03:30 Lymphocytes # 0.2 K/mcL (0.6-4.6) L 06/11/17 03:30 Nucleated RBCs/100 WBC 3.1 /100 WBC (0) H 06/11/17 03:30 Reactive Lymphocytes Present (Not Present) A 06/09/17 19:30 Smudge Cells Present (Not Present) A 06/09/17 19:30 Toxic Granulation Present (Not Present) A 06/09/17 19:30 Toxic Vacuolation Present (Not Present) A 06/09/17 19:30 Dohle Bodies Present (Not Present) A 06/09/17 11:20 Platelet Estimate Marked Decrease (Normal) L 06/11/17 03:30 Large Platelets Present (Not Present) A 06/09/17 02:30 Polychromasia 1+ (Not Present) A 06/10/17 17:27 Basophilic Stippling 1+ (Not Present) A 06/09/17 11:20 Anisocytosis 1+ (Not Present) A 06/11/17 03:30 Vincent Cells 1+ (Not Present) A 06/09/17 11:20 PT 17.8 Seconds (9.4-12.1) H 06/10/17 07:20 APTT 46.2 Seconds (26.0-36.0) H 06/09/17 04:00 ABG pO2 75 mmHg (85-104) L 06/11/17 05:58 ABG Total CO2 28 mEq/L (20-26) H 06/11/17 05:58 ABG Hematocrit 37.0 % (37.5-50.1) L 06/07/17 12:07 VBG pH 7.47 pH Units (7.32-7.42) H 06/11/17 18:44 VBG pCO2 31 mmHg (41-51) L 06/11/17 18:35 VBG pO2 222 mmHg (25-50) H 06/11/17 18:35 Glucose 178 mg/dL (60-95) H 06/07/17 12:07 Sodium 127 mEq/L (136-145) L 06/11/17 03:30 Chloride 96 mEq/L (98-107) L 06/11/17 03:30 Creatinine 1.41 mg/dL (0.70-1.30) H 06/11/17 03:30 Est GFR (Non-Af Amer) 51 (> 60) L 06/11/17 03:30 POC Glucose 121 (58-89) H 06/10/17 21:42 Calculated Osmolality 265 (280-300) L 06/11/17 03:30 Lactic Acid 3.8 mmol/L (0.5-2.2) H 06/11/17 07:40 Calcium 7.0 mg/dL (8.6-10.3) L 06/11/17 03:30 Venous Ioniz Calcium 0.93 mmol/L (1.15-1.35) L 06/11/17 18:44 Total Bilirubin 1.9 mg/dL (0.3-1.0) H 06/11/17 07:40 Direct Bilirubin 0.9 mg/dL (0.0-0.2) H 06/11/17 07:40 AST 221 Units/L (13-39) H 06/11/17 07:40 Creatine Kinase 1228 Units/L (30-223) H 06/09/17 05:49 Troponin I 0.19 ng/mL (< 0.04) H* 06/09/17 05:49 B-Natriuretic Peptide 346 pg/mL (Less than 100) H 06/08/17 17:15 Serum Total Protein 4.8 g/dL (6.4-8.9) L 06/11/17 07:40 Globulin 1.1 g/dL (2.4-3.5) L 06/11/17 07:40 Albumin/Globulin Ratio 3.4 (1.1-2.2) H 06/11/17 07:40 TSH 16.394 mcIU/mL (0.340-5.600) H 06/08/17 17:15 Arterial Blood Ionized Calcium 0.91 mmol/L (1.15-1.35) L 06/10/17 17:40 - Microbiology Findings Microbiology Findings: Microbiology, Last 48 Hours 06/08/17 19:10 Blood Culture - Preliminary Peripheral Venipuncture No growth. 06/08/17 18:54 Blood Culture - Preliminary Peripheral Venipuncture No growth. 06/08/17 18:45 Urine Culture - Final Urine,[place] No growth. - Clinical Findings Intake & Output: Intake & Output 06/11/17 06/11/17 06/11/17 07:59 15:59 23:59 Intake Total 1772.8 / 1772.8 1861.0 / 1861.0 432 / 432 Output Total 1898 / 1898 1594 / 1594 600 / 600 Balance -125.2 / -125.2 267.0 / 267.0 -168 / -168 Weight 100.3 kg 105.3 kg - Attending Attestation I saw and evaluated this patient and my medical decision-making was reviewed with the Resident Physician. I agree with the documented findings, disposition and treatment plan as described except to the extent set forth below. We independently had [id number] contact with the patient I spent of 33 minutes of Critical Care time with this patient. It involved decision making of high complexity to assess, manipulate, and support vital organ system failure and/or to prevent further life threatening deterioration of the patient's condition. The time involved in the performance of separately reportable procedures was not counted toward critical care time. Patient seen and examined at bedside Labs, radiology, chart personally reviewed. 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 FEN-GI:Patient will be put on TPN as according to surgery we cannot use the Gut. Renal:Acute kidney Injury on CVVH ID:No growth in cultures to date will start descalating antibiotics Heme/Onc:Thrombocytopenia can be due to sepsis will keep platelets more than 20, 000 there is no active bleeding Endo: Glucose Monitored Integ/MSK: Skin Care per routine ICU Nursing Protocol to prevent ulcers. Lines: All lines examined without evidence of infection : Dispo: Critically ill overall poor prognosis CODE:[id number]
[2017-06-11] MEDS: Fluticasone Propionate Nasal 50 MCG/SPRAY BOTTLE NS SCH (09:37)
[2017-06-11] MEDS: EPINEPHRINE IVC SCH (10:28)
[2017-06-11] MEDS: D5 IVC SCH (10:28)
[2017-06-11] MEDS: WATER IVC SCH (10:28)
--- NOTE | 2017-06-11 11:48 | Nephrology Progress Note ---
Date of Encounter: 06/11/17 Time of Encounter: 11:30 - Assessment and Plan (1) RUBY (acute kidney injury) Current Visit: Yes Status: Acute RUBY/hyperkalemia in setting of respiratory failure, shock. Continue CVVH. Will obtain renal us to r/o obstructive uropathy, currently held due to patient instability. Continue to monitor. Subjective Principal diagnosis: Septic shock, respiratory failure Interval history: Intubated, sedated, paralytic.CVVH. Objective - Vital Signs Vital signs: Vital Signs Temp Pulse Resp BP Pulse Ox 06/11/17 11:25 31 91 06/11/17 11:00 101 30 84/49 91 06/11/17 10:00 84 28 93/52 94 06/11/17 09:34 98.4 F 94 28 81/59 06/11/17 09:00 89 28 120/65 95 06/11/17 08:00 98.4 F 90 26 84/54 96 06/11/17 07:44 28 96 06/11/17 07:00 100 32 82/53 96 06/11/17 06:00 89 26 88/53 96 06/11/17 05:57 97.7 F 98 26 88/53 96 06/11/17 05:00 100 28 74/49 96 06/11/17 04:00 97.7 F 92 26 86/54 96 06/11/17 03:20 28 96 06/11/17 03:00 84 28 84/54 95 06/11/17 02:00 96 26 91/55 95 06/11/17 01:50 26 95 06/11/17 01:00 91 26 103/59 95 06/11/17 00:00 96 32 93/53 92 06/10/17 23:43 34 93 06/10/17 23:00 97.9 F 92 28 90/52 97 06/10/17 22:52 92 06/10/17 22:00 97.7 F 100 26 78/49 96 06/10/17 21:28 28 97 06/10/17 21:00 95 30 92/53 96 06/10/17 20:00 96.4 F L 99 30 114/61 97 06/10/17 19:55 30 97 06/10/17 19:45 97.4 F L 85 26 112/60 98 06/10/17 19:09 97.4 F L 85 26 83/47 98 06/10/17 19:07 84 26 71/44 96 06/10/17 19:00 86 06/10/17 18:10 84 36 86/44 94 06/10/17 17:27 92 30 98/45 95 06/10/17 17:23 96.5 F L 92 33 96/46 95 06/10/17 17:08 96.9 F L 87 30 95/48 95 06/10/17 17:03 30 100/50 94 06/10/17 16:28 28 100/49 95 06/10/17 16:07 90 28 89/47 556 06/10/17 15:37 96.9 F L 86 31 93/51 95 06/10/17 14:29 28 92 06/10/17 14:04 84 26 85/44 92 06/10/17 13:00 85 26 97/46 92 06/10/17 12:26 96.5 F L 86 26 87/45 94 06/10/17 12:04 96.5 F L 86 26 87/45 94 Intake and Output 06/10/17 06/11/17 06/11/17 23:59 07:59 15:59 Intake Total 2602.2 / 2602.2 1772.8 / 1772.8 661.2 / 661.2 Output Total 1338 / 1338 1898 / 1898 594 / 594 Balance 1264.2 / 1264.2 -125.2 / -125.2 67.2 / 67.2 Intake: IV Fluids 1852.2 / 1852.2 1772.8 / 1772.8 411.2 / 411.2 PrismaSATE BGK 4/2.5 5,000 ML @ 0 / 0 0 / 0 0 / 0 2000 mls/hr CRRT CONT [facility] Rx#: [id number] Vasostrict 40 UNIT In 0.9 % 0 / 0 Sodium Chloride 100 ML @ 0.03 UNIT/MIN 4.59 mls/hr IV . [id number] [facility] Rx#:[id number] Atracurium 250 MG In 0.9 % 0 / 0 Sodium Chloride 225 ML @ 5 MCG/ KG/MIN 21.48 mls/hr IVC CONT [facility] Rx#:[id number] DOPamine Premix 400mg/250mL 400 149.5 / 149.5 158.0 / 158.0 11 / 11 mg In 250 ml @ 5 MCG/KG/MIN 17 .063 mls/hr IVC .[id number] [facility] Rx #:[id number] PRECEDEX Premix 400 mcg In 100 125.9 / 125.9 130.1 / 130.1 69.9 / 69.9 ml @ 0.2 MCG/KG/HR 3.58 mls/hr IVC .Q24H [facility] Rx#:[id number] Dextrose 50% (Vial) 50 ML In D5 290.1 / 290.1 458.9 / 458.9 94 / 94 % And 0.2% Nacl 500 Ml Bag 500 ML @ 50 mls/hr IVC .Q11H [facility] Rx #:[id number] FentaNYL (PF) 1,000 MCG In 0.9 156.8 / 156.8 43.2 / 43.2 % Sodium Chloride 80 ML @ 50 MCG/HR 5 mls/hr IVC CONT [facility] Rx #:[id number] FentaNYL (PF) 3,000 MCG In 0.9 122.7 / 122.7 45.3 / 45.3 % Sodium Chloride 240 ML @ 50 MCG/HR 5 mls/hr IVC CONT [facility] Rx #:[id number] Levophed 8 MG In Dextrose 5% 670.1 / 670.1 489.9 / 489.9 81 / 81 500 ML @ 5 MCG/MIN 19.05 mls/hr IVC CONT [facility] Rx#:[id number] Merrem 1,000 MG In Water for inj. (sterile) 10 ML @ 200 mls/ hr IVP Q12HR [facility] Rx#:[id number] Flexbumin 25 gm In 100 ml @ 60 132.1 / 132.1 300 / 300 mls/hr IVPB Q6HR [facility] Rx#: [id number] Calcium Gluconate 1,000 MG In 0 67.7 / 67.7 60 / 60 60 / 60 .9 % Sodium Chloride 50 ML @ 111 mls/hr IVPB Q6HR PRN Rx#: [id number] Magnesium Sulfate Premix 2gm/ 50 / 50 50mL 2 gm In 50 ml @ 50 mls/hr IVPB Q6H PRN Rx#:[id number] Vancocin 1,000 MG In Dextrose 5 250 / 250 % 250 ML @ 167 mls/hr IVPB Q24H [facility] Rx#:[id number] Oral 0 / 0 0 / 0 0 / 0 Blood Product 750 / 750 0 / 0 250 / 250 Platelet Pheresis Lp Irr 2nd 300 / 300 Unit [id number] Platelet Pheresis Lp Irr 3rd 0 / 0 250 / 250 Unit [id number] Platelet Pheresis Lp Irr 3rd 450 / 450 Unit [id number] Output: Urine Becka 1327 / 1327 1888 / 1888 594 / 594 Catheter 0 / 0 Other: Weight 100.3 kg 105.3 kg Blood Glucose* 78 79 Patient Weight 06/11/17 23:59 Weight 105.3 kg - General Appearance General appearance: Present: well-developed, well-nourished, appears started age EENT: Present: mucous membranes moist Neck: Present: no JVD Respiratory: Present: rhonchi Additional Comments: using accessory muscles Cardiology: Present: edema, regular rate, regular rhythm Additional Comments: mild generalized Gastrointestinal: Present: absent bowel sounds - Lab 06/11/17 03:30 06/11/17 03:30 Most recent lab results ABG pH 7.39 pH Units (7.32-7.45) 06/11/17 05:58 ABG pCO2 44 mmHg (35-45) 06/11/17 05:58 ABG pO2 75 mmHg (85-104) L 06/11/17 05:58 ABG HCO3 26 mEq/L (21-27) 06/11/17 05:58 ABG O2 Saturation 95 % (95-98) 06/11/17 05:58 Calcium 7.0 mg/dL (8.6-10.3) L 06/11/17 03:30 Phosphorus 3.1 mg/dL (2.7-4.5) 06/11/17 01:34 Magnesium 1.8 mg/dL (1.6-2.6) 06/11/17 03:30 - VTE Documentation of Mechanical Device: Intermittent pneumatic compression device Consult Discharge Plan - Plan Referrals: Joni Lora MD [Partnered Physician] - 07/17/17 2:20 pm Arti Thacker MD [Primary Care Provider] - 06/15/17 11:00 am
[2017-06-11] MEDS ORDERED: D10% in Water 500 ML IVC PRN (12:05)
[2017-06-11] MEDS: *HR* Midazolam HCl 2 MG/2 ML VIAL IVP PRN ×3 (12:54→20:43)
[2017-06-11 13:29] LABS: VBG HCO3 22 mEq/L (21-27); VBG Ionized Calcium 0.92 mmol/L (1.15-1.35); VBG PCO2 36 mmHg (41-51); VBG PO2 261 mmHg (25-50)
[2017-06-11] MEDS: FentaNYL (PF) 2,500 MCG in EMPTY BAG 1 EACH IVC SCH ×2 (13:59→21:04)
[2017-06-11] MEDS: Norepinephrine 8 MG in D5% in Water 250 ML IVC SCH ×2 (14:04→18:42)
--- NOTE | 2017-06-11 14:14 | Palliative - Consult Note ---
<Karson Siddiqui - Last Filed: 06/11/17 14:05> Date of Encounter: 06/11/17 Time of Encounter: 13:25 - Assessment and Plan (1) Goals of care, counseling/discussion Current Visit: Yes Status: Acute Assessment and plan: Patient's current code status is DNR-Comfort Care Arrest. The patient's son, daughter in law, and sister is at bedside. Per Family, the patient has not completed any paperwork for a medical power of patent attorney. According to the son, the patient has two other daughters as well. The son stated that the patient was currently living with him and his at home. The family states that they are unsure of the patient's exact wishes, but they all agree that the patient verbally stated that he "doesn't want to be on life support forever." They all also agree that the patient would not believe "this is quality of life. " and believe that the patient would NOT want a tracheostomy or a feeding tube. The patient is currently intubated and is receiving CVVH at this time. Patient was on four pressors over the weekend, and he is currently on one to maintain his blood pressure. When or if the time comes, the family would be open to compassionate extubation. Family is optimistic and hopeful that the patient will improve since he was started on 4 pressors over the weekend and is now on one pressor. Palliative time will continue to follow. (2) S/P aorto-bifemoral bypass surgery Current Visit: Yes Status: Acute Assessment and plan: Vascular surgery team is following the patient. (3) Shock Current Visit: Yes Status: Acute Assessment and plan: Patient continues to be on pressors. Continue plan per treatment team. (4) RUBY (acute kidney injury) Current Visit: Yes Status: Acute Assessment and plan: Patient is currently on Continuous Veno-Venous Hemofiltration. Nephrology is following the patient. Continue plan per treatment team. (5) Acute respiratory failure Current Visit: Yes Status: Acute Assessment and plan: Patient is sedated and intubated. Continue plan per treatment team. Qualifiers: Respiratory failure complication: hypoxia Qualified Code(s): J96.01 - Acute respiratory failure with hypoxia Palliative-CN HPI - Data of Consult Requesting Physician: Joni Lora MD Primary Care Provider: Arti Thacker, - Consult Narrative History of present illness: Mr. Ramirez is a 66 year old male with the past medical history of diabetes, CAD , atrial fibrillation, and peripheral vascular disease who presented to [facility] for an elective aortobifemoral artery bypass on 06/07/2017. Per documentation, the patient became very short of breath and tachypneic on post operative day 1. The patient was subsequently placed on BiPAP and continued to deteriorate and became hypotensive. The patient was intubated and a central line was placed at bedside due to hypotension. Per documentation, the patient was on four pressors over the weekend. The patient is currently on one processor to maintain his blood pressure and he is currently receiving continuous Veno- Venous Hemofiltration. Family is at bedside at this time, including the patient' s son, daughter in law, and sister. Palliative team was consulted to discuss goals of care with the family. Patient's current code status is DNR-Comfort Care Arrest. CC: Joni Lora MD Past Med Surg Social Fam HX - Past Medical History Medical history: arthritis, atrial fibrillation, cancer, diabetes, hypertension Psychiatric history: anxiety, depression - Past Surgical History Surgical History: coronary bypass (CABG) - Social History Smoking Status: Current every day smoker Packs per day: 2 Smokeless Tobacco Status: No Alcohol use: occasionally Drug use: none Medications and Allergies Aspirin Enteric Coated [Aspirin EC] 81 mg PO DAILY 11/24/15 [History] Cholecalciferol (D-3) [Vitamin D] 2,000 unit PO BID 11/24/15 [History] Fluticasone Propionate Nasal [Flonase] 1 spr NS DAILY 11/24/15 [History] Isosorbide MONOnitrate (24 HR) [Imdur] 30 mg PO DAILY 11/24/15 [History] Loratadine [Claritin] 10 mg PO DAILY 11/24/15 [History] Losartan [Cozaar] 25 mg PO DAILY 11/24/15 [History] Montelukast [Singulair] 10 mg PO HS 11/24/15 [History] Rivaroxaban [Xarelto] 20 mg PO DAILY 11/24/15 [History] Sotalol HCl [Betapace] 120 mg PO BID 11/24/15 [History] Zolpidem [Ambien] 10 mg PO HS PRN 11/24/15 [History] clonazePAM [Klonopin] 1 mg PO BID 11/24/15 [History] Docusate [Colace] 100 mg PO BID 06/07/17 [History] Levothyroxine [Synthroid] 100 mcg PO 0630 06/07/17 [History] Morphine Immed Rel [Morphine Sulfate] 15 mg PO Q8H PRN 06/07/17 [History] Omeprazole [PriLOSEC] 40 mg PO BID 06/07/17 [History] Ondansetron [Zofran] 8 mg PO Q8H PRN 06/07/17 [History] OxyCODONE/APAP 7.5/325 [Percocet 7.5/325 MG] 1 each PO Q6H PRN 06/07/17 [History ] Simvastatin [Zocor] 20 mg PO HS 06/07/17 [History] Venlafaxine HCl [Venlafaxine HCl ER] 225 mg PO DAILY 06/07/17 [History] 3 Allergy/AdvReac Type Severity Reaction Status Date / Time fentanyl AdvReac See Verified 06/07/17 07:41 Comments NSAIDS (Non-Steroidal AdvReac Nausea Verified 06/07/17 07:41 Anti-Inflamma ROS unobtainable: due to endotracheal tube Palliative Care-Exam - Constitutional Vitals: Temp Pulse Resp BP Pulse Ox 98.4 F 101 26 96/52 91 06/11/17 09:34 06/11/17 14:00 06/11/17 14:00 06/11/17 14:00 06/11/17 14:00 General appearance: Present: obese Exam: The patient is intubated and remains on pressors. Patient is currently receiving CVVH. Patient is resting comfortably with family at bed side. - Head Head Exam: Present: atraumatic - Eye Eye exam: Present: normal appearance, PERRL - ENT ENT exam: Present: mucous membranes dry - Neck Neck exam: Absent: lymphadenopathy Additional comments: Mahurkar line for HD in the left IJ. Central line is in the right IJ. - Respiratory Respiratory exam: Present: CTAB. Absent: rales, rhonchi, wheezes Additional comments: Patient is intubated. - Cardiovascular Cardiovascular exam: Present: RRR, +S1, +S2. Absent: bradycardia, diastolic murmur, gallop, irregular rhythm, systolic murmur Additional comments: Patient's systolic blood pressure are running in the 80s. - GI/Abdominal Exam GI/Abdominal exam: Present: distended, soft additional comments: Surgical incisions are clean, dry and intact. - External exam: Present: swelling Catheter Type: Urethral (Hyman) - Extremities Exam Extremities exam: Present: pedal edema Additional comments: Pedal edema bilaterally. +2 pitting edema in bilateral lower extremities. Bilateral upper extremities are swollen. Pedal pulses are +1/4 bilaterally. - Neurological Exam Additional comments: Patient is intubated. - Skin Skin exam: Present: dry, intact Internal Medicine - CN: Reslt - Labs CBC & Chem 7: 06/11/17 03:30 06/11/17 03:30 Labs: Short CBC 06/10/17 06/10/17 06/11/17 Range/Units 17:27 22:37 03:30 WBC 8.4 10.6 11.1 (4.3-11.1) K/mcL Hgb 8.9 L 8.2 L 8.2 L (12.9-16.9) g/dL Hct 27.2 L 24.9 L 24.8 L (37.5-50.1) % Plt Count 14 L* 62 L D 27 L* D (140-400) K/mcL Neutrophils # 7.6 9.6 H 10.3 H (1.6-8.9) K/mcL BMP 06/10/17 06/10/17 06/11/17 17:30 23:30 01:34 Sodium 127 L 129 L 126 L Potassium 4.4 4.7 4.6 Chloride 97 L 97 L 96 L Carbon Dioxide 21 L 20 L 23 BUN 19 18 18 Creatinine 1.46 H 1.44 H 1.39 H Glucose 69 L 84 79 Calcium 6.7 L 6.8 L 6.9 L 06/11/17 03:30 Sodium 127 L Potassium 4.6 Chloride 96 L Carbon Dioxide 24 BUN 18 Creatinine 1.41 H Glucose 75 Calcium 7.0 L Liver Function 06/11/17 Range/Units 07:40 Total Bilirubin 1.9 H (0.3-1.0) mg/dL Direct Bilirubin 0.9 H (0.0-0.2) mg/dL AST 221 H (13-39) Units/L ALT 26 (7-52) Units/L Alkaline Phosphatase 65 (34-104) Units/L Albumin 3.7 (3.5-5.7) g/dL - ABG Interpretation ABG results: ABG ABG pH 7.39 pH Units (7.32-7.45) 06/11/17 05:58 ABG pCO2 44 mmHg (35-45) 06/11/17 05:58 ABG pO2 75 mmHg (85-104) L 06/11/17 05:58 ABG O2 Saturation 95 % (95-98) 06/11/17 05:58 PT/INR, D-dimer PT 17.8 Seconds (9.4-12.1) H 06/10/17 07:20 - Impressions Impressions Echocardiogram 06/09/17 05:12 Impressions: Technically challenging windows - patient supine on ventilator. LVEF 60-65%. Indeterminate diastolic function. RV is normal in size. Function appears mildly reduced. Mild mitral regurgitation. Mild tricuspid regurgitation. Mild pulmonary hypertension by TR gradient, 36 mmHg. Aortic root appears normal in size. Parts of the aortic root and ascending aorta are not well visualized. Left Ventricular Wall Motion: Rest Echo Findings The apical anterior, mid anterior, basal anterior, mid anterior septal, mid inferior lateral, basal anterior septal and basal inferior lateral ho were not visualized. All other wall segments showed normal motion. Findings: Study Quality * Technically challenging windows - patient supine on ventilator. ECG Findings * Probably sinus rhythm with ectopy. Left Ventricle * Normal LV size. Wall thickness measurements are not well taken. * LVEF 60-65%. * Indeterminate diastolic function. Right Ventricle * RV is normal in size. Function appears mildly reduced. Left Atrium * Normal left atrial size. Right Atrium * Normal right atrial size. Aortic Valve * Aortic valve not well visualized. * No aortic stenosis. * Trace aortic regurgitation. Mitral Valve * Mildly calcified mitral valve leaflets. * No mitral stenosis. * Mild mitral regurgitation. Tricuspid Valve * Tricuspid valve not well visualized. * Mild tricuspid regurgitation. Pulmonic Valve * Pulmonic valve is not well visualized. * No pulmonic stenosis. * No pulmonic regurgitation. Pulmonary Artery * Pulmonary artery not well visualized. Aorta * Aortic root appears normal in size. Parts of the aortic root and ascending aorta are not well visualized. Pericardium * There is no pericardial effusion present. Interatrial Septum * Interatrial septum not well evaluated. IVC * The IVC is not well evaluated - patient on mechanical ventilation. Consult Discharge Plan - Plan Referrals: Joni Lora MD [Partnered Physician] - 07/17/17 2:20 pm Arti Thacker MD [Primary Care Provider] - 06/15/17 11:00 am Palliative Quality Palliative Quality: Screen for Code Status: Yes, Screen for Goals of Care: Yes, Screen for Pain: NA, If Pain Regimen Started, Initiate Bowel Regimen: NA, Screen for Nausea/Vomitting: NA Code Status: 06/09/17 07:48 CODE [Resuscitation Status: Active] [RES] Routine Comment: Resuscitation Status: DNR-Comfort Care-Arrest <Pérez Diaz Dylan - Last Filed: 06/11/17 15:09> Date of Encounter: 06/11/17 Palliative-CN HPI - Data of Consult Requesting Physician: Joni Lora MD Primary Care Provider: Arti Thacker, - Consult Narrative History of present illness: Mr. Ramirez is a 66 year old male CC: Joni Lora MD Palliative Care-Exam - Constitutional Vitals: Temp Pulse Resp BP Pulse Ox 98.4 F 101 26 96/52 91 06/11/17 09:34 06/11/17 14:00 06/11/17 14:00 06/11/17 14:00 06/11/17 14:00 Internal Medicine - CN: Reslt - Labs CBC & Chem 7: 06/11/17 13:13 06/11/17 03:30 Labs: Short CBC 06/10/17 06/10/17 06/11/17 Range/Units 17:27 22:37 03:30 WBC 8.4 10.6 11.1 (4.3-11.1) K/mcL Hgb 8.9 L 8.2 L 8.2 L (12.9-16.9) g/dL Hct 27.2 L 24.9 L 24.8 L (37.5-50.1) % Plt Count 14 L* 62 L D 27 L* D (140-400) K/mcL Neutrophils # 7.6 9.6 H 10.3 H (1.6-8.9) K/mcL 06/11/17 Range/Units 13:13 WBC (4.3-11.1) K/mcL Hgb (12.9-16.9) g/dL Hct (37.5-50.1) % Plt Count 15 L* (140-400) K/mcL Neutrophils # (1.6-8.9) K/mcL BMP 06/10/17 06/10/17 06/11/17 17:30 23:30 01:34 Sodium 127 L 129 L 126 L Potassium 4.4 4.7 4.6 Chloride 97 L 97 L 96 L Carbon Dioxide 21 L 20 L 23 BUN 19 18 18 Creatinine 1.46 H 1.44 H 1.39 H Glucose 69 L 84 79 Calcium 6.7 L 6.8 L 6.9 L 06/11/17 03:30 Sodium 127 L Potassium 4.6 Chloride 96 L Carbon Dioxide 24 BUN 18 Creatinine 1.41 H Glucose 75 Calcium 7.0 L Liver Function 06/11/17 Range/Units 07:40 Total Bilirubin 1.9 H (0.3-1.0) mg/dL Direct Bilirubin 0.9 H (0.0-0.2) mg/dL AST 221 H (13-39) Units/L ALT 26 (7-52) Units/L Alkaline Phosphatase 65 (34-104) Units/L Albumin 3.7 (3.5-5.7) g/dL - ABG Interpretation ABG results: ABG ABG pH 7.39 pH Units (7.32-7.45) 06/11/17 05:58 ABG pCO2 44 mmHg (35-45) 06/11/17 05:58 ABG pO2 75 mmHg (85-104) L 06/11/17 05:58 ABG O2 Saturation 95 % (95-98) 06/11/17 05:58 PT/INR, D-dimer PT 17.8 Seconds (9.4-12.1) H 06/10/17 07:20 - Impressions Impressions Echocardiogram 06/09/17 05:12 Impressions: Technically challenging windows - patient supine on ventilator. LVEF 60-65%. Indeterminate diastolic function. RV is normal in size. Function appears mildly reduced. Mild mitral regurgitation. Mild tricuspid regurgitation. Mild pulmonary hypertension by TR gradient, 36 mmHg. Aortic root appears normal in size. Parts of the aortic root and ascending aorta are not well visualized. Left Ventricular Wall Motion: Rest Echo Findings The apical anterior, mid anterior, basal anterior, mid anterior septal, mid inferior lateral, basal anterior septal and basal inferior lateral ho were not visualized. All other wall segments showed normal motion. Findings: Study Quality * Technically challenging windows - patient supine on ventilator. ECG Findings * Probably sinus rhythm with ectopy. Left Ventricle * Normal LV size. Wall thickness measurements are not well taken. * LVEF 60-65%. * Indeterminate diastolic function. Right Ventricle * RV is normal in size. Function appears mildly reduced. Left Atrium * Normal left atrial size. Right Atrium * Normal right atrial size. Aortic Valve * Aortic valve not well visualized. * No aortic stenosis. * Trace aortic regurgitation. Mitral Valve * Mildly calcified mitral valve leaflets. * No mitral stenosis. * Mild mitral regurgitation. Tricuspid Valve * Tricuspid valve not well visualized. * Mild tricuspid regurgitation. Pulmonic Valve * Pulmonic valve is not well visualized. * No pulmonic stenosis. * No pulmonic regurgitation. Pulmonary Artery * Pulmonary artery not well visualized. Aorta * Aortic root appears normal in size. Parts of the aortic root and ascending aorta are not well visualized. Pericardium * There is no pericardial effusion present. Interatrial Septum * Interatrial septum not well evaluated. IVC * The IVC is not well evaluated - patient on mechanical ventilation. Chest X-Ray 06/11/17 14:37 IMPRESSION: Line and tube placements. Bilateral pleural effusions with multifocal infection or asymmetric edema. D/ / Anibal Galloway MD / Anibal Galloway MD Interpreting Provider: Anibal Galloway MD - Attending Attestation I examined this patient and my medical decision-making was reviewed with the Resident Physician. I agree with the documented findings, disposition and treatment plan as described except to the extent set forth below. Palliative Quality Code Status: 06/09/17 07:48 CODE [Resuscitation Status: Active] [RES] Routine Comment: Resuscitation Status: DNR-Comfort Care-Arrest
[2017-06-11] MEDS: *HR* LORazepam 2 MG/ML VIAL IVP PRN (14:25)
--- NOTE | 2017-06-11 15:27 | Procedure Note ---
<Alex Duff S - Last Filed: 06/11/17 17:12> Date of procedure: 06/11/17 Pre-op diagnosis: Respiratory failure Post-op diagnosis: same Was there an data entry assistant present: Yes [employer] Servicer: Dinorah Shah Estimated blood loss (cc): 0 Specimen: None Pathology: none sent Condition: critical Disposition: ICU <Dinorah Shah - Last Filed: 06/12/17 20:14> Procedure: I was present with the resident physician for the entire procedure of tube exchange which was done under direct visualization with Jellynote video laryngoscope with the help of bougie
[2017-06-11] MEDS ORDERED: 0.9 % Sodium Chloride 250 ML ONE (15:42)
[2017-06-11] MEDS ORDERED: 0.9 % Sodium Chloride 500 ML ONE (15:42)
[2017-06-11] MEDS ORDERED: Clinimix E 5%-20% SOLUTION 2,000 ML with MVI, adult with vitamin K 10 ML IVC SCH (17:00)
[2017-06-11 18:22] LABS: VBG HCO3 23 mEq/L (21-27); VBG PCO2 39 mmHg (41-51); VBG PH 7.38 pH Units (7.32-7.42); VBG PO2 258 mmHg (25-50)
[2017-06-11 18:40] LABS: VBG HCO3 21 mEq/L (21-27); VBG PCO2 31 mmHg (41-51); VBG PH 7.44 pH Units (7.32-7.42); VBG PO2 222 mmHg (25-50)
[2017-06-11 18:46] LABS: VBG Ionized Calcium 0.93 mmol/L (1.15-1.35); VBG PH 7.47 pH Units (7.32-7.42)
--- NOTE | 2017-06-11 20:28 | Vascular/[facility] Progress Note ---
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 He remains sedated and intubated. He is afebrile, his WBC is normal and he remains on antibiotics. He continues to wean from pressors. He remains nearly anuric. NO significant GI function today. Continue with NPO and NGT. Patient was discussed with his daughter. Qualifiers: Peripheral atherosclerosis artery type: bypass graft, nonbiological Lower extremity ulceration location: heel Qualified Code(s): I70.634 - Atherosclerosis of nonbiological bypass graft(s) of the right leg with ulceration of heel and midfoot; I70.644 - Atherosclerosis of nonbiological bypass graft(s) of the left leg with ulceration of heel and midfoot; I70.644 - Atherosclerosis of nonbiological bypass graft(s) of the left leg with ulceration of heel and midfoot; I70.644 - Atherosclerosis of nonbiological bypass graft(s) of the left leg with ulceration of heel and midfoot; I70.644 - Atherosclerosis of nonbiological bypass graft(s) of the left leg with ulceration of heel and midfoot; I70.644 - Atherosclerosis of nonbiological bypass graft(s) of the left leg with ulceration of heel and midfoot; I70.644 - Atherosclerosis of nonbiological bypass graft(s) of the left leg with ulceration of heel and midfoot (2) Hypertension Current Visit: Yes Status: Chronic Qualifiers: Hypertension type: essential hypertension Qualified Code(s): I10 - Essential (primary) hypertension (3) Atrial fibrillation Current Visit: Yes Status: Chronic Qualifiers: Atrial fibrillation type: paroxysmal Qualified Code(s): I48.0 - Paroxysmal atrial fibrillation (4) CAD (coronary artery disease) Current Visit: Yes Status: Chronic Qualifiers: Coronary Disease-Associated Artery/Lesion type: [place] artery [place] vs. transplanted heart: [place] heart Associated angina: without angina Qualified Code(s): I25.10 - Atherosclerotic heart disease of [place] coronary artery without angina pectoris (5) Hyperlipidemia Current Visit: Yes Status: Chronic Qualifiers: Hyperlipidemia type: mixed hyperlipidemia Qualified Code(s): E78.2 - Mixed hyperlipidemia (6) Tobacco abuse Current Visit: Yes Status: Acute Nicotine patch - Subjective Interval history: He remains sedated and intubated. No acute events overnight. Vital Signs, Last 4 Hours Temp Pulse Resp BP Pulse Ox 06/11/17 20:00 97.5 F L 85 27 113/62 94 06/11/17 19:50 26 117/62 94 06/11/17 19:42 90 06/11/17 19:00 87 30 93/54 94 06/11/17 18:00 84 26 146/69 92 06/11/17 17:00 98 28 82/50 94 06/11/17 16:48 26 94 - Physical Examination HEENT: Present: Pupils equal Cardiac: Present: Reg Rate and Rhythm Lungs: Present: Decreased breath sounds Vascular: Present: Normal capillary refill, Pulse, normal (pedal signals polyphasic), Surgical incisions (incisions clean and dry without erythema or drainage). Absent: Cyanosis Abdomen: Present: Soft, Other (few bowel sounds) - VTE Documentation of Mechanical Device: Intermittent pneumatic compression device Results 06/11/17 13:13 06/11/17 03:30 Lab Results, Last 24 hours 06/10/17 06/10/17 06/11/17 22:37 23:30 01:34 WBC 10.6 Hgb 8.2 L Hct 24.9 L Plt Count 62 L D Sodium 129 L 126 L Potassium 4.7 4.6 Chloride 97 L 96 L Carbon Dioxide 20 L 23 BUN 18 18 Creatinine 1.44 H 1.39 H Glucose 84 79 Calcium 6.8 L 6.9 L Magnesium 1.8 1.9 Total Bilirubin AST ALT Alkaline Phosphatase 06/11/17 06/11/17 06/11/17 03:30 03:30 03:30 WBC 11.1 Hgb 8.2 L Hct 24.8 L Plt Count 27 L* D Sodium 127 L Potassium 4.6 Chloride 96 L Carbon Dioxide 24 BUN 18 Creatinine 1.41 H Glucose 75 Calcium 7.0 L Magnesium 1.8 Total Bilirubin AST ALT Alkaline Phosphatase 06/11/17 06/11/17 06/11/17 07:40 13:13 13:13 WBC Hgb Hct Plt Count 15 L* Sodium Potassium Chloride Carbon Dioxide BUN Creatinine Glucose Calcium Magnesium 2.0 Total Bilirubin 1.9 H AST 221 H ALT 26 Alkaline Phosphatase 65 Consult Discharge Plan - Plan Referrals: Manazer,Joni Michael, MD [Partnered Physician] - 07/17/17 2:20 pm Arti Thacker MD [Primary Care Provider] - 06/15/17 11:00 am
[2017-06-11 23:48] LABS: VBG PH 7.28 pH Units (7.32-7.42)
[2017-06-12] MEDS: PrismaSATE BGK 4/2.5 5,000 ML CRRT SCH ×3 (00:40→06:36)
[2017-06-12] MEDS: Dexmedetomidine HCl 400 MCG/100 ML MLS IVC SCH ×3 (01:10→10:24)
[2017-06-12] MEDS: *HR* Midazolam HCl 2 MG/2 ML VIAL IVP PRN ×2 (01:11→04:16)
[2017-06-12] MEDS: Norepinephrine 8 MG in D5% in Water 250 ML IVC SCH ×3 (01:11→10:17)
[2017-06-12 02:26] LABS: Hemoglobin 8.6 g/dL (12.9-16.9)
[2017-06-12 02:28] LABS: Basophils # 0.1 K/mcL (0.0-0.2); Basophils % 0.4 %; Eosinophils # 0.4 K/mcL (0.0-0.6); Eosinophils % 2.2 %; Immature Granulocytes % 0.9 % (0-4); Immature Platelets 8.7 % (1.1-6.1); Lymphocytes # 0.4 K/mcL (0.6-4.6); Lymphocytes % 2.7 %; Mean Corpuscular HGB Conc 34.4 g/dL (31.6-35.5); Mean Corpuscular Volume 92.9 fL (83.0-100.0); Mean Platelet Volume 11.7 fL (9.4-12.4); Monocytes # 1.5 K/mcL (0.0-1.3); Monocytes % 9.3 %; Nucleated Red Blood Cells 2.4 /100 WBC (0); Red Blood Count 2.69 M/mcL (4.19-5.50); Red Cell Distribution Width 16.9 % (11.5-14.5); Segmented Neutrophils % 84.5 %
[2017-06-12 02:36] LABS: Neutrophils # 13.9 K/mcL (1.6-8.9)
[2017-06-12 02:38] LABS: Platelet Count 7 K/mcL (140-400)
[2017-06-12 02:55] LABS: Platelet Estimate Decreased (Normal); Tear Drop Cells 1+ (Not Present)
[2017-06-12 02:57] LABS: Anisocytosis 1+ (Not Present)
[2017-06-12] MEDS ORDERED: 0.9 % Sodium Chloride 250 ML ONE (03:06)
[2017-06-12 03:29] LABS: BUN/Creatinine Ratio 13 (6-26); Blood Urea Nitrogen 17 mg/dL (8-23); Calcium 7.3 mg/dL (8.6-10.3); Carbon Dioxide 23 mEq/L (23-29); Chloride 100 mEq/L (98-107); Glucose 89 mg/dL (70-105); Magnesium 2.2 mg/dL (1.6-2.6); Osmolality,Calculated 271 (280-300); Phosphorous 2.2 mg/dL (2.7-4.5); Potassium 4.4 mEq/L (3.5-5.1); Sodium 130 mEq/L (136-145); Triglycerides 347 mg/dL (< 150); eGFR For African Americans > 60 (> 60); eGFR For Non-African Americans 56 (> 60)
[2017-06-12] MEDS: Ipratropium/Albuterol Neb 3 ML IH SCH ×3 (04:11→15:53)
[2017-06-12] MEDS: *HR* Metoprolol 5 MG/5 ML VIAL IVP SCH ×3 (04:13→15:10)
[2017-06-12] MEDS: Lacri-Lube 3.5 GM TUBE BOTH EYES SCH ×4 (04:13→15:10)
[2017-06-12 04:47] LABS: VBG Ionized Calcium 1.03 mmol/L (1.15-1.35); VBG PH 7.28 pH Units (7.32-7.42)
[2017-06-12 05:31] LABS: ABG Base Excess 0 mEq/L (-2 to 3); ABG HCO3 26 mEq/L (21-27); ABG Oxygen Saturation 95 % (95-98); ABG PCO2 46 mmHg (35-45); ABG PH 7.35 pH Units (7.32-7.45); ABG PO2 82 mmHg (85-104); ABG TCO2 27 mEq/L (20-26); Blood Gas Modality ASSIST CONTROL; Blood Gas PEEP 10 cm H2O; Blood Gas Respiration Rate 26; Blood Gas VT 500 cc
[2017-06-12] MEDS: FentaNYL (PF) 2,500 MCG in EMPTY BAG 1 EACH IVC SCH (06:43)
[2017-06-12] MEDS: 0.9 % Sodium Chloride 1,000 ML PRIME SCH ×2 (07:43→15:11)
[2017-06-12] MEDS: Dextrose 50 % in Water (Vial) 50 ML in D5% in 0.2% NACL 500 ML IVC SCH (07:43)
[2017-06-12] MEDS: Levothyroxine Sodium 100 MCG VIAL IVP SCH (07:53)
[2017-06-12] MEDS: Nicotine 21 MG PATCH.TD24 TD SCH (07:53)
[2017-06-12] MEDS: Chlorhexidine Rinse 15 ML MOUTHWASH MM SCH (07:53)
[2017-06-12] MEDS: Pantoprazole 40 MG VIAL IVP SCH (07:53)
[2017-06-12] MEDS: Fluticasone Propionate Nasal 50 MCG/SPRAY BOTTLE NS SCH (07:53)
--- NOTE | 2017-06-12 08:06 | Pulmonology Progress Note ---
<Zach Terry - Last Filed: 06/12/17 14:11> Date of Encounter: 06/12/17 Time of Encounter: 08:06 Assessment and Plan (1) Acute respiratory failure Status: Acute CTA chest and a straight small bilateral pleural effusions with patchy airspace disease in the lower lobes suggesting possible pneumonia Ventilator support at 26, 500, 60, 10 (decreased oxygen from 70-60) Sedation regimen: precedex, propofol and fentanyl ABG this morning shows pH of 7.35, PCO2 46, PO2 82 and HCO3 326 Tolerating Domenic removal at 50 mL per hour and a total of just shy of 5000 L yesterday After long discussion with family at bedside, they want to move forward with comfort care only and CODE status changes to DNR-CC Qualifiers: Respiratory failure complication: hypoxia Qualified Code(s): J96.01 - Acute respiratory failure with hypoxia (2) Shock Status: Acute Vasodilatory shock likely secondary to sepsis Recent echocardiogram demonstrates EF of 60-65%, indeterminate diastolic function, mild MR, mild TR. Technically poor study due to ventilator and multiple wall motions were not visualized We will continue pressure support: - Levophed, vaso and Taj Responded well to albumin Lactic acid pending this morning DOMENIC pulled off 5L Discontinue vancomycin and meropenem and switched to only Zosyn Discontinue hydrocortisone yesterday Blood cultures showing NGTD Transitioning to comfort care measures only per family's wishes (3) Thrombocytopenia Status: Acute Platelets have been dropping down to 7 today He was initially obtaining platelets due to limited availability in the area Patient has received a total of 2 units Sunday No evidence of hemorrhage or sensation at this time Order haptoglobin, LDH, fibrinogen (4) Anemia Status: Acute Hgb stabilizing at a 0.6 Will continue to monitor Qualifiers: Anemia type: unspecified type Qualified Code(s): D64.9 - Anemia, unspecified (5) S/P aorto-bifemoral bypass surgery Status: Acute Vascular surgery following Aspirin daily (6) RUBY (acute kidney injury) Status: Acute RUBY improving to 1.29 Minimal urine production over the last 24 hours 5L off yesterday off from DOMENIC (7) Hypertension Status: Chronic Qualifiers: Hypertension type: essential hypertension Qualified Code(s): I10 - Essential (primary) hypertension (8) Atrial fibrillation Status: Chronic History of paroxysmal atrial fibrillation that was seen to have flutter over the weekend Discontinue amiodarone drip yesterday Normal sinus rhythm in the 90s on telemetry this morning Qualifiers: Atrial fibrillation type: paroxysmal Qualified Code(s): I48.0 - Paroxysmal atrial fibrillation (9) CAD (coronary artery disease) Status: Chronic Qualifiers: Coronary Disease-Associated Artery/Lesion type: [place] artery [place] vs. transplanted heart: [place] heart Associated angina: without angina Qualified Code(s): I25.10 - Atherosclerotic heart disease of [place] coronary artery without angina pectoris (10) Hyperlipidemia Status: Chronic Qualifiers: Hyperlipidemia type: mixed hyperlipidemia Qualified Code(s): E78.2 - Mixed hyperlipidemia (11) Pleural effusion, left Status: Acute (12) Diabetes mellitus Status: Chronic No evidence of home medication. Patient presented with hypoglycemia we will continue to monitor and add sliding scale coverage as needed Qualifiers: Diabetes mellitus type: type 2 Diabetes mellitus complication status: with unspecified complications Diabetes mellitus assistant terminal manager insulin use: unspecified assistant terminal manager insulin use status Qualified Code(s): E11.8 - Type 2 diabetes mellitus with unspecified complications (13) DVT prophylaxis Status: Acute Holding due to thrombocytopenia Subjective Principal diagnosis: Septic shock, respiratory failure Interval history: Patient is admitted for acute respiratory failure secondary to pneumonia, metabolic encephalopathy and vasodilatory shock secondary to sepsis Patient appears comfortable lying in bed this morning He is requiring a third pressor this morning Undergoing DOMENIC - removed just under 5 L yesterday Nursing reports that he is been less responsive to simple commands and has no corneal or gag reflex over the last 24 hours After discussion with family at bedside today, we will change CODE STATUS to DNR CC Objective PUL Vital signs: Last Vital Signs Temp 97.1 F L 06/12/17 04:11 Pulse 101 06/12/17 08:00 Resp 26 06/12/17 08:00 BP 90/51 06/12/17 08:00 Pulse Ox 94 06/12/17 08:00 General appearance: no acute distress Eyes: nonicteric, other (no corneal reflex) ENT: oropharynx moist, other (no gag reflex) Auscultation: bilateral: diminished breath sounds Cardiovascular: regular rate and rhythm Gastrointestinal: hypoactive bowel sounds Integumentary: other (Midline abdominal incision has been draining small amounts of serousanginous fluid over the last 24 hours) Extremities: pulses normal, cyanosis (Noted on bilateral fingertips and toes), edema Musculoskeletal: no deformities unable to assess due to mental status Ventilator Settings Ventilator Settings: Ventilator Settings, Last 8 Hours Ventilator Mode A/C Ventilator Mode A/C Ventilator Mode A/C Ventilator Mode A/C Ventilator Mode A/C Ventilator Mode A/C Ventilator Mode A/C Ventilator Mode A/C Ventilator Mode A/C Ventilator Mode A/C Ventilator Mode A/C Ventilator Mode A/C Ventilator Mode A/C Ventilator Tidal Volume 500 Setting Ventilator Tidal Volume 500 Setting Ventilator Tidal Volume 500 Setting Ventilator Tidal Volume 500 Setting Ventilator Tidal Volume 500 Setting Ventilator Tidal Volume 500 Setting Ventilator Tidal Volume 500 Setting Ventilator Tidal Volume 500 Setting Ventilator Tidal Volume 500 Setting Ventilator Tidal Volume 500 Setting Ventilator Tidal Volume 500 Setting Ventilator Tidal Volume 500 Setting Ventilator Tidal Volume 500 Setting Ventilator Respiratory Rate 26 Setting Ventilator Respiratory Rate 26 Setting Ventilator Respiratory Rate 26 Setting Ventilator Respiratory Rate 26 Setting Ventilator Respiratory Rate 26 Setting Ventilator Respiratory Rate 26 Setting Ventilator Respiratory Rate 26 Setting Ventilator Respiratory Rate 26 Setting Ventilator Respiratory Rate 26 Setting Ventilator Respiratory Rate 26 Setting Ventilator Respiratory Rate 26 Setting Ventilator Respiratory Rate 26 Setting Ventilator Respiratory Rate 26 Setting Actual Respiratory Rate 26 Actual Respiratory Rate 26 Actual Respiratory Rate 26 Actual Respiratory Rate 26 Actual Respiratory Rate 26 Actual Respiratory Rate 26 Actual Respiratory Rate 30 Actual Respiratory Rate 27 Actual Respiratory Rate 26 Actual Respiratory Rate 26 Actual Respiratory Rate 28 Actual Respiratory Rate 28 Positive End Expiratory 10 Pressure Positive End Expiratory 10 Pressure Positive End Expiratory 10 Pressure Positive End Expiratory 10 Pressure Positive End Expiratory 10 Pressure Positive End Expiratory 10 Pressure Positive End Expiratory 10 Pressure Positive End Expiratory 10 Pressure Positive End Expiratory 10 Pressure Positive End Expiratory 10 Pressure Positive End Expiratory 10 Pressure Positive End Expiratory 10 Pressure Positive End Expiratory 10 Pressure Peak Inspiratory Airway 32 Pressure Peak Inspiratory Airway 31 Pressure Peak Inspiratory Airway 33 Pressure Peak Inspiratory Airway 32 Pressure Peak Inspiratory Airway 34 Pressure Peak Inspiratory Airway 34 Pressure Peak Inspiratory Airway 35 Pressure Peak Inspiratory Airway 34 Pressure Peak Inspiratory Airway 33 Pressure Peak Inspiratory Airway 34 Pressure Peak Inspiratory Airway 34 Pressure Peak Inspiratory Airway 31 Pressure Results - Laboratory Findings CBC and BMP: 06/12/17 02:23 06/12/17 02:23 ABG ABG pH 7.35 pH Units (7.32-7.45) 06/12/17 05:26 ABG pCO2 46 mmHg (35-45) H 06/12/17 05:26 ABG pO2 82 mmHg (85-104) L 06/12/17 05:26 ABG O2 Saturation 95 % (95-98) 06/12/17 05:26 PT/INR, D-dimer PT 17.8 Seconds (9.4-12.1) H 06/10/17 07:20 Abnormal lab findings: Abnormal lab results WBC 16.4 K/mcL (4.3-11.1) H 06/12/17 02:23 RBC 2.69 M/mcL (4.19-5.50) L 06/12/17 02:23 Hgb 8.6 g/dL (12.9-16.9) L 06/12/17 02:23 Hct 25.0 % (37.5-50.1) L 06/12/17 02:23 RDW 16.9 % (11.5-14.5) H 06/12/17 02:23 Plt Count 7 K/mcL (140-400) L* D 06/12/17 02:23 Band Neutrophils % 18.0 % (0-4) H 06/10/17 11:20 Metamyelocytes % 6.0 % (0) H 06/09/17 11:20 Myelocytes % 2.0 % (0) H 06/10/17 11:20 Neutrophils # 13.9 K/mcL (1.6-8.9) H 06/12/17 02:23 Lymphocytes # 0.4 K/mcL (0.6-4.6) L 06/12/17 02:23 Monocytes # 1.5 K/mcL (0.0-1.3) H 06/12/17 02:23 Nucleated RBCs/100 WBC 2.4 /100 WBC (0) H 06/12/17 02:23 Reactive Lymphocytes Present (Not Present) A 06/09/17 19:30 Smudge Cells Present (Not Present) A 06/09/17 19:30 Toxic Granulation Present (Not Present) A 06/09/17 19:30 Toxic Vacuolation Present (Not Present) A 06/09/17 19:30 Dohle Bodies Present (Not Present) A 06/09/17 11:20 Platelet Estimate Decreased (Normal) L 06/12/17 02:23 Large Platelets Present (Not Present) A 06/09/17 02:30 Immature Plt Fraction 8.7 % (1.1-6.1) H 06/12/17 02:23 Polychromasia 1+ (Not Present) A 06/10/17 17:27 Basophilic Stippling 1+ (Not Present) A 06/09/17 11:20 Anisocytosis 1+ (Not Present) A 06/12/17 02:23 Tear Drop Cells 1+ (Not Present) A 06/12/17 02:23 Cedar Cells 1+ (Not Present) A 06/09/17 11:20 PT 17.8 Seconds (9.4-12.1) H 06/10/17 07:20 APTT 46.2 Seconds (26.0-36.0) H 06/09/17 04:00 ABG pCO2 46 mmHg (35-45) H 06/12/17 05:26 ABG pO2 82 mmHg (85-104) L 06/12/17 05:26 ABG Total CO2 27 mEq/L (20-26) H 06/12/17 05:26 ABG Hematocrit 37.0 % (37.5-50.1) L 06/07/17 12:07 VBG pH 7.28 pH Units (7.32-7.42) L 06/12/17 04:40 VBG pCO2 31 mmHg (41-51) L 06/11/17 18:35 VBG pO2 222 mmHg (25-50) H 06/11/17 18:35 Glucose 178 mg/dL (60-95) H 06/07/17 12:07 Sodium 130 mEq/L (136-145) L 06/12/17 02:23 Est GFR (Non-Af Amer) 56 (> 60) L 06/12/17 02:23 Calculated Osmolality 271 (280-300) L 06/12/17 02:23 Lactic Acid 3.8 mmol/L (0.5-2.2) H 06/11/17 07:40 Calcium 7.3 mg/dL (8.6-10.3) L 06/12/17 02:23 Venous Ioniz Calcium 1.03 mmol/L (1.15-1.35) L 06/12/17 04:40 Phosphorus 2.2 mg/dL (2.7-4.5) L 06/12/17 02:23 Total Bilirubin 1.9 mg/dL (0.3-1.0) H 06/11/17 07:40 Direct Bilirubin 0.9 mg/dL (0.0-0.2) H 06/11/17 07:40 AST 221 Units/L (13-39) H 06/11/17 07:40 Creatine Kinase 1228 Units/L (30-223) H 06/09/17 05:49 Troponin I 0.19 ng/mL (< 0.04) H* 06/09/17 05:49 B-Natriuretic Peptide 346 pg/mL (Less than 100) H 06/08/17 17:15 Serum Total Protein 4.8 g/dL (6.4-8.9) L 06/11/17 07:40 Globulin 1.1 g/dL (2.4-3.5) L 06/11/17 07:40 Albumin/Globulin Ratio 3.4 (1.1-2.2) H 06/11/17 07:40 Prealbumin 5.0 mg/dL (17.0-34.0) L 06/12/17 02:23 Triglycerides 347 mg/dL (< 150) H 06/12/17 02:23 TSH 16.394 mcIU/mL (0.340-5.600) H 06/08/17 17:15 Arterial Blood Ionized Calcium 0.91 mmol/L (1.15-1.35) L 06/10/17 17:40 - Microbiology Findings Microbiology Findings: Microbiology, Last 48 Hours 06/08/17 19:10 Blood Culture - Preliminary Peripheral Venipuncture No growth. 06/08/17 18:54 Blood Culture - Preliminary Peripheral Venipuncture No growth. 06/08/17 18:45 Urine Culture - Final Urine,[place] No growth. - Clinical Findings Intake & Output: Intake & Output 06/11/17 06/12/17 06/12/17 23:59 07:59 15:59 Intake Total 1325.0 / 1325.0 2029.2 / 2029.2 Output Total 1737 / 1737 2142 / 2142 269 / 269 Balance -412.0 / -412.0 -112.8 / -112.8 -269 / -269 Weight 105.2 kg 104.8 kg - VTE Documentation of Mechanical Device: Intermittent pneumatic compression device Consult Discharge Plan - Plan Referrals: Joni Lora MD [Partnered Physician] - 07/17/17 2:20 pm Arti Thacker MD [Primary Care Provider] - 06/15/17 11:00 am <Dinorah Shah S - Last Filed: 06/12/17 20:28> Date of Encounter: 06/12/17 Objective PUL Vital signs: Last Vital Signs Temp 97.1 F L 06/12/17 04:11 Pulse 94 06/12/17 13:00 Resp 28 06/12/17 13:00 BP 61/51 06/12/17 13:00 Pulse Ox 94 06/12/17 13:00 Ventilator Settings Ventilator Settings: Ventilator Settings, Last 8 Hours Ventilator Mode A/C Ventilator Tidal Volume 500 Setting Ventilator Respiratory Rate 26 Setting Actual Respiratory Rate 26 Positive End Expiratory 10 Pressure Peak Inspiratory Airway 29 Pressure Results - Laboratory Findings CBC and BMP: 06/12/17 02:23 06/12/17 02:23 ABG ABG pH 7.35 pH Units (7.32-7.45) 06/12/17 05:26 ABG pCO2 46 mmHg (35-45) H 06/12/17 05:26 ABG pO2 82 mmHg (85-104) L 06/12/17 05:26 ABG O2 Saturation 95 % (95-98) 06/12/17 05:26 PT/INR, D-dimer PT 12.7 Seconds (9.4-12.1) H 06/12/17 09:56 Abnormal lab findings: Abnormal lab results WBC 16.4 K/mcL (4.3-11.1) H 06/12/17 02:23 RBC 2.69 M/mcL (4.19-5.50) L 06/12/17 02:23 Hgb 8.6 g/dL (12.9-16.9) L 06/12/17 02:23 Hct 25.0 % (37.5-50.1) L 06/12/17 02:23 RDW 16.9 % (11.5-14.5) H 06/12/17 02:23 Plt Count 7 K/mcL (140-400) L* D 06/12/17 02:23 Band Neutrophils % 18.0 % (0-4) H 06/10/17 11:20 Metamyelocytes % 6.0 % (0) H 06/09/17 11:20 Myelocytes % 2.0 % (0) H 06/10/17 11:20 Neutrophils # 13.9 K/mcL (1.6-8.9) H 06/12/17 02:23 Lymphocytes # 0.4 K/mcL (0.6-4.6) L 06/12/17 02:23 Monocytes # 1.5 K/mcL (0.0-1.3) H 06/12/17 02:23 Nucleated RBCs/100 WBC 2.4 /100 WBC (0) H 06/12/17 02:23 Reactive Lymphocytes Present (Not Present) A 06/09/17 19:30 Smudge Cells Present (Not Present) A 06/09/17 19:30 Toxic Granulation Present (Not Present) A 06/09/17 19:30 Toxic Vacuolation Present (Not Present) A 06/09/17 19:30 Dohle Bodies Present (Not Present) A 06/09/17 11:20 Platelet Estimate Decreased (Normal) L 06/12/17 02:23 Large Platelets Present (Not Present) A 06/09/17 02:30 Immature Plt Fraction 8.7 % (1.1-6.1) H 06/12/17 02:23 Polychromasia 1+ (Not Present) A 06/10/17 17:27 Basophilic Stippling 1+ (Not Present) A 06/09/17 11:20 Anisocytosis 1+ (Not Present) A 06/12/17 02:23 Tear Drop Cells 1+ (Not Present) A 06/12/17 02:23 Cedar Cells 1+ (Not Present) A 06/09/17 11:20 PT 12.7 Seconds (9.4-12.1) H 06/12/17 09:56 APTT 46.2 Seconds (26.0-36.0) H 06/09/17 04:00 Fibrinogen 402 mg/dL (169-393) H D 06/12/17 09:56 ABG pCO2 46 mmHg (35-45) H 06/12/17 05:26 ABG pO2 82 mmHg (85-104) L 06/12/17 05:26 ABG Total CO2 27 mEq/L (20-26) H 06/12/17 05:26 ABG Hematocrit 37.0 % (37.5-50.1) L 06/07/17 12:07 VBG pH 7.28 pH Units (7.32-7.42) L 06/12/17 04:40 VBG pCO2 31 mmHg (41-51) L 06/11/17 18:35 VBG pO2 222 mmHg (25-50) H 06/11/17 18:35 Glucose 178 mg/dL (60-95) H 06/07/17 12:07 Sodium 130 mEq/L (136-145) L 06/12/17 02:23 Est GFR (Non-Af Amer) 56 (> 60) L 06/12/17 02:23 Calculated Osmolality 271 (280-300) L 06/12/17 02:23 Lactic Acid 2.7 mmol/L (0.5-2.2) H 06/12/17 08:17 Calcium 7.3 mg/dL (8.6-10.3) L 06/12/17 02:23 Venous Ioniz Calcium 0.98 mmol/L (1.15-1.35) L 06/12/17 10:06 Phosphorus 2.2 mg/dL (2.7-4.5) L 06/12/17 02:23 Total Bilirubin 1.9 mg/dL (0.3-1.0) H 06/11/17 07:40 Direct Bilirubin 0.9 mg/dL (0.0-0.2) H 06/11/17 07:40 AST 221 Units/L (13-39) H 06/11/17 07:40 Lactate Dehydrogenase 867 Units/L (140-271) H 06/12/17 09:56 Creatine Kinase 1228 Units/L (30-223) H 06/09/17 05:49 Troponin I 0.19 ng/mL (< 0.04) H* 06/09/17 05:49 B-Natriuretic Peptide 346 pg/mL (Less than 100) H 06/08/17 17:15 Serum Total Protein 4.8 g/dL (6.4-8.9) L 06/11/17 07:40 Globulin 1.1 g/dL (2.4-3.5) L 06/11/17 07:40 Albumin/Globulin Ratio 3.4 (1.1-2.2) H 06/11/17 07:40 Prealbumin 5.0 mg/dL (17.0-34.0) L 06/12/17 02:23 Triglycerides 347 mg/dL (< 150) H 06/12/17 02:23 TSH 16.394 mcIU/mL (0.340-5.600) H 06/08/17 17:15 Arterial Blood Ionized Calcium 1.02 mmol/L (1.15-1.35) L 06/12/17 04:33 - Clinical Findings Intake & Output: Intake & Output 06/12/17 06/12/17 06/12/17 07:59 15:59 23:59 Intake Total 2029.2 / 2029.2 1255.2 / 1255.2 Output Total 2142 / 2142 1113 / 1113 Balance -112.8 / -112.8 142.2 / 142.2 Weight 105.2 kg 104.8 kg - Attending Attestation I saw and evaluated this patient and my medical decision-making was reviewed with the Resident Physician. I agree with the documented findings, disposition and treatment plan as described except to the extent set forth below. We independently had [id number] contact with the patient Patient seen and examined at bedside Labs, radiology, chart personally reviewed. 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 [employer]:Patient is obtunded not following commands patient is intubated and ventilated , SUPERVIS[employer] failure secondary to toxic /metabolic encephalopathy , Today patient doesnt have a gag reflex , corneal reflex concern about spontaneous intracranial bleed in the setting of profound thrombocytopenia will get CT Head Pulm: Patient has multifocal infiltrates with some fluid overload needs high FIO2 and PEEP adjusted TV as much for a lung protective ventilation strategy to continue broad spectrum antibiotics to descalate today Cards:Septic shock on Levophed now his blood pressure is borderline will need second vasopressor FEN-GI:Patient is on TPN as according to surgery we cannot use the Gut. Renal:Acute kidney Injury on CVVH no urine output patient is looking at some short to penitentiary dialysis ID:No growth in cultures to date will start descalating antibiotics Heme/Onc:Thrombocytopenia can be due to sepsis will keep platelets more than 20, 000 there is no active bleeding , after pack of platelets his platelets are down trending to dangerous level to 7000 , patient is developing antibodies there is no much platelet available for this patient from [facility] Endo: Glucose Monitored Integ/MSK: Skin Care per routine ICU Nursing Protocol to prevent ulcers. Lines: All lines examined without evidence of infection : Dispo: Critically ill overall poor prognosis Had a lengthy discussion with the Family in presence of Dr.Dr.Greeno Guido explained with plain lay men terms what is going on patient family wanted to get the CT Head will think about goals of care in line with 's Wishes . CODE:DNRCCA family is leaning towards to DNRCC will change once family is ready .
[2017-06-12] MEDS: Aspirin Enteric Coated 81 MG Tablet PO SCH (08:13)
--- NOTE | 2017-06-12 08:14 | Nephrology Progress Note ---
Date of Encounter: 06/12/17 Time of Encounter: 08:12 - Assessment and Plan (1) RUBY (acute kidney injury) Current Visit: Yes Status: Acute Patient has oliguric acute kidney injury following aortobifem bypass. He is currently on CVVH. He exhibits signs of septic shock. We will continue with the current CVVH regimen. He is hypophosphatemic and he will receive some phosphorus supplementation. (2) S/P aorto-bifemoral bypass surgery Current Visit: Yes Status: Acute (3) Respiratory failure Current Visit: Yes Status: Acute Qualifiers: Chronicity: acute Respiratory failure complication: unspecified whether with hypoxia or hypercapnia Qualified Code(s): J96.00 - Acute respiratory failure, unspecified whether with hypoxia or hypercapnia Subjective Principal diagnosis: Septic shock, respiratory failure Interval history: The patient remains sedated on the ventilator. He is hypotensive. He is on levo fed at 30 mics per minute. He is oliguric. He continues on CVVH for control of his acute kidney injury and azotemia. Objective - Vital Signs Vital signs: Vital Signs Temp Pulse Resp BP Pulse Ox 06/12/17 08:00 101 26 90/51 94 06/12/17 07:46 26 60 06/12/17 07:15 100 06/12/17 07:00 94 26 89/54 95 06/12/17 06:09 26 111/63 95 06/12/17 06:00 98 26 105/59 95 06/12/17 05:00 97 26 96/56 98 06/12/17 04:11 97.1 F L 98 30 150/74 94 06/12/17 04:00 97.3 F L 98 26 94/54 97 06/12/17 03:56 98 06/12/17 03:49 97.3 F L 92 29 89/51 98 06/12/17 03:34 97.0 F L 90 26 89/53 98 06/12/17 03:00 94 27 91/58 98 06/12/17 02:00 96 26 89/53 97 06/12/17 01:36 28 141/79 92 06/12/17 01:00 102 27 95/57 97 06/12/17 00:00 96.4 F L 87 28 104/60 96 06/11/17 23:21 96.2 F L 89 26 94/57 96 06/11/17 23:11 85 06/11/17 23:00 84 28 100/60 95 06/11/17 22:52 26 102/59 95 06/11/17 22:00 87 27 85/55 95 06/11/17 21:52 96.1 F L 80 27 99/58 94 06/11/17 21:37 96.5 F L 93 26 83/51 93 06/11/17 21:00 100 26 93/54 93 06/11/17 20:00 97.5 F L 85 27 113/62 94 06/11/17 19:50 26 117/62 94 06/11/17 19:42 90 06/11/17 19:00 87 30 93/54 94 06/11/17 18:00 84 26 146/69 92 06/11/17 17:00 98 28 82/50 94 06/11/17 16:48 26 94 06/11/17 16:00 94 28 80/48 93 06/11/17 15:00 98.1 F 82 34 95/48 90 06/11/17 14:00 101 26 96/52 91 06/11/17 13:00 95 28 74/47 93 06/11/17 12:33 28 93 06/11/17 12:00 95 32 92 06/11/17 11:25 31 91 06/11/17 11:00 101 30 84/49 91 06/11/17 10:00 84 28 93/52 94 06/11/17 09:34 98.4 F 94 28 81/59 06/11/17 09:00 89 28 120/65 95 Intake and Output 06/11/17 06/12/17 06/12/17 23:59 07:59 15:59 Intake Total 1325.0 / 1325.0 2029.2 / 2029.2 Output Total 1737 / 1737 2142 / 2142 269 / 269 Balance -412.0 / -412.0 -112.8 / -112.8 -269 / -269 Intake: IV Fluids 1121.0 / 1121.0 1737.2 / 1737.2 PrismaSATE BGK 4/2.5 5,000 ML @ 0 / 0 0 / 0 2000 mls/hr CRRT CONT [facility] Rx#: [id number] PRECEDEX Premix 400 mcg In 100 198.0 / 198.0 224.6 / 224.6 ml @ 0.2 MCG/KG/HR 3.58 mls/hr IVC .Q24H [facility] Rx#:[id number] FentaNYL (PF) 2,500 MCG In 39.2 / 39.2 48.6 / 48.6 Empty Bag 1 Each @ 50 MCG/HR 1 mls/hr IVC CONT [facility] Rx#: [id number] Clinimix E 5%-20% SOLUTION 2, 340.1 / 340.1 383.5 / 383.5 000 ML @ 50 mls/hr IVC .Q24H [facility] with M.v.i. Adult 10 ml Rx# :[id number] Levophed 8 MG In Dextrose 5% 342.1 / 342.1 422.1 / 422.1 250 ML @ 5 MCG/MIN 9.67 mls/hr IVC CONT [facility] Rx#:[id number] Diprivan 1,000 mg In 100 ml @ 100.0 / 100.0 10 MCG/KG/MIN 6.312 mls/hr IVC .[id number] [facility] Rx#:[id number] Calcium Gluconate 1,000 MG In 0 60 / 60 120 / 120 .9 % Sodium Chloride 50 ML @ 111 mls/hr IVPB Q6HR PRN Rx#: [id number] Intralipid 20% 250 ML @ 21 mls/ 141.6 / 141.6 108.4 / 108.4 hr IVPB DAILY@1700 [facility] Rx#: [id number] Zosyn 3.375 GM In 0.9 % Sodium 200 / 200 Chloride 100 ML @ 25 mls/hr IVPB Q8H [facility] Rx#:[id number] Sodium Phosphate 30 MMOL In 0.9 130.0 / 130.0 % Sodium Chloride 250 ML @ 42 mls/hr IVPB Q12H PRN Rx#: [id number] Blood Product 292 / 292 Platelet Pheresis Lp Irr 2nd 292 / 292 Unit [id number] Platelet Pheresis Lp Irr 2nd / Unit [id number] Output: Becka 1712 / 1712 2132 / 2132 269 / 269 Rectal Tube 0 / 0 0 / 0 Catheter 25 / 25 10 / 10 Gastric Drainage 0 / 0 0 / 0 Other: Weight 105.2 kg 104.8 kg Blood Glucose* 105 99 85 Patient Weight 06/12/17 23:59 Weight 104.8 kg - General Appearance Exam: Patient sedated on the ventilator. He is in no acute distress. There is a temporary dialysis catheter in the internal jugular vein. Lungs coarse breath sounds. Abdomen is benign. Some lower extremity swelling. - Lab 06/12/17 02:23 06/12/17 02:23 Most recent lab results ABG pH 7.35 pH Units (7.32-7.45) 06/12/17 05:26 ABG pCO2 46 mmHg (35-45) H 06/12/17 05:26 ABG pO2 82 mmHg (85-104) L 06/12/17 05:26 ABG HCO3 26 mEq/L (21-27) 06/12/17 05:26 ABG O2 Saturation 95 % (95-98) 06/12/17 05:26 Calcium 7.3 mg/dL (8.6-10.3) L 06/12/17 02:23 Phosphorus 2.2 mg/dL (2.7-4.5) L 06/12/17 02:23 Magnesium 2.2 mg/dL (1.6-2.6) 06/12/17 02:23 - VTE Documentation of Mechanical Device: Intermittent pneumatic compression device Consult Discharge Plan - Plan Referrals: Joni Lora MD [Partnered Physician] - 07/17/17 2:20 pm Arti Thacker MD [Primary Care Provider] - 06/15/17 11:00 am
--- NOTE | 2017-06-12 08:56 | Palliative Progress Note ---
<Shea Siddiqui-Rachelle - Last Filed: 06/12/17 13:22> Date of Encounter: 06/12/17 Time of Encounter: 08:20 - Assessment and plan (1) Goals of care, counseling/discussion Status: Acute Assessment and plan: Patient's current code status is DNR-Comfort Care Arrest. The patient does not officially have a medical POA. Per family, the patient has been living with his son (Zander) and Zander's . The patient's sister (Yue) and his son have agreed that the patient "would not want to live like this". Family is planning to all meet at approximately 11:00 am to further discuss goals of care with the treatment and palliative time. Palliative team will continue to follow. (2) S/P aorto-bifemoral bypass surgery Status: Acute Assessment and plan: Plan per vascular surgery team. (3) Shock Status: Acute Assessment and plan: Patient is on Levophed and required more sedation overnight. Continue plan per treatment team. (4) RUBY (acute kidney injury) Status: Acute Assessment and plan: Patient is on CVVH at this time. Nephrology is following this patient. Plan per treatment team. (5) Acute respiratory failure Status: Acute Assessment and plan: Patient is intubated and sedated. Continue plan per treatment team. Qualifiers: Respiratory failure complication: hypoxia Qualified Code(s): J96.01 - Acute respiratory failure with hypoxia - Time Spent With Patient Total time spent is greater than 50% in coordination of care (as documented) at patient's floor/unit and/or counseling patient: 25 - 35 minutes - Subjective Interval history: The patient was seen and examined at bedside. Patient's sister is at bedside. Patient is sedated and intubated. He does not appear to be in acute distress. He is currently undergoing CVVH for his RUBY and is on Levophed for his hypotension. Per nurse, overnight the patient required more sedation. Patient was breath stacking last night and his oxygen saturation were in the low to mid 80s. Family was informed that the patient's white blood count has increased and his platelets are decreasing. Sister is very teary at bedside and told me that "this is not how he would want to be". She stated that she can see the patient is not getting better and "it doesn't look good for him." She mentioned to me that the patient has been depressed for some time after the patient had lost his brother two years ago and his one year ago. Per nurse, the son is prepared to withdraw care soon. However, the family is waiting on two of the patient's daughters to arrive to make a group decision. - Constitutional Vitals: Abnormal lab results WBC 16.4 K/mcL (4.3-11.1) H 06/12/17 02:23 RBC 2.69 M/mcL (4.19-5.50) L 06/12/17 02:23 Hgb 8.6 g/dL (12.9-16.9) L 06/12/17 02:23 Hct 25.0 % (37.5-50.1) L 06/12/17 02:23 RDW 16.9 % (11.5-14.5) H 06/12/17 02:23 Plt Count 7 K/mcL (140-400) L* D 06/12/17 02:23 Band Neutrophils % 18.0 % (0-4) H 06/10/17 11:20 Metamyelocytes % 6.0 % (0) H 06/09/17 11:20 Myelocytes % 2.0 % (0) H 06/10/17 11:20 Neutrophils # 13.9 K/mcL (1.6-8.9) H 06/12/17 02:23 Lymphocytes # 0.4 K/mcL (0.6-4.6) L 06/12/17 02:23 Monocytes # 1.5 K/mcL (0.0-1.3) H 06/12/17 02:23 Nucleated RBCs/100 WBC 2.4 /100 WBC (0) H 06/12/17 02:23 Reactive Lymphocytes Present (Not Present) A 06/09/17 19:30 Smudge Cells Present (Not Present) A 06/09/17 19:30 Toxic Granulation Present (Not Present) A 06/09/17 19:30 Toxic Vacuolation Present (Not Present) A 06/09/17 19:30 Dohle Bodies Present (Not Present) A 06/09/17 11:20 Platelet Estimate Decreased (Normal) L 06/12/17 02:23 Large Platelets Present (Not Present) A 06/09/17 02:30 Immature Plt Fraction 8.7 % (1.1-6.1) H 06/12/17 02:23 Polychromasia 1+ (Not Present) A 06/10/17 17:27 Basophilic Stippling 1+ (Not Present) A 06/09/17 11:20 Anisocytosis 1+ (Not Present) A 06/12/17 02:23 Tear Drop Cells 1+ (Not Present) A 06/12/17 02:23 Rajni Cells 1+ (Not Present) A 06/09/17 11:20 PT 17.8 Seconds (9.4-12.1) H 06/10/17 07:20 APTT 46.2 Seconds (26.0-36.0) H 06/09/17 04:00 ABG pCO2 46 mmHg (35-45) H 06/12/17 05:26 ABG pO2 82 mmHg (85-104) L 06/12/17 05:26 ABG Total CO2 27 mEq/L (20-26) H 06/12/17 05:26 ABG Hematocrit 37.0 % (37.5-50.1) L 06/07/17 12:07 VBG pH 7.28 pH Units (7.32-7.42) L 06/12/17 04:40 VBG pCO2 31 mmHg (41-51) L 06/11/17 18:35 VBG pO2 222 mmHg (25-50) H 06/11/17 18:35 Glucose 178 mg/dL (60-95) H 06/07/17 12:07 Sodium 130 mEq/L (136-145) L 06/12/17 02:23 Est GFR (Non-Af Amer) 56 (> 60) L 06/12/17 02:23 Calculated Osmolality 271 (280-300) L 06/12/17 02:23 Lactic Acid 3.8 mmol/L (0.5-2.2) H 06/11/17 07:40 Calcium 7.3 mg/dL (8.6-10.3) L 06/12/17 02:23 Venous Ioniz Calcium 1.03 mmol/L (1.15-1.35) L 06/12/17 04:40 Phosphorus 2.2 mg/dL (2.7-4.5) L 06/12/17 02:23 Total Bilirubin 1.9 mg/dL (0.3-1.0) H 06/11/17 07:40 Direct Bilirubin 0.9 mg/dL (0.0-0.2) H 06/11/17 07:40 AST 221 Units/L (13-39) H 06/11/17 07:40 Creatine Kinase 1228 Units/L (30-223) H 06/09/17 05:49 Troponin I 0.19 ng/mL (< 0.04) H* 06/09/17 05:49 B-Natriuretic Peptide 346 pg/mL (Less than 100) H 06/08/17 17:15 Serum Total Protein 4.8 g/dL (6.4-8.9) L 06/11/17 07:40 Globulin 1.1 g/dL (2.4-3.5) L 06/11/17 07:40 Albumin/Globulin Ratio 3.4 (1.1-2.2) H 06/11/17 07:40 Prealbumin 5.0 mg/dL (17.0-34.0) L 06/12/17 02:23 Triglycerides 347 mg/dL (< 150) H 06/12/17 02:23 TSH 16.394 mcIU/mL (0.340-5.600) H 06/08/17 17:15 Arterial Blood Ionized Calcium 0.91 mmol/L (1.15-1.35) L 06/10/17 17:40 General appearance: Present: no acute distress Exam: Patient is sedated and intubated. - Head Head exam: Present: atraumatic - Eye Eye exam: Present: PERRL - Neck Neck exam: Absent: lymphadenopathy Additional comments: Mahurkar line for HD in the left IJ. Central line is in the right IJ. - Respiratory Respiratory exam: Absent: accessory muscle use, rales, respiratory distress, wheezes Additional comments: Coarse breath sounds are heard in the bilateral upper lung moseley. Patient is sedated and intubated. - Cardiovascular Cardiovascular exam: Present: RRR, +S1, +S2. Absent: bradycardia, tachycardia Additional comments: Patient is on Levophed. - GI/Abdominal GI/Abdominal exam: Present: distended, soft Additional comments: Surgical incisions are clean, dry and intact. - exam: Present: scrotal swelling External exam: Present: swelling - Extremities Exam Extremities exam: Present: pedal edema. Absent: calf tenderness Additional comments: +1 Pitting edema in bilateral lower extremities. Distal pulses +1/4 bilaterally. - Neurological Exam Neurological exam: Absent: alert, oriented X3 Additional comments: Patient is sedated and intubated. Palliative Quality Palliative Quality: Screen for Code Status: Yes, Screen for Goals of Care: Yes, Screen for Pain: NA, If Pain Regimen Started, Initiate Bowel Regimen: NA, Screen for Nausea/Vomitting: NA Code Status: 06/09/17 07:48 CODE [Resuscitation Status: Active] [RES] Routine Comment: Resuscitation Status: DNR-Comfort Care-Arrest - Labs CBC & Chem 7: 06/12/17 02:23 06/12/17 02:23 Labs: Laboratory Results - last 24 hr 06/07/17 06/11/17 06/11/17 08:15 03:30 08:59 WBC RBC Hgb Hct MCV MCH MCHC RDW Plt Count MPV Immature Gran % Seg Neutrophils % Lymphocytes % Monocytes % Eosinophils % Basophils % Neutrophils # Lymphocytes # Monocytes # Eosinophils # Basophils # Nucleated RBCs/100 WBC Platelet Estimate Immature Plt Fraction Anisocytosis Tear Drop Cells Sample Site ABG pH ABG pCO2 ABG pO2 ABG HCO3 ABG Total CO2 ABG O2 Saturation ABG Base Excess VBG pH VBG pCO2 VBG pO2 VBG HCO3 Respiration Rate O2 Delivery Device Blood Gas Modality Inspired O2 Tidal Volume PEEP Sodium Potassium Chloride Carbon Dioxide BUN Creatinine Est GFR ( Amer) Est GFR (Non-Af Amer) BUN/Creatinine Ratio Glucose POC Glucose 79 Calculated Osmolality Calcium Venous Ioniz Calcium Phosphorus Magnesium Prealbumin Triglycerides Random Vancomycin 15 Blood Type Antibody Screen Crossmatch See Detail 06/11/17 06/11/17 06/11/17 12:23 13:13 13:13 WBC RBC Hgb Hct MCV MCH MCHC RDW Plt Count 15 L* MPV Immature Gran % Seg Neutrophils % Lymphocytes % Monocytes % Eosinophils % Basophils % Neutrophils # Lymphocytes # Monocytes # Eosinophils # Basophils # Nucleated RBCs/100 WBC Platelet Estimate Immature Plt Fraction Anisocytosis Tear Drop Cells Sample Site ABG pH ABG pCO2 ABG pO2 ABG HCO3 ABG Total CO2 ABG O2 Saturation ABG Base Excess VBG pH VBG pCO2 VBG pO2 VBG HCO3 Respiration Rate O2 Delivery Device Blood Gas Modality Inspired O2 Tidal Volume PEEP Sodium Potassium Chloride Carbon Dioxide BUN Creatinine Est GFR ( Amer) Est GFR (Non-Af Amer) BUN/Creatinine Ratio Glucose POC Glucose 81 Calculated Osmolality Calcium Venous Ioniz Calcium Phosphorus Magnesium 2.0 Prealbumin Triglycerides Random Vancomycin Blood Type Antibody Screen Crossmatch 06/11/17 06/11/17 06/11/17 13:27 16:06 16:20 WBC RBC Hgb Hct MCV MCH MCHC RDW Plt Count MPV Immature Gran % Seg Neutrophils % Lymphocytes % Monocytes % Eosinophils % Basophils % Neutrophils # Lymphocytes # Monocytes # Eosinophils # Basophils # Nucleated RBCs/100 WBC Platelet Estimate Immature Plt Fraction Anisocytosis Tear Drop Cells Sample Site ABG pH ABG pCO2 ABG pO2 ABG HCO3 ABG Total CO2 ABG O2 Saturation ABG Base Excess VBG pH 7.40 VBG pCO2 36 L VBG pO2 261 H VBG HCO3 22 Respiration Rate O2 Delivery Device Blood Gas Modality Inspired O2 Tidal Volume PEEP Sodium Potassium Chloride Carbon Dioxide BUN Creatinine Est GFR ( Amer) Est GFR (Non-Af Amer) BUN/Creatinine Ratio Glucose POC Glucose 69 Calculated Osmolality Calcium Venous Ioniz Calcium 0.92 L Phosphorus Magnesium Prealbumin Triglycerides Random Vancomycin Blood Type B POSITIVE Antibody Screen NEGATIVE Crossmatch See Detail 06/11/17 06/11/17 06/11/17 18:19 18:35 18:44 WBC RBC Hgb Hct MCV MCH MCHC RDW Plt Count MPV Immature Gran % Seg Neutrophils % Lymphocytes % Monocytes % Eosinophils % Basophils % Neutrophils # Lymphocytes # Monocytes # Eosinophils # Basophils # Nucleated RBCs/100 WBC Platelet Estimate Immature Plt Fraction Anisocytosis Tear Drop Cells Sample Site ABG pH ABG pCO2 ABG pO2 ABG HCO3 ABG Total CO2 ABG O2 Saturation ABG Base Excess VBG pH 7.38 7.44 H 7.47 H VBG pCO2 39 L 31 L VBG pO2 258 H 222 H VBG HCO3 23 21 Respiration Rate O2 Delivery Device Blood Gas Modality Inspired O2 Tidal Volume PEEP Sodium Potassium Chloride Carbon Dioxide BUN Creatinine Est GFR ( Amer) Est GFR (Non-Af Amer) BUN/Creatinine Ratio Glucose POC Glucose Calculated Osmolality Calcium Venous Ioniz Calcium 0.93 L Phosphorus Magnesium Prealbumin Triglycerides Random Vancomycin Blood Type Antibody Screen Crossmatch 06/11/17 06/11/17 06/12/17 20:20 23:45 00:04 WBC RBC Hgb Hct MCV MCH MCHC RDW Plt Count MPV Immature Gran % Seg Neutrophils % Lymphocytes % Monocytes % Eosinophils % Basophils % Neutrophils # Lymphocytes # Monocytes # Eosinophils # Basophils # Nucleated RBCs/100 WBC Platelet Estimate Immature Plt Fraction Anisocytosis Tear Drop Cells Sample Site ABG pH ABG pCO2 ABG pO2 ABG HCO3 ABG Total CO2 ABG O2 Saturation ABG Base Excess VBG pH 7.28 L D VBG pCO2 VBG pO2 VBG HCO3 Respiration Rate O2 Delivery Device Blood Gas Modality Inspired O2 Tidal Volume PEEP Sodium Potassium Chloride Carbon Dioxide BUN Creatinine Est GFR ( Amer) Est GFR (Non-Af Amer) BUN/Creatinine Ratio Glucose POC Glucose 105 H 99 H Calculated Osmolality Calcium Venous Ioniz Calcium 1.00 L Phosphorus Magnesium Prealbumin Triglycerides Random Vancomycin Blood Type Antibody Screen Crossmatch 06/12/17 06/12/17 06/12/17 02:23 02:23 02:23 WBC 16.4 H RBC 2.69 L Hgb 8.6 L Hct 25.0 L MCV 92.9 MCH 32.0 MCHC 34.4 RDW 16.9 H Plt Count 7 L* D MPV 11.7 Immature Gran % 0.9 Seg Neutrophils % 84.5 Lymphocytes % 2.7 Monocytes % 9.3 Eosinophils % 2.2 Basophils % 0.4 Neutrophils # 13.9 H Lymphocytes # 0.4 L Monocytes # 1.5 H Eosinophils # 0.4 Basophils # 0.1 Nucleated RBCs/100 WBC 2.4 H Platelet Estimate Decreased L Immature Plt Fraction 8.7 H Anisocytosis 1+ A Tear Drop Cells 1+ A Sample Site ABG pH ABG pCO2 ABG pO2 ABG HCO3 ABG Total CO2 ABG O2 Saturation ABG Base Excess VBG pH VBG pCO2 VBG pO2 VBG HCO3 Respiration Rate O2 Delivery Device Blood Gas Modality Inspired O2 Tidal Volume PEEP Sodium 130 L Potassium 4.4 Chloride 100 Carbon Dioxide 23 BUN 17 Creatinine 1.29 Est GFR ( Amer) > 60 Est GFR (Non-Af Amer) 56 L BUN/Creatinine Ratio 13 Glucose 89 POC Glucose Calculated Osmolality 271 L Calcium 7.3 L Venous Ioniz Calcium Phosphorus 2.2 L Magnesium 2.2 Prealbumin 5.0 L Triglycerides 347 H Random Vancomycin Blood Type Antibody Screen Crossmatch 06/12/17 06/12/17 06/12/17 04:07 04:40 05:26 WBC RBC Hgb Hct MCV MCH MCHC RDW Plt Count MPV Immature Gran % Seg Neutrophils % Lymphocytes % Monocytes % Eosinophils % Basophils % Neutrophils # Lymphocytes # Monocytes # Eosinophils # Basophils # Nucleated RBCs/100 WBC Platelet Estimate Immature Plt Fraction Anisocytosis Tear Drop Cells Sample Site Art Line ABG pH 7.35 ABG pCO2 46 H ABG pO2 82 L ABG HCO3 26 ABG Total CO2 27 H ABG O2 Saturation 95 ABG Base Excess 0 VBG pH 7.28 L VBG pCO2 VBG pO2 VBG HCO3 Respiration Rate 26 O2 Delivery Device Adult Vent Blood Gas Modality ASSIST CONTROL Inspired O2 70.0 Tidal Volume 500 PEEP 10 Sodium Potassium Chloride Carbon Dioxide BUN Creatinine Est GFR ( Amer) Est GFR (Non-Af Amer) BUN/Creatinine Ratio Glucose POC Glucose 99 H Calculated Osmolality Calcium Venous Ioniz Calcium 1.03 L Phosphorus Magnesium Prealbumin Triglycerides Random Vancomycin Blood Type Antibody Screen Crossmatch 06/12/17 07:22 WBC RBC Hgb Hct MCV MCH MCHC RDW Plt Count MPV Immature Gran % Seg Neutrophils % Lymphocytes % Monocytes % Eosinophils % Basophils % Neutrophils # Lymphocytes # Monocytes # Eosinophils # Basophils # Nucleated RBCs/100 WBC Platelet Estimate Immature Plt Fraction Anisocytosis Tear Drop Cells Sample Site ABG pH ABG pCO2 ABG pO2 ABG HCO3 ABG Total CO2 ABG O2 Saturation ABG Base Excess VBG pH VBG pCO2 VBG pO2 VBG HCO3 Respiration Rate O2 Delivery Device Blood Gas Modality Inspired O2 Tidal Volume PEEP Sodium Potassium Chloride Carbon Dioxide BUN Creatinine Est GFR ( Amer) Est GFR (Non-Af Amer) BUN/Creatinine Ratio Glucose POC Glucose 85 Calculated Osmolality Calcium Venous Ioniz Calcium Phosphorus Magnesium Prealbumin Triglycerides Random Vancomycin Blood Type Antibody Screen Crossmatch - Impressions Impressions Echocardiogram 06/09/17 05:12 Impressions: Technically challenging windows - patient supine on ventilator. LVEF 60-65%. Indeterminate diastolic function. RV is normal in size. Function appears mildly reduced. Mild mitral regurgitation. Mild tricuspid regurgitation. Mild pulmonary hypertension by TR gradient, 36 mmHg. Aortic root appears normal in size. Parts of the aortic root and ascending aorta are not well visualized. Left Ventricular Wall Motion: Rest Echo Findings The apical anterior, mid anterior, basal anterior, mid anterior septal, mid inferior lateral, basal anterior septal and basal inferior lateral ho were not visualized. All other wall segments showed normal motion. Findings: Study Quality * Technically challenging windows - patient supine on ventilator. ECG Findings * Probably sinus rhythm with ectopy. Left Ventricle * Normal LV size. Wall thickness measurements are not well taken. * LVEF 60-65%. * Indeterminate diastolic function. Right Ventricle * RV is normal in size. Function appears mildly reduced. Left Atrium * Normal left atrial size. Right Atrium * Normal right atrial size. Aortic Valve * Aortic valve not well visualized. * No aortic stenosis. * Trace aortic regurgitation. Mitral Valve * Mildly calcified mitral valve leaflets. * No mitral stenosis. * Mild mitral regurgitation. Tricuspid Valve * Tricuspid valve not well visualized. * Mild tricuspid regurgitation. Pulmonic Valve * Pulmonic valve is not well visualized. * No pulmonic stenosis. * No pulmonic regurgitation. Pulmonary Artery * Pulmonary artery not well visualized. Aorta * Aortic root appears normal in size. Parts of the aortic root and ascending aorta are not well visualized. Pericardium * There is no pericardial effusion present. Interatrial Septum * Interatrial septum not well evaluated. IVC * The IVC is not well evaluated - patient on mechanical ventilation. Chest X-Ray 06/11/17 14:37 IMPRESSION: Line and tube placements. Bilateral pleural effusions with multifocal infection or asymmetric edema. D/ / 06/11/2017 15:31:58 Anibal Galloway MD / chetan Interpreting Provider: Anibal Galloway MD - ABG Interpretation ABG results: ABG ABG pH 7.35 pH Units (7.32-7.45) 06/12/17 05:26 ABG pCO2 46 mmHg (35-45) H 06/12/17 05:26 ABG pO2 82 mmHg (85-104) L 06/12/17 05:26 ABG O2 Saturation 95 % (95-98) 06/12/17 05:26 PT/INR, D-dimer PT 17.8 Seconds (9.4-12.1) H 06/10/17 07:20 Consult Discharge Plan - Plan Referrals: Joni Lora MD [Partnered Physician] - 07/17/17 2:20 pm Arti Thacker MD [Primary Care Provider] - 06/15/17 11:00 am <Pérez Diaz - Last Filed: 06/13/17 09:16> Date of Encounter: 06/13/17 - Time Spent With Patient Total time spent is greater than 50% in coordination of care (as documented) at patient's floor/unit and/or counseling patient: - Constitutional Vitals: Abnormal lab results WBC 16.4 K/mcL (4.3-11.1) H 06/12/17 02:23 RBC 2.69 M/mcL (4.19-5.50) L 06/12/17 02:23 Hgb 8.6 g/dL (12.9-16.9) L 06/12/17 02:23 Hct 25.0 % (37.5-50.1) L 06/12/17 02:23 RDW 16.9 % (11.5-14.5) H 06/12/17 02:23 Plt Count 7 K/mcL (140-400) L* D 06/12/17 02:23 Band Neutrophils % 18.0 % (0-4) H 06/10/17 11:20 Metamyelocytes % 6.0 % (0) H 06/09/17 11:20 Myelocytes % 2.0 % (0) H 06/10/17 11:20 Neutrophils # 13.9 K/mcL (1.6-8.9) H 06/12/17 02:23 Lymphocytes # 0.4 K/mcL (0.6-4.6) L 06/12/17 02:23 Monocytes # 1.5 K/mcL (0.0-1.3) H 06/12/17 02:23 Nucleated RBCs/100 WBC 2.4 /100 WBC (0) H 06/12/17 02:23 Reactive Lymphocytes Present (Not Present) A 06/09/17 19:30 Smudge Cells Present (Not Present) A 06/09/17 19:30 Toxic Granulation Present (Not Present) A 06/09/17 19:30 Toxic Vacuolation Present (Not Present) A 06/09/17 19:30 Dohle Bodies Present (Not Present) A 06/09/17 11:20 Platelet Estimate Decreased (Normal) L 06/12/17 02:23 Large Platelets Present (Not Present) A 06/09/17 02:30 Immature Plt Fraction 8.7 % (1.1-6.1) H 06/12/17 02:23 Polychromasia 1+ (Not Present) A 06/10/17 17:27 Basophilic Stippling 1+ (Not Present) A 06/09/17 11:20 Anisocytosis 1+ (Not Present) A 06/12/17 02:23 Tear Drop Cells 1+ (Not Present) A 06/12/17 02:23 Rajni Cells 1+ (Not Present) A 06/09/17 11:20 PT 12.7 Seconds (9.4-12.1) H 06/12/17 09:56 APTT 46.2 Seconds (26.0-36.0) H 06/09/17 04:00 Fibrinogen 402 mg/dL (169-393) H D 06/12/17 09:56 ABG pCO2 46 mmHg (35-45) H 06/12/17 05:26 ABG pO2 82 mmHg (85-104) L 06/12/17 05:26 ABG Total CO2 27 mEq/L (20-26) H 06/12/17 05:26 ABG Hematocrit 37.0 % (37.5-50.1) L 06/07/17 12:07 VBG pH 7.28 pH Units (7.32-7.42) L 06/12/17 04:40 VBG pCO2 31 mmHg (41-51) L 06/11/17 18:35 VBG pO2 222 mmHg (25-50) H 06/11/17 18:35 Glucose 178 mg/dL (60-95) H 06/07/17 12:07 Sodium 130 mEq/L (136-145) L 06/12/17 02:23 Est GFR (Non-Af Amer) 56 (> 60) L 06/12/17 02:23 Calculated Osmolality 271 (280-300) L 06/12/17 02:23 Lactic Acid 2.7 mmol/L (0.5-2.2) H 06/12/17 08:17 Calcium 7.3 mg/dL (8.6-10.3) L 06/12/17 02:23 Venous Ioniz Calcium 0.98 mmol/L (1.15-1.35) L 06/12/17 10:06 Phosphorus 2.2 mg/dL (2.7-4.5) L 06/12/17 02:23 Total Bilirubin 1.9 mg/dL (0.3-1.0) H 06/11/17 07:40 Direct Bilirubin 0.9 mg/dL (0.0-0.2) H 06/11/17 07:40 AST 221 Units/L (13-39) H 06/11/17 07:40 Lactate Dehydrogenase 867 Units/L (140-271) H 06/12/17 09:56 Creatine Kinase 1228 Units/L (30-223) H 06/09/17 05:49 Troponin I 0.19 ng/mL (< 0.04) H* 06/09/17 05:49 B-Natriuretic Peptide 346 pg/mL (Less than 100) H 06/08/17 17:15 Serum Total Protein 4.8 g/dL (6.4-8.9) L 06/11/17 07:40 Globulin 1.1 g/dL (2.4-3.5) L 06/11/17 07:40 Albumin/Globulin Ratio 3.4 (1.1-2.2) H 06/11/17 07:40 Prealbumin 5.0 mg/dL (17.0-34.0) L 06/12/17 02:23 Triglycerides 347 mg/dL (< 150) H 06/12/17 02:23 TSH 16.394 mcIU/mL (0.340-5.600) H 06/08/17 17:15 Arterial Blood Ionized Calcium 1.02 mmol/L (1.15-1.35) L 06/12/17 04:33 - Attending Attestation I examined this patient and my medical decision-making was reviewed with the Resident Physician. I agree with the documented findings, disposition and treatment plan as described except to the extent set forth below. Palliative Quality Code Status: 06/09/17 07:48 CODE [Resuscitation Status: Active] [RES] Routine Comment: Resuscitation Status: DNR-Comfort Care-Arrest 06/12/17 13:44 CODE [Resuscitation Status: Active] [RES] Routine Comment: Resuscitation Status: DNR-Comfort Care - Labs CBC & Chem 7: 06/12/17 02:23 06/12/17 02:23 Labs: Laboratory Results - last 24 hr 06/11/17 06/12/17 06/12/17 16:20 04:33 08:17 PT INR Fibrinogen Lactic Acid 2.7 H Venous Ioniz Calcium Lactate Dehydrogenase Arterial Blood Ionized Calcium 1.02 L Crossmatch See Detail 06/12/17 06/12/17 06/12/17 09:56 09:56 10:06 PT 12.7 H INR 1.2 Fibrinogen 402 H D Lactic Acid Venous Ioniz Calcium 0.98 L Lactate Dehydrogenase 867 H Arterial Blood Ionized Calcium Crossmatch - Impressions Impressions Head CT 06/12/17 11:37 IMPRESSION: 1. No acute intracranial abnormality. 2. Biparietal scalp hematomas. 3. Senescent changes. D/ / Edward Mcmahan / Edward Mcmahan Interpreting Provider: Edward Mcmahan - ABG Interpretation ABG results: ABG ABG pH 7.35 pH Units (7.32-7.45) 06/12/17 05:26 ABG pCO2 46 mmHg (35-45) H 06/12/17 05:26 ABG pO2 82 mmHg (85-104) L 06/12/17 05:26 ABG O2 Saturation 95 % (95-98) 06/12/17 05:26 PT/INR, D-dimer PT 12.7 Seconds (9.4-12.1) H 06/12/17 09:56
[2017-06-12 09:41] LABS: ABG Ionized Calcium 1.02 mmol/L (1.15-1.35)
[2017-06-12 10:11] LABS: VBG Ionized Calcium 0.98 mmol/L (1.15-1.35)
[2017-06-12 10:36] LABS: INR 1.2; Prothrombin Time 12.7 Seconds (9.4-12.1)
--- NOTE | 2017-06-12 12:07 | Vascular/Endovas Progress Note ---
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 He remains sedated and intubated. The patient has decreased need for pressors today. He requires significant vent support at this time. He remains on CVVH. He remains anuric. He continues to experience thrombocytopenia despite transfusion. Additional platelets have been ordered, but are currently unavailable. CT of the head today if the patient is stable for transport. Patient discussed with Dr. Cleveland, Dr. Diaz and the family. He remains critically ill. Qualifiers: Peripheral atherosclerosis artery type: bypass graft, nonbiological Lower extremity ulceration location: heel Qualified Code(s): I70.634 - Atherosclerosis of nonbiological bypass graft(s) of the right leg with ulceration of heel and midfoot; I70.644 - Atherosclerosis of nonbiological bypass graft(s) of the left leg with ulceration of heel and midfoot; I70.644 - Atherosclerosis of nonbiological bypass graft(s) of the left leg with ulceration of heel and midfoot; I70.644 - Atherosclerosis of nonbiological bypass graft(s) of the left leg with ulceration of heel and midfoot; I70.644 - Atherosclerosis of nonbiological bypass graft(s) of the left leg with ulceration of heel and midfoot; I70.644 - Atherosclerosis of nonbiological bypass graft(s) of the left leg with ulceration of heel and midfoot; I70.644 - Atherosclerosis of nonbiological bypass graft(s) of the left leg with ulceration of heel and midfoot (2) Hypertension Current Visit: Yes Status: Chronic Continue with beta anais. Qualifiers: Hypertension type: essential hypertension Qualified Code(s): I10 - Essential (primary) hypertension (3) Atrial fibrillation Current Visit: Yes Status: Chronic Qualifiers: Atrial fibrillation type: paroxysmal Qualified Code(s): I48.0 - Paroxysmal atrial fibrillation (4) CAD (coronary artery disease) Current Visit: Yes Status: Chronic Qualifiers: Coronary Disease-Associated Artery/Lesion type: [place] artery [place] vs. transplanted heart: [place] heart Associated angina: without angina Qualified Code(s): I25.10 - Atherosclerotic heart disease of [place] coronary artery without angina pectoris (5) Hyperlipidemia Current Visit: Yes Status: Chronic Qualifiers: Hyperlipidemia type: mixed hyperlipidemia Qualified Code(s): E78.2 - Mixed hyperlipidemia (6) Tobacco abuse Current Visit: Yes Status: Acute Nicotine patch - Subjective Interval history: Currently sedated and intubated. Vital Signs, Last 4 Hours Pulse Resp BP Pulse Ox 06/12/17 12:00 93 26 89/46 95 06/12/17 11:18 26 96 06/12/17 11:00 112 26 76/45 96 06/12/17 10:18 26 96 06/12/17 10:00 97 26 84/48 95 06/12/17 09:00 90 28 98/53 95 - Physical Examination General: Present: Other (intubated) Cardiac: Present: Reg Rate and Rhythm Lungs: Present: Decreased breath sounds Neuro: Present: Other (sedated) Vascular: Present: Normal capillary refill, Pulse, normal (pedal signals poplyphasic), Surgical incisions (incisions clean and dry without erythema, serosanguinous drainage at midline wound). Absent: Cyanosis Abdomen: Present: Soft, Other (no bowel sounds) Skin: Present: No rashes noted on visualized skin - VTE Documentation of Mechanical Device: Intermittent pneumatic compression device Results 06/12/17 02:23 06/12/17 02:23 Lab Results, Last 24 hours 06/11/17 06/11/17 06/12/17 13:13 13:13 02:23 WBC Hgb Hct Plt Count 15 L* INR Sodium 130 L Potassium 4.4 Chloride 100 Carbon Dioxide 23 BUN 17 Creatinine 1.29 Glucose 89 Calcium 7.3 L Magnesium 2.0 2.2 06/12/17 06/12/17 02:23 09:56 WBC 16.4 H Hgb 8.6 L Hct 25.0 L Plt Count 7 L* D INR 1.2 Sodium Potassium Chloride Carbon Dioxide BUN Creatinine Glucose Calcium Magnesium Consult Discharge Plan - Plan Referrals: Joni Lora MD [Partnered Physician] - 07/17/17 2:20 pm Arti Thacker MD [Primary Care Provider] - 06/15/17 11:00 am
[2017-06-12] MEDS ORDERED: Phenylephrine 50 MG in D5% in Water 250 ML IVC SCH (13:15)
[2017-06-12 13:21] VITALS: BP 61/51
[2017-06-12] MEDS ORDERED: Atropine Sulfate 1% 40 DROP/2 ML BOTTLE SL PRN (14:19)
[2017-06-12] MEDS ORDERED: Haloperidol Lactate 5 MG/ML VIAL IVP PRN (14:19)
--- NOTE | 2017-06-12 15:30 | Electrocardiograph Report ---
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
[2017-06-12] MEDS ORDERED: *HR* LORazepam 2 MG/ML VIAL IVP SCH (16:00)
[2017-06-12] MEDS ORDERED: Clinimix E 5%-20% SOLUTION 2,000 ML with MVI, adult with vitamin K 10 ML IVC SCH (17:00)
--- NOTE | 2017-06-12 17:04 | Electrocardiograph Report ---
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
--- NOTE | 2017-06-12 17:05 | Death Note ---
<Zach Terry - Last Filed: 06/12/17 17:06> Discharge Sum: Summary - Date and Time Date of admission: 06/07/17 15:09 Date of : 06/12/17 Time of : 16:50 - Summary Details: 66-year-old male with history of diabetes, CAD, atrial fibrillation, peripheral vascular disease who arrives to [facility] for an elective aortobifemoral bypass due to associated worsening of peripheral vascular disease by vascular surgery. The patient became very short of breath and became tachypneic. The patient was subsequently placed on BiPAP. The patient continued to deteriorate and become hypotensive. He was given 2 L of normal saline fluid boluses and transported to the ICU for further care and workup. He was subsequently intubated and a central line was placed at bedside due to hypotension. The patient was noted to have a small left pleural effusion. Given the patient's recent intubation and now respiratory failure we are concerned about infectious etiology with possible pneumonia. The patient was started on vancomycin and Zosyn. Blood cultures were drawn as well. The patient was placed on a norepinephrine drip. The patient was also noted to be hypoglycemic and upon arrival to the ICU his glucose was most recently 32. The patient was given D50 and started on a D10 drip at this time. The patient is currently sedated with fentanyl. Patient's renal function has continued to worsen so the patient will be started on a heparin drip with concern for possible PE given the patient's past history of DVT and immediate change in respiratory status. The patient's hemoglobin will be continued to be trended. A noncontrast CT of the chest, abdomen, pelvis or unremarkable. The patient has no bruising noted in his abdomen that is worsening and no changes in his incision cote. This was noted also by vascular surgeon who evaluated the patient. Throughout his hospital admission, patient experienced acute respiratory failure , vasodilatory shock, acute kidney injury, thrombocytopenia, anemia and runs of atrial fibrillation with RVR. Blood cultures have shown no growth. Lactic acid is trended up to 6.2 has been down to 2.7 today. Acute kidney injury has improved with Becka. Patient has required up to 4 pressors with hydrocortisone and albumin for blood pressure support that often waxed and waned where he would require down to 1-2 pressors and then back up to 4. Patient has been expressing worsening thrombocytopenia that is down to 7K today. Due to his specific antibodies in his blood, there is been little to no availability for platelets in the [facility] region. Within the last 24-48 hours, nursing reports that patient has been less responsive to simple commands and is minimally arousable off paralytics. This morning, patient has lost gag and corneal reflexes. Head CT was unremarkable. At that time, patient was found to have worsening hypotension again and was up to 3 pressors. Palliative care team was consulted. After long discussion with the family at bedside, the family would like to proceed with comfort care measures and wishes to discontinue aggressive interventions at this time. Patient was terminally extubated this afternoon and patient at 1650 with family at bedside. All concerns, questions and spiritual needs were addressed. - Additional Data Confirmation of as documented by pronouncing clinician: no pulse, no respirations, no heart sounds, pupils fixed and dilated Family: at bedside Attending physician: Joni Lora MD Discharge Sum: Diag - PCOD Probable Cause of : Septic shock Discharge Sum: Prov - Provider Primary care physician: Arti Thacker, Consults: 06/07/17 15:33 Consult to Wound Care [CONS] Routine Reason for Consult: Bilateral heel ulcers. Patient underwent aortobifemoral bypass 06/07/17. Call Completed: No PT [Consult to Physical Therapy] [CONS] Routine Comment: Evaluate, develop and implement POC Reason for Consult: PVD with ulcertion s/p aortobifemoral bypass 06/07/17. 06/07/17 15:47 Consult to Nutrition [CONS] Routine Comment: Consulting Provider: NUTRITION Reason for Dietary Consult: PO Supplementation 06/08/17 12:39 Consult to Interventional Radiology [CONS] Stat Consulting Provider: Radiology Interventional Cols Reason for Consult: Ng tube placement under fluroscopy Call Completed: Yes 06/08/17 17:11 Consult to Critical Care [CONS] Stat Consulting Provider: Pulm Crit Care & Sleep [place] Reason for Consult: Acute hypoxic respiratory failure Call Completed: Yes 06/08/17 17:41 Consult to Invasive Line Access Team [CONS] Routine Reason for Consult: Limited vascular access with Rapid Response Line Type: EPIV 06/09/17 05:26 Consult to Nephrology [CONS] Stat Consulting Provider: Kidney & HTN Spclst TOSHIA Reason for Consult: [place], RUBY Call Completed: Yes 06/11/17 11:19 Consult to Palliative Care [CONS] Routine Comment: Consulting Provider: Palliative Care [place] Reason for Consult: End of life decisions Call Completed: No dietary consult [Consult to Nutrition] [CONS] Routine Comment: Consulting Provider: NUTRITION Reason for Dietary Consult: TPN Start and Manage Pronouncing clinician: Zach Terry <Dinorah Shah S - Last Filed: 06/12/17 20:34> Discharge Sum: Summary - Date and Time Date of admission: 06/07/17 15:09 - Additional Data Attending physician: Joni Lora MD Discharge Sum: Prov - Provider Primary care physician: Arti Thacker, Consults: 06/07/17 15:33 Consult to Wound Care [CONS] Routine Reason for Consult: Bilateral heel ulcers. Patient underwent aortobifemoral bypass 06/07/17. Call Completed: No PT [Consult to Physical Therapy] [CONS] Routine Comment: Evaluate, develop and implement POC Reason for Consult: PVD with ulcertion s/p aortobifemoral bypass 06/07/17. 06/07/17 15:47 Consult to Nutrition [CONS] Routine Comment: Consulting Provider: NUTRITION Reason for Dietary Consult: PO Supplementation 06/08/17 12:39 Consult to Interventional Radiology [CONS] Stat Consulting Provider: Radiology Interventional Cols Reason for Consult: Ng tube placement under fluroscopy Call Completed: Yes 06/08/17 17:11 Consult to Critical Care [CONS] Stat Consulting Provider: Pulm Crit Care & Sleep [place] Reason for Consult: Acute hypoxic respiratory failure Call Completed: Yes 06/08/17 17:41 Consult to Invasive Line Access Team [CONS] Routine Reason for Consult: Limited vascular access with Rapid Response Line Type: EPIV 06/09/17 05:26 Consult to Nephrology [CONS] Stat Consulting Provider: Kidney & HTN Spclst [place]OSHIA Reason for Consult: [place], RUBY Call Completed: Yes 06/11/17 11:19 Consult to Palliative Care [CONS] Routine Comment: Consulting Provider: Palliative Care [place] Reason for Consult: End of life decisions Call Completed: No dietary consult [Consult to Nutrition] [CONS] Routine Comment: Consulting Provider: NUTRITION Reason for Dietary Consult: TPN Start and Manage - Attending Attestation I agree with documentation on the Discharge summary as outlined by resident physician with few additional comments Patient with profound septic shock secondary to aspiration with multiorgan dysfunction syndrome 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
== END 2017-06-12 16:50 | disposition expired | DRG 169 ==
LOC: SAMDAY 06:00 → 2NNU 15:09 → ICNU 06-08 17:04
PROVIDERS: ADMIT Surgery; ATTEND Surgery